=== PATIENT | female | born 1935 | race Caucasian/White ===

== ENCOUNTER → 2016-12-25 | Outpatient (CLI) | payer MEDICARE ==
[~2016-12-25] MED LIST: REGADENOSON 0.4 MG/5 ML SYRINGE IV ONE
--- NOTE | 2016-12-25 12:21 | P.STRESS ---
- Stress Test Note Stress Test Results/Findings: Exam Performed: NM stress lexiscan cardiolite Exam Date: 12/25/16 Reason for Exam: CP Height: 5 ft 1 in Weight: 68.039 kg Protocol: LEXISCAN Stage: Duration of Exercise: 5:00 Resting Heart Rate: 45 Resting Blood Pressure: 131/69 Maximum Achieved Heart Rate: 73 Maximum Achieved Blood Pressure: 170/64 85% PMHR: 100% PMHR: METS: Technologist Comment: Stress Test Results/Findings: The test is being done to evaluate symptoms of chest pain. Patient has history of hypertension and smoking. Patient EKG showed sinus rhythm with normal IL interval and QRS duration with mild nonspecific ST-T changes. EKG taken during and after the Lexiscan infusion did not reveal any changes to sized ischemia. Final impression: #1. Negative Lexiscan stress test #2. Report on nuclear images to be given by the radiologist
--- NOTE | 2016-12-25 13:28 | NM ---
EXAMINATION TYPE: NM stress lexiscan cardiolite DATE OF EXAM: 12/25/2016 COMPARISON: Previous exam 02/05/2013 HISTORY: Chest pain, R07.9 TECHNIQUE: After the intravenous administration of 10.91 mCi Tc 99m Sestamibi - Cardiolite resting S PECT images acquired 45 minutes post injection. The patient received 0.4mg Lexiscan, 29.7 mCi Tc 99m Sestamibi - Stress images obtained [address] injection FINDINGS: Review of stress and rest SPECT images demonstrates decreased uptake along the anteroapical left vent ricular myocardium on stress as compared to rest images. Gated analysis shows normal wall motion with an estimated left ventricular ejection fraction of 53 %. IMPRESSION: Pharmacologically induced left ventricular myocardial ischemia. A Yellow message has been communicated to Riley Alves MD via the [employer] Result system on 12/25/2016 1:25 PM, Message ID [id number].
--- NOTE | 2016-12-26 09:33 | EST ---
Stress Test Results/Findings: Exam Performed: NM stress lexiscan cardiolite Exam Date: 12/25/16 Reason for Exam: CP Height: 5 ft 1 in Weight: 68.039 kg Protocol: LEXISCAN Stage: Duration of Exercise: 5:00 Resting Heart Rate: 45 Resting Blood Pressure: 131/69 Maximum Achieved Heart Rate: 73 Maximum Achieved Blood Pressure: 170/64 85% PMHR: 100% PMHR: METS: Technologist Comment: Stress Test Results/Findings: The test is being done to evaluate symptoms of chest pain. Patient has history of hypertension and smoking. Patient EKG showed sinus rhythm with normal [place] interval and QRS duration with mild nonspecific ST-T changes. EKG taken during and after the Lexiscan infusion did not reveal any changes to sized ischemia. Final impression: #1. Negative Lexiscan stress test #2. Report on nuclear images to be given by the radiologist JAZMIN
== END | disposition home or self-care (01) ==
LOC: RADNMMAIN 08:25
PROVIDERS: ATTEND Family Medicine
DX: I25.9 Chronic ischemic heart disease, unspecified (principal)
CPT/HCPCS: 93017; 78452; A9500; J2785

== ENCOUNTER → 2016-12-26 | Outpatient (CLI) | payer MEDICARE ==
[2016-12-26 11:11] LABS: CH 30.8; CHCM 33.5; HCT 44.8 % (34.0-46.0); HDW 2.63; HGB 14.5 gm/dL (11.4-16.0); MCHC 32.4 g/dL (31.0-37.0); MCV 92.5 fL (80.0-100.0); Mean Platelet Volume 8.8; RBC 4.84 m/uL (3.80-5.40); RDW 14.3 % (11.5-15.5); WBC 4.7 k/uL (3.8-10.6)
[2016-12-26 11:35] LABS: ALT 42 U/L (9-52); AST 28 U/L (14-36); Anion Gap 9 mmol/L; Blood Urea Nitrogen 15 mg/dL (7-17); Carbon Dioxide 27 mmol/L (22-30); Chloride 108 mmol/L (98-107); Cholesterol 210 mg/dL (<200); HDL Cholesterol 45 mg/dL (40-60); Non-African American GFR(MDRD) 57 (>60 ml/min/1.73 sqM); Potassium 4.5 mmol/L (3.5-5.1); Sodium 144 mmol/L (137-145)
== END | disposition home or self-care (01) ==
LOC: LABPAT 10:44
PROVIDERS: ATTEND Internal Medicine Cardiovascular Disease
DX: Z01.812 Encounter for preprocedural laboratory examination (principal); E78.2 Mixed hyperlipidemia; R07.9 Chest pain, unspecified
CPT/HCPCS: 80051; 80061; 82565; 84450; 84460; 84520; 85027

== ENCOUNTER 2017-01-03 06:25 | Day surgery (SDC) | payer MEDICARE ==
[2016-12-27 16:37] VITALS: BMI 28.3
[~2017-01-03 06:25] MED LIST changes: +ALPRAZolam 0.25 MG TAB PO PRN; +ALPRAZolam 0.5 MG TAB PO PRN; +ASPIRIN 325 MG TAB PO STA; +ATORVASTATIN 80 MG TAB PO STA; +NITROGLYCERIN SL TABS 0.4 MG TAB SUBLINGUAL PRN; -REGADENOSON 0.4 MG/5 ML SYRINGE IV ONE; +SODIUM CHLORIDE 0.9% 1,000 ML in EMPTY BAG 1 BAG IV ONE
[2017-01-03 07:14] VITALS: TEMP 98
[2017-01-03] MEDS ORDERED: LIDOCAINE 2% INJ 20 MG/ML (20 ML MDV) ONE ×2 (07:19)
[2017-01-03 07:25] LABS: Anion Gap 10 mmol/L; Blood Urea Nitrogen 17 mg/dL (7-17); Calcium 8.9 mg/dL (8.4-10.2); Carbon Dioxide 20 mmol/L (22-30); Chloride 111 mmol/L (98-107); Glucose 90 mg/dL (74-99); Non-African American GFR(MDRD) 60 (>60 ml/min/1.73 sqM); Sodium 141 mmol/L (137-145)
[2017-01-03] MEDS ORDERED: fentaNYL (PF) 50 MCG/ML 2 ML AMP ONE (07:32)
[2017-01-03] MEDS ORDERED: diphenhydrAMINE 50 MG/ML 1 ML VIAL ONE (07:32)
[2017-01-03] MEDS ORDERED: MIDAZOLAM 2 MG/2 ML VIAL ONE (07:32)
[2017-01-03] MEDS ORDERED: LIDOCAINE 2% INJ 20 MG/ML SQ ONE (07:37)
[2017-01-03] MEDS ORDERED: MIDAZOLAM 2 MG/2 ML VIAL IV ONE (07:38)
[2017-01-03] MEDS ORDERED: diphenhydrAMINE 50 MG/ML 1 ML VIAL IVP ONE (07:39)
[2017-01-03 07:53] LABS: Potassium 5.6 mmol/L (3.5-5.1)
[2017-01-03] MEDS ORDERED: RX INFO: IV CONTRAST WAS GIVEN 1 EACH MISC MISCELLANE PRN (07:54)
[2017-01-03] MEDS ORDERED: IOHEXOL 350 MG/ML 125ML BOTTLE INJ ONE (07:55)
[2017-01-03] MEDS ORDERED: SODIUM CHLORIDE 0.9% 1,000 ML IV SCH (08:00)
--- NOTE | 2017-01-03 09:00 | CC ---
CARDIAC CATHETERIZATION INDICATION Chest pain with abnormal stress test. PROCEDURE NOTE After obtaining informed consent, left heart catheterization and coronary angiogram are performed via the right femoral artery using standard Riley catheters. Patient tolerated the procedure well without any obvious immediate complications. A femoral angiogram was performed and Angio-Seal was deployed for hemostasis. Patient received conscious sedation and the total sedation time was 15 minutes. FINDINGS: 1. HEMODYNAMICS: Left ventricular end-diastolic pressure is 16 to 18 mm. There is no significant gradient across the aortic valve. 2. LEFT VENTRICULOGRAM: Left ventriculogram is not performed. 3. ANGIOGRAPHIC DATA: LEFT MAIN CORONARY ARTERY: Left main coronary artery is a normal size vessel and is free of stenosis, divides into left anterior descending coronary artery and circumflex coronary artery. LAD appears calcified, shows mild atherosclerotic plaque, but no focal areas of stenosis. Left circumflex coronary artery is a nondominant vessel, shows mild nonobstructive disease. Right coronary artery is a large dominant vessel. It shows calcification and plaque build up, but no focal areas of stenosis. CONCLUSIONS 1. Mild nonobstructive coronary artery disease 2. Elevated left ventricular end-diastolic pressures. 3. False positive stress test. PLAN Patient will be treated with optimal medical therapy. Will review her outpatient lipid profile and start her on statins if necessary. JAZMIN
[2017-01-03 11:56] VITALS: BP 153/72; PULSE 43; RESP 18
== END 2017-01-03 13:12 | disposition home or self-care (01) ==
LOC: CATHCVL 06:25
PROVIDERS: ATTEND Internal Medicine Cardiovascular Disease
DX: I25.10 Atherosclerotic heart disease of native coronary artery without angina pectoris (principal); I25.84 Coronary atherosclerosis due to calcified coronary lesion; I10 Essential (primary) hypertension; Z87.891 Personal history of nicotine dependence; E07.9 Disorder of thyroid, unspecified; Z79.82 Long term (current) use of aspirin; Z79.51 Long term (current) use of inhaled steroids; Z79.899 Other long term (current) drug therapy; Z88.5 Allergy status to narcotic agent; Z88.0 Allergy status to penicillin; Z88.2 Allergy status to sulfonamides
CPT/HCPCS: 80048; 93458

== ENCOUNTER 2017-01-18 10:03 | Day surgery (SDC) | payer MEDICARE ==
[2017-01-16 15:22] VITALS: BMI 28.3
[~2017-01-18 10:03] MED LIST changes: -ALPRAZolam 0.25 MG TAB PO PRN; -ALPRAZolam 0.5 MG TAB PO PRN; -ASPIRIN 325 MG TAB PO STA; -ATORVASTATIN 80 MG TAB PO STA; +LACTATED RINGERS 1,000 ML IV SCH; +LIDOCAINE 1% 20 ML VIAL (10MG/ML) FOR IV START INTRADERMA PRN; -NITROGLYCERIN SL TABS 0.4 MG TAB SUBLINGUAL PRN; -SODIUM CHLORIDE 0.9% 1,000 ML in EMPTY BAG 1 BAG IV ONE
[2017-01-18 10:37] VITALS: RESP 16; TEMP 98.2
[2017-01-18] MEDS ORDERED: LIDOCAINE 1% INJ 10MG/ML (20 ML MDV) ONE (10:43)
[2017-01-18] MEDS ORDERED: PROPOFOL 10 MG/ML 20 ML VIAL IV ONE (10:43)
[2017-01-18 11:06] VITALS: BP 109/53; PULSE 48
--- NOTE | 2017-01-18 11:10 | P.PCN ---
Date of Procedure: 01/18/17 Procedure(s) Performed: Procedure: Esophagogastroduodenoscopy and biopsy. Preoperative diagnosis: Dysphagia and odynophagia. Postoperative diagnosis: 1. Very small sliding hiatal hernia but no obvious esophagitis or conjugated reflux disease. 2. Mild antral gastritis. 3. Multiple biopsies obtained from the duodenum, antrum and esophagus. Preparation and sedation: Was provided by anesthesia. Brief clinical history: The patient is a 81-year-old female who is referred for this evaluation because of issues with swallowing that she has been experiencing over the last year or so. She mentions dysphagia and odynophagia. There is no weight loss or other alarm symptoms. She does have history of reflux and is on acid suppressive medications. She had no recent upper endoscopy. This evaluation is to rule out complicated reflux disease or other pathology. Procedure: With the patient on her left lateral decubitus position and after informed consent and adequate sedation, I passed the Olympus-GIF 160 video upper endoscope through the cricopharyngeus down the esophagus. GE junction was around 37 cm from the incisors and there was a small sliding hiatal hernia. The endoscope was then passed into the stomach which was associated with air and inspected in detail including the retroflex view in the cardia. There was minimal mottling and erythema in the antrum but no ulcers or erosions. Pyloric channel, duodenal bulb, post bulbar area and descending duodenum showed no obvious abnormalities. Because of her symptoms, I obtained biopsies from the duodenum, antrum and esophagus then the endoscope was withdrawn. The patient tolerated the procedure well. Plan: The patient was reassured. Will await biopsy results. It is possible that we could be dealing with motility disorder at her age. I did not schedule further workup as long as she is not having any nutritional compromise or any progression of her symptoms, however, motility studies can be kept as a contingency based on her course. She will follow-up with you as planned and I will be happy to see in the office if needed.
== END 2017-01-18 12:05 | disposition home or self-care (01) ==
LOC: ORWHC2ENDO 10:03
DX: K21.0 Gastro-esophageal reflux disease with esophagitis (principal); K29.50 Unspecified chronic gastritis without bleeding; R13.10 Dysphagia, unspecified; K44.9 Diaphragmatic hernia without obstruction or gangrene; L40.9 Psoriasis, unspecified; M85.80 Other specified disorders of bone density and structure, unspecified site; I10 Essential (primary) hypertension; I25.10 Atherosclerotic heart disease of native coronary artery without angina pectoris; E78.5 Hyperlipidemia, unspecified; E07.9 Disorder of thyroid, unspecified; Z88.5 Allergy status to narcotic agent; Z88.0 Allergy status to penicillin; Z88.2 Allergy status to sulfonamides; Z91.041 Radiographic dye allergy status; Z79.899 Other long term (current) drug therapy
CPT/HCPCS: 88305; 88342; 43239; J2001; J2704

== ENCOUNTER → 2017-01-26 | Outpatient (CLI) | payer MEDICARE ==
[2017-01-26 14:15] LABS: Basophils # (A) 0.1 k/uL (0-0.2); Basophils % (A) 1 %; CH 30.7; CHCM 33.5; Eosinophils # (A) 0.2 k/uL (0-0.7); Eosinophils % (A) 2 %; HDW 2.56; HGB 14.7 gm/dL (11.4-16.0); Luc # (Auto) 0.12; Luc % (Auto) 1; Lymphocytes % (A) 12 %; MCHC 32.6 g/dL (31.0-37.0); Mean Platelet Volume 8.8; Monocytes # (A) 0.5 k/uL (0-1.0); Monocytes % (A) 6 %; Neutrophils # (A) 6.8 k/uL (1.3-7.7); Neutrophils % (A) 78 %; RBC 4.89 m/uL (3.80-5.40); RDW 14.4 % (11.5-15.5); WBC 8.8 k/uL (3.8-10.6); WBC (Perox) 8.88
[2017-01-26 14:26] LABS: ALT 32 U/L (9-52); AST 22 U/L (14-36); Alkaline Phosphatase 64 U/L (38-126); Amylase <30 U/L (30-110); Anion Gap 10 mmol/L; Blood Urea Nitrogen 14 mg/dL (7-17); Calcium 9.7 mg/dL (8.4-10.2); Carbon Dioxide 26 mmol/L (22-30); Chloride 103 mmol/L (98-107); Glucose 104 mg/dL (74-99); Non-African American GFR(MDRD) 54 (>60 ml/min/1.73 sqM); Potassium 4.6 mmol/L (3.5-5.1); Sodium 139 mmol/L (137-145); Total Bilirubin 0.7 mg/dL (0.2-1.3); Total Protein 7.1 g/dL (6.3-8.2)
--- NOTE | 2017-01-26 14:30 | XR ---
2 view abdomen HISTORY: Nausea, difficulty breathing and cough 2 views of the abdomen on 3 images. Lung bases are clear. No pneumoperitoneum or bowel obstruction. There is a spinal curvature. Question metallic artifact over the midline inferiorly. Probable phleboliths within the pelvis. Calcification present at the level just inferior of the L5 transverse process on the right measures approximately 3 mm. IMPRESSION: Nonobstructive bowel gas pattern. Additional findings above. Follow-up as indicated. Diff icult to exclude ureteral calculus.
--- NOTE | 2017-01-26 14:31 | XR ---
EXAMINATION TYPE: XR chest 2V DATE OF EXAM: 01/26/2017 COMPARISON: Prior chest x-ray 03/23/2014 HISTORY: Cough, difficulty breathing, nausea TECHNIQUE: Frontal and lateral views of the chest are obtained. FINDINGS: There is no focal air space opacity, pleural effusion, or pneumothorax seen. The cardiac silhouette size is stable, heart size may be accentuated by rotation. Patient is rotated. The osseou s structures are intact. IMPRESSION: No acute cardiopulmonary process.
== END | disposition home or self-care (01) ==
LOC: LABWHC1 13:48
PROVIDERS: ATTEND Family Medicine
DX: R11.0 Nausea (principal); R05 Cough
CPT/HCPCS: 36415; 71020; 74020; 80053; 82150; 83690; 85025

== ENCOUNTER 2018-02-04 11:26 | Observation (INO) | payer MEDICARE ==
[2018-02-04] MEDS ORDERED: methylPREDNISolone SOD SUCCI 125 MG/2 ML VIAL IV STA (11:56)
--- NOTE | 2018-02-04 11:56 | ED ---
Skin/Abscess/FB HPI <Adrian Greene - Last Filed: 02/04/18 13:12> - General Source: patient, RN notes reviewed, old records reviewed Mode of arrival: ambulatory Limitations: no limitations <Norma Nielsen - Last Filed: 02/04/18 13:45> - General Chief complaint: Skin/Abscess/Foreign Body Stated complaint: allergic rxn Time Seen by Provider: 02/04/18 11:35 - History of Present Illness Initial comments: 82-year-old female presents for his arms today with 10 days of diffuse rash over her arms, legs, abdomen and back. Patient reports that she thinks that 10 days ago she was cutting in the garden and thinks she was exposed to possibly poison oak poison ale. She does have a significant history of psoriasis. She reports sphincter from her psoriasis over the past few years. (Norma Nielsen) - Related Data Home Medications Medication Instructions Recorded Confirmed Aspirin EC [Ecotrin] 81 mg PO HS 03/23/14 02/04/18 Candesartan [Atacand] 32 mg PO HS 03/23/14 02/04/18 Calcium Carbonate [Calcium] 600 mg PO DAILY 02/15/15 02/04/18 Cholecalciferol [Vitamin D3] 2,000 unit PO QAM 02/15/15 02/04/18 Levothyroxine Sodium [Synthroid] 50 mcg PO QAM 02/15/15 02/04/18 Montelukast [Singulair] 10 mg PO DAILY 02/15/15 02/04/18 Ranitidine HCl [Zantac] 150 mg PO BID 02/15/15 02/04/18 Fluticasone Nasal [place] [Flonase 2 spr EA NOSTRIL DAILY 09/06/15 02/04/18 Nasal [place]] amLODIPine [Norvasc] 5 mg PO BID 09/06/15 02/04/18 Alendronate Sodium [Fosamax] 70 mg PO MO 12/27/16 02/04/18 Atenolol [Tenormin] 25 mg PO QAM 12/27/16 02/04/18 Oxybutynin Chloride [Ditropan XL] 10 mg PO HS 12/27/16 02/04/18 diphenhydrAMINE [Benadryl] 25 mg PO QID PRN 01/16/17 02/04/18 Biotin 5,000 mcg PO DAILY 02/04/18 02/04/18 Allergies Allergy/AdvReac Type Severity Reaction Status Date / Time Iodinated Contrast- Oral and Allergy head to Verified 02/04/18 12:32 IV Dye toe rash Penicillins Allergy Rash/Hives Verified 02/04/18 12:32 Sulfa (Sulfonamide Allergy Unknown Verified 02/04/18 12:32 Antibiotics) Childhood sulfamethoxazole Allergy Unknown Verified 02/04/18 12:32 [From Bactrim] Childhood trimethoprim [From Bactrim] Allergy Unknown Verified 02/04/18 12:32 Childhood codeine AdvReac Nausea & Verified 02/04/18 12:32 Vomiting & Diarrhea Review of Systems ROS Other: All systems not noted in ROS Statement are negative. <Adrian Greene - Last Filed: 02/04/18 13:12> ROS Other: All systems not noted in ROS Statement are negative. <Norma Nielsen - Last Filed: 02/04/18 13:45> ROS Statement: Those systems with pertinent positive or pertinent negative responses have been documented in the HPI. Past Medical History Past Medical History: GERD/Reflux, Hyperlipidemia, Hypertension, Skin Disorder Additional Past Medical History / Comment(s): currently rash after heart cath on 01-03-17,hx psoriasis, osteoporosis, sinus problems, states difficlulty swallowing History of Any Multi-Drug Resistant Organisms: None Reported Past Surgical History: Appendectomy, Breast Surgery, Heart Catheterization, Hysterectomy, Tonsillectomy Additional Past Surgical History / Comment(s): cystocele, rectocele repair, arnold cataracts, right shoulder. rt breast benign lumpectomy Past Anesthesia/Blood Transfusion Reactions: No Reported Reaction Additional Past Anesthesia/Blood Transfusion Reaction / Comment(s): sensitive gag reflex Past Psychological History: No Psychological Hx Reported Smoking Status: Former smoker Past Alcohol Use History: None Reported Past Drug Use History: None Reported - Past Family History Mother Family Medical History: No Reported History Father History Unknown: Yes <Norma Nielsen - Last Filed: 02/04/18 13:45> General Exam <Adrian Greene - Last Filed: 02/04/18 13:12> Limitations: no limitations General appearance: alert, in no apparent distress Head exam: Present: atraumatic, normocephalic, normal inspection Eye exam: Present: normal appearance, PERRL, EOMI. Absent: scleral icterus, conjunctival injection, periorbital swelling ENT exam: Present: normal exam, mucous membranes moist Neck exam: Present: normal inspection. Absent: tenderness, meningismus, lymphadenopathy Respiratory exam: Present: normal lung sounds bilaterally. Absent: respiratory distress, wheezes, rales, rhonchi, stridor Cardiovascular Exam: Present: regular rate, normal rhythm, normal heart sounds. Absent: systolic murmur, diastolic murmur, rubs, gallop, clicks GI/Abdominal exam: Present: soft, normal bowel sounds. Absent: distended, tenderness, guarding, rebound, rigid Extremities exam: Present: normal inspection, full ROM, normal capillary refill. Absent: tenderness, pedal edema, joint swelling, calf tenderness Back exam: Present: normal inspection Neurological exam: Present: alert, oriented X3, CN II-XII intact Psychiatric exam: Present: normal affect, normal mood Skin exam: Present: warm, dry, intact, normal color, rash (Patient has a small petechial like rash over the lower extremities of the legs. She has a diffuse rash over bilateral arms, lower back abdomen consistent with urticaria are likely exposure to poison oak or poison ale. Patient reports it's extremely pruritic.) <Norma Nielsen - Last Filed: 02/04/18 13:45> - General Exam Comments Initial Comments: Well-appearing 82-year-old female. No significant distress. (Norma Nielsen) Course <Adrian Greene - Last Filed: 02/04/18 13:12> <Norma Nielsen - Last Filed: 02/04/18 13:45> Vital Signs 02/04/18 11:26 Temperature 97.8 F Pulse Rate 61 Respiratory 18 Rate Blood Pressure 148/63 O2 Sat by Pulse 99 Oximetry - Reevaluation(s) Reevaluation #1: 02/04/18 13:12 Patient reevaluated by myself, Dr. Greene. Patient does have erythematous rash of her lower extremities that spares the trunk and head. Rash is mostly urticarial in appearance. Lower extremities does have some petechial type appearance. There is evidence of pancytopenia which appears new from previous blood draw one year ago. Case was discussed with Tia who will admit for Dr. Alves. Hematology will be placed on consult. (Adrian Greene) Medical Decision Making - Lab Data Result diagrams: 02/04/18 12:09 02/04/18 12:09 <Adrian Greene - Last Filed: 02/04/18 13:12> - Lab Data Result diagrams: 02/04/18 12:09 02/04/18 12:09 <Norma Nielsen - Last Filed: 02/04/18 13:45> - Medical Decision Making 82-year-old female presents emergency department today with chief complaint of diffuse rash. She was sent here by her PCP. Patient was exposed to her garden approximately 10 days ago. She does appear to have ALLERGIC reaction type rash over the bilateral arms, lower extremities is pruritic. It seems to be in a pattern where her clothes were not covering. Patient also has some areas of petechial like rash over lower extremity. She is afebrile and otherwise appears well. Her white blood cell count within normal limits. She does have a diminished platelet count of 87,000. She's had no previous evidence of trauma side pain and last labs. Patient was given IV steroids and Benadryl Pepcid for the Rash. We discussed the case with Dr. Giordano's physician family and divorce legal assistant Tia De Paz recommends admission. We'll consult Dr. Davis for early from the site of pain and petechial like rash. (Norma Nielsen) - Lab Data Lab Results 02/04/18 02/04/18 Range/Units 12:09 12:09 WBC 7.1 (3.8-10.6) k/uL RBC 5.11 (3.80-5.40) m/uL Hgb 14.5 (11.4-16.0) gm/dL Hct 45.1 (34.0-46.0) % MCV 88.3 (80.0-100.0) fL MCH 28.3 (25.0-35.0) pg MCHC 32.1 (31.0-37.0) g/dL RDW 13.0 (11.5-15.5) % Plt Count 86 L (150-450) k/uL Neutrophils % 71 % Lymphocytes % 16 % Monocytes % 5 % Eosinophils % 7 % Basophils % 0 % Neutrophils # 5.0 (1.3-7.7) k/uL Lymphocytes # 1.1 (1.0-4.8) k/uL Monocytes # 0.4 (0-1.0) k/uL Eosinophils # 0.5 (0-0.7) k/uL Basophils # 0.0 (0-0.2) k/uL Manual Slide Review Performed RBC Morphology Normal Sodium 141 (137-145) mmol/L Potassium 4.6 (3.5-5.1) mmol/L Chloride 110 H (98-107) mmol/L Carbon Dioxide 22 (22-30) mmol/L Anion Gap 9 mmol/L BUN 14 (7-17) mg/dL Creatinine 0.92 (0.52-1.04) mg/dL Est GFR (CKD-EPI)AfAm 68 (>60 ml/min/1.73 sqM) Est GFR (CKD-EPI)NonAf 59 (>60 ml/min/1.73 sqM) Glucose 96 (74-99) mg/dL Calcium 9.5 (8.4-10.2) mg/dL Disposition <Adrian Greene - Last Filed: 02/04/18 13:12> Is patient prescribed a controlled substance at d/c from ED?: No Time of Disposition: 13:45 <Norma Nielsen - Last Filed: 02/04/18 13:45> Clinical Impression: Allergic reaction, Thrombocytopenia Disposition: ADMITTED IP TO THIS HOSP Condition: Good Referrals: Riley Alves MD [Primary Care Provider] - 1-2 days
[2018-02-04] MEDS ORDERED: diphenhydrAMINE 50 MG/ML 1 ML VIAL IVP STA (11:57)
[2018-02-04] MEDS ORDERED: FAMOTIDINE 20 MG/2 ML VIAL IV STA (11:57)
[2018-02-04 12:27] LABS: Basophils % (A) 0 %; Eosinophils # (A) 0.5 k/uL (0-0.7); Eosinophils % (A) 7 %; HCT 45.1 % (34.0-46.0); HGB 14.5 gm/dL (11.4-16.0); Lymphocytes # (A) 1.1 k/uL (1.0-4.8); Lymphocytes % (A) 16 %; MCH 28.3 pg (25.0-35.0); MCHC 32.1 g/dL (31.0-37.0); MCV 88.3 fL (80.0-100.0); Mean Platelet Volume 8.2; Monocytes # (A) 0.4 k/uL (0-1.0); Monocytes % (A) 5 %; Neutrophils % (A) 71 %; RBC 5.11 m/uL (3.80-5.40); WBC 7.1 k/uL (3.8-10.6)
[2018-02-04 12:32] LABS: Calcium 9.5 mg/dL (8.4-10.2); Potassium 4.6 mmol/L (3.5-5.1)
[2018-02-04 13:02] LABS: Platelet Count 86 k/uL (150-450)
[2018-02-04] MEDS ORDERED: ACETAMINOPHEN TAB 325 MG TAB PO PRN (13:45)
[2018-02-04] MEDS ORDERED: NALOXONE 0.4 MG/ML 1 ML VIAL IV PRN (13:45)
[2018-02-04] MEDS ORDERED: traMADol 50 MG TAB PO PRN (13:45)
[2018-02-04] MEDS ORDERED: oxyCODONE-APAP 5-325MG 1 EACH TAB PO PRN (13:45)
[2018-02-04] MEDS ORDERED: ONDANSETRON 4 MG/2 ML VIAL IVP PRN (13:45)
[2018-02-04] MEDS ORDERED: IBUPROFEN 400 MG TAB PO PRN (13:45)
[2018-02-04 14:15] LABS: Partial Thromboplastin Time 22.7 sec (22.0-30.0); Prothrombin Time 9.6 sec (9.0-12.0)
[2018-02-04] MEDS: SODIUM CHLORIDE 0.9% 1,000 ML IV SCH (14:56)
[2018-02-04 15:27] VITALS: BMI 28.9
[2018-02-04] MEDS: diphenhydrAMINE 50 MG/ML 1 ML VIAL IVP SCH (20:43)
[2018-02-04] MEDS: methylPREDNISolone SOD SUCCI 125 MG/2 ML VIAL IV SCH (20:43)
[2018-02-04] MEDS: LOSARTAN 50 MG TAB PO SCH (23:16)
[2018-02-04] MEDS: ASPIRIN 81 MG PO SCH (23:17)
[2018-02-04] MEDS: FAMOTIDINE 20 MG TAB PO SCH (23:17)
[2018-02-05] MEDS: SODIUM CHLORIDE 0.9% 1,000 ML IV SCH ×2 (02:00→16:38)
[2018-02-05] MEDS: diphenhydrAMINE 50 MG/ML 1 ML VIAL IVP SCH ×3 (04:16→20:05)
[2018-02-05] MEDS: methylPREDNISolone SOD SUCCI 125 MG/2 ML VIAL IV SCH ×3 (04:16→20:04)
[2018-02-05] MEDS: LEVOTHYROXINE 50 MCG TAB PO SCH (05:51)
[2018-02-05] MEDS: FAMOTIDINE 20 MG TAB PO SCH ×2 (09:47→20:05)
[2018-02-05] MEDS: amLODIPine 5 MG TAB PO SCH ×2 (09:47→20:05)
[2018-02-05] MEDS: ATENOLOL 25 MG TAB PO SCH (09:48)
[2018-02-05] MEDS: MONTELUKAST 10 MG TAB PO SCH (09:48)
[2018-02-05] MEDS: FLUTICASONE 50MCG/SPRAY NASAL 16GM EA NOSTRIL SCH (09:48)
[2018-02-05] MEDS ORDERED: CALCIUM CARBONATE 500 MG CHEWABLE PO SCH (12:00)
--- NOTE | 2018-02-05 12:08 | P.HPIM ---
History of Present Illness 82-year-old female presented to family physician with generalized for rash. Noted to have some petechial rash to legs. Patient does have a history of psoriasis Patient noted to have thrombocytopenia after ER evaluation was admitted to the hospital for evaluation by hematology Review of Systems Integumentary: Reports rash, Reports unusual bruising Past Medical History Past Medical History: GERD/Reflux, Hyperlipidemia, Hypertension, Skin Disorder Additional Past Medical History / Comment(s): currently rash after heart cath on 01-03-17,hx psoriasis, osteoporosis, sinus problems, states difficlulty swallowing History of Any Multi-Drug Resistant Organisms: None Reported Past Surgical History: Appendectomy, Breast Surgery, Heart Catheterization, Hysterectomy, Tonsillectomy Additional Past Surgical History / Comment(s): cystocele, rectocele repair, arnold cataracts, right shoulder. rt breast benign lumpectomy Past Anesthesia/Blood Transfusion Reactions: No Reported Reaction Additional Past Anesthesia/Blood Transfusion Reaction / Comment(s): sensitive gag reflex Past Psychological History: No Psychological Hx Reported Smoking Status: Former smoker Past Alcohol Use History: None Reported Past Drug Use History: None Reported - Past Family History Mother Family Medical History: No Reported History Father History Unknown: Yes Medications and Allergies Home Medications Medication Instructions Recorded Confirmed Type Aspirin EC [Ecotrin] 81 mg PO HS 03/23/14 02/04/18 History Candesartan [Atacand] 32 mg PO HS 03/23/14 02/04/18 History Calcium Carbonate [Calcium] 600 mg PO DAILY 02/15/15 02/04/18 History Cholecalciferol [Vitamin D3] 2,000 unit PO QAM 02/15/15 02/04/18 History Levothyroxine Sodium [Synthroid] 50 mcg PO QAM 02/15/15 02/04/18 History Montelukast [Singulair] 10 mg PO DAILY 02/15/15 02/04/18 History Ranitidine HCl [Zantac] 150 mg PO BID 02/15/15 02/04/18 History Fluticasone Nasal [place] [Flonase 2 spr EA NOSTRIL DAILY 09/06/15 02/04/18 History Nasal [place]] amLODIPine [Norvasc] 5 mg PO BID 09/06/15 02/04/18 History Alendronate Sodium [Fosamax] 70 mg PO MO 12/27/16 02/04/18 History Atenolol [Tenormin] 25 mg PO QAM 12/27/16 02/04/18 History diphenhydrAMINE [Benadryl] 25 mg PO QID PRN 01/16/17 02/04/18 History Biotin 5,000 mcg PO DAILY 02/04/18 02/04/18 History Allergies Allergy/AdvReac Type Severity Reaction Status Date / Time Iodinated Contrast- Oral and Allergy head to Verified 02/04/18 15:03 IV Dye toe rash Penicillins Allergy Rash/Hives Verified 02/04/18 15:03 Sulfa (Sulfonamide Allergy Unknown Verified 02/04/18 15:03 Antibiotics) Childhood sulfamethoxazole Allergy Unknown Verified 02/04/18 15:03 [From Bactrim] Childhood trimethoprim [From Bactrim] Allergy Unknown Verified 02/04/18 15:03 Childhood codeine AdvReac Nausea & Verified 02/04/18 15:03 Vomiting & Diarrhea Physical Exam Vitals: Vital Signs Temp Pulse Pulse Resp BP BP Pulse Ox 02/05/18 07:52 98 F 72 20 139/61 98 02/05/18 04:10 97.0 F L 66 16 124/62 99 02/04/18 22:18 97.1 F L 70 16 126/59 98 02/04/18 20:05 97.1 F L 63 18 114/57 95 02/04/18 15:30 57 L 02/04/18 15:00 97.1 F L 57 L 16 150/62 97 02/04/18 14:12 97.5 F L 55 L 16 153/63 98 Intake and Output 02/04/18 02/05/18 02/05/18 22:59 06:59 14:59 Output Total 200 Balance -200 Output: Urine 200 Other: # Voids 1 1 - Constitutional General appearance: mild distress - EENT Eyes: PERRLA Ears: bilateral: normal - Neck Neck: normal ROM - Respiratory Respiratory: bilateral: CTA - Cardiovascular Rhythm: regular - Gastrointestinal General gastrointestinal: soft - Integumentary Integumentary: rash - Neurologic Neurologic: CNII-XII intact - Musculoskeletal Musculoskeletal: gait normal - Psychiatric Psychiatric: A&O x's 3, appropriate affect, intact judgment & insight Results CBC & Chem 7: 02/04/18 12:09 10/01/18 12:09 Labs: Abnormal Lab Results - Last 24 Hours (Table) 02/04/18 02/04/18 02/04/18 Range/Units 12:09 12:09 13:34 Plt Count 86 L (150-450) k/uL Fibrinogen 616 H (200-500) mg/dL Chloride 110 H (98-107) mmol/L Thrombosis Risk Factor Assmnt - Choose All That Apply Any of the Below Risk Factors Present?: Yes Each Factor Represents 1 point: Hx of IBD, Obesity (BMI >25) Other Risk Factors: No Other congenital or acquired thrombophilia - If yes, enter type in comment: No Thrombosis Risk Factor Assessment Total Risk Factor Score: 2 Thrombosis Risk Factor Assessment Level: Low Risk Assessment and Plan Plan: Assessment Acute ALLERGIC reaction contact dermatitis Thrombocytopenia History of psoriasis GERD Hyperlipidemia Hypertension Plan Consultation with hematology Awaiting a consultation hopeful discharge soon
[2018-02-05] MEDS: CHOLECALCIFEROL 1,000 UNIT TAB PO SCH (12:26)
--- NOTE | 2018-02-05 12:51 | P.CONS ---
History of Present Illness - Reason for Consult Consult date: 02/05/18 Thrombocytopenia Requesting physician: Norma Nielsen - Chief Complaint Rash - History of Present Illness Ms. Rodriguez is a very pleasant 82 year old female who presented to [facility] with a persistent rash. She states she was pulling tomatoes in her garden and eating a lot of them over the past week. She noted a rash starting on leg and just continued to spread over the past week, but apparently only appears to be located on areas that were not covered. She admits to a history of severe psoriasis requiring methotrexate treatments for approximately 2 years. She denies history of low platelets in past. On admission her platelet count found to be 89, and therfore we have been asked to see her. Review of Systems A 14 point review of systems assessed and completed and all negative except HPI Past Medical History Past Medical History: GERD/Reflux, Hyperlipidemia, Hypertension, Skin Disorder Additional Past Medical History / Comment(s): currently rash after heart cath on 01-03-17,hx psoriasis, osteoporosis, sinus problems, states difficlulty swallowing History of Any Multi-Drug Resistant Organisms: None Reported Past Surgical History: Appendectomy, Breast Surgery, Heart Catheterization, Hysterectomy, Tonsillectomy Additional Past Surgical History / Comment(s): cystocele, rectocele repair, arnold cataracts, right shoulder. rt breast benign lumpectomy Past Anesthesia/Blood Transfusion Reactions: No Reported Reaction Additional Past Anesthesia/Blood Transfusion Reaction / Comm: sensitive gag reflex Past Psychological History: No Psychological Hx Reported Smoking Status: Former smoker Past Alcohol Use History: None Reported Past Drug Use History: None Reported - Past Family History Mother Family Medical History: No Reported History Father History Unknown: Yes Medications and Allergies Home Medications Medication Instructions Recorded Confirmed Type Aspirin EC [Ecotrin] 81 mg PO HS 03/23/14 02/04/18 History Candesartan [Atacand] 32 mg PO HS 03/23/14 02/04/18 History Calcium Carbonate [Calcium] 600 mg PO DAILY 02/15/15 02/04/18 History Cholecalciferol [Vitamin D3] 2,000 unit PO QAM 02/15/15 02/04/18 History Levothyroxine Sodium [Synthroid] 50 mcg PO QAM 02/15/15 02/04/18 History Montelukast [Singulair] 10 mg PO DAILY 02/15/15 02/04/18 History Ranitidine HCl [Zantac] 150 mg PO BID 02/15/15 02/04/18 History Fluticasone Nasal [place] [Flonase 2 spr EA NOSTRIL DAILY 09/06/15 02/04/18 History Nasal [place]] amLODIPine [Norvasc] 5 mg PO BID 09/06/15 02/04/18 History Alendronate Sodium [Fosamax] 70 mg PO MO 12/27/16 02/04/18 History Atenolol [Tenormin] 25 mg PO QAM 12/27/16 02/04/18 History diphenhydrAMINE [Benadryl] 25 mg PO QID PRN 01/16/17 02/04/18 History Biotin 5,000 mcg PO DAILY 02/04/18 02/04/18 History Allergies Allergy/AdvReac Type Severity Reaction Status Date / Time Iodinated Contrast- Oral and Allergy head to Verified 02/04/18 15:03 IV Dye toe rash Penicillins Allergy Rash/Hives Verified 02/04/18 15:03 Sulfa (Sulfonamide Allergy Unknown Verified 02/04/18 15:03 Antibiotics) Childhood sulfamethoxazole Allergy Unknown Verified 02/04/18 15:03 [From Bactrim] Childhood trimethoprim [From Bactrim] Allergy Unknown Verified 02/04/18 15:03 Childhood codeine AdvReac Nausea & Verified 02/04/18 15:03 Vomiting & Diarrhea Physical Exam Vitals: Vital Signs Temp Pulse Pulse Resp BP BP Pulse Ox 02/05/18 11:57 97.6 F 69 15 124/56 97 02/05/18 07:52 98 F 72 20 139/61 98 02/05/18 04:10 97.0 F L 66 16 124/62 99 02/04/18 22:18 97.1 F L 70 16 126/59 98 02/04/18 20:05 97.1 F L 63 18 114/57 95 02/04/18 15:30 57 L 02/04/18 15:00 97.1 F L 57 L 16 150/62 97 02/04/18 14:12 97.5 F L 55 L 16 153/63 98 Intake and Output 02/04/18 02/05/18 02/05/18 22:59 06:59 14:59 Output Total 200 Balance -200 Output: Urine 200 Other: # Voids 1 1 - Constitutional General appearance: No acute distress, alert - EENT Eyes: PERRLA mouth no erythema ior exudates. - Neck Neck: normal ROM - Respiratory Respiratory: bilateral: CTA, no increased respiratory effort. - Cardiovascular Rhythm: regular rate and rhythm - Gastrointestinal General gastrointestinal: soft, non-distended, non-tender - Integumentary Integumentary: rash, dry scaly with erythema bilateral arms and legs sun exposed areas - Neurologic Neurologic: CNII-XII intact - Musculoskeletal Musculoskeletal: gait normal - Psychiatric Psychiatric: A&O x's 3, appropriate affect, intact judgment & insight Results CBC & Chem 7: 02/04/18 12:09 02/04/18 12:09 Labs: Abnormal Lab Results - Last 24 Hours (Table) 02/04/18 02/04/18 02/04/18 Range/Units 12:09 12:09 13:34 Plt Count 86 L (150-450) k/uL Fibrinogen 616 H (200-500) mg/dL Chloride 110 H (98-107) mmol/L Assessment and Plan Plan: Assessment and Recommendations: 1. Mild Thrombocytopenia: - This is likely related to an acute immune response, which at this time appears low grade caused from an inflammatory reaction evidenced by rash - Her platelet level on 02/04/18 is within a normal safe range. Above 50K - we will monitor this daily and perform a full immune work-up for confirmation of diagnosis. - If her platelets drop lower than 50K will consider immunosuppressant therapy with high dose, long taper corticosteroid. 2. Bilateral Arms and Leg Rash - Immune response likely - Possibily related to recent gardening - If biopsy is planned best to perform prior to high dose steroids as that may alter result findings 3. HX: Psoriasis and Methotrexate treatment: - Patient believes this was [id number] Physician Attests: I have completed the full history and physical of this patient and agree with above dictation by Moira Zarco NP, dictated as as scribe.
[2018-02-05 13:15] LABS: Albumin 3.7 g/dL (3.5-5.0); Potassium 4.4 mmol/L (3.5-5.1); Total Bilirubin 0.4 mg/dL (0.2-1.3); Total Protein 6.4 g/dL (6.3-8.2)
[2018-02-05 13:27] LABS: Basophils % (A) 0 %; Eosinophils % (A) 0 %; HCT 40.9 % (34.0-46.0); Lymphocytes % (A) 8 %; MCH 28.3 pg (25.0-35.0); MCHC 31.8 g/dL (31.0-37.0); Mean Platelet Volume 7.9; Monocytes # (A) 0.3 k/uL (0-1.0); Monocytes % (A) 2 %; Neutrophils # (A) 10.7 k/uL (1.3-7.7); Neutrophils % (A) 89 %; RBC 4.59 m/uL (3.80-5.40); RDW 13.2 % (11.5-15.5)
[2018-02-05 13:33] LABS: Platelet Count 229 k/uL (150-450)
[2018-02-05 13:42] LABS: C Reactive Protein 18.9 mg/L (<10.0)
[2018-02-05 16:40] LABS: Erythrocyte Sedimentation Rate 23 mm/hr (0-20)
[2018-02-05] MEDS: LOSARTAN 50 MG TAB PO SCH (20:06)
[2018-02-05] MEDS: ASPIRIN 81 MG PO SCH (20:07)
[2018-02-05 20:28] LABS: Iron Saturation 29.93 (12.00-45.00); Protein, Total 6.2 g/dL (6.2-8.2); Rheumatoid Factor 6 IU/mL (0-15)
[2018-02-06] MEDS: methylPREDNISolone SOD SUCCI 125 MG/2 ML VIAL IV SCH (03:54)
[2018-02-06] MEDS: diphenhydrAMINE 50 MG/ML 1 ML VIAL IVP SCH (03:54)
[2018-02-06] MEDS: SODIUM CHLORIDE 0.9% 1,000 ML IV SCH ×2 (03:54→07:10)
[2018-02-06] MEDS: LEVOTHYROXINE 50 MCG TAB PO SCH (07:13)
[2018-02-06] MEDS: FAMOTIDINE 20 MG TAB PO SCH (08:23)
[2018-02-06] MEDS: FLUTICASONE 50MCG/SPRAY NASAL 16GM EA NOSTRIL SCH (08:23)
[2018-02-06] MEDS: ATENOLOL 25 MG TAB PO SCH (08:23)
[2018-02-06] MEDS: MONTELUKAST 10 MG TAB PO SCH (08:23)
[2018-02-06] MEDS: amLODIPine 5 MG TAB PO SCH (08:23)
[2018-02-06] MEDS: CHOLECALCIFEROL 1,000 UNIT TAB PO SCH (08:24)
[2018-02-06 08:33] VITALS: BP 145/63; PULSE 63; RESP 16; TEMP 97.4
--- NOTE | 2018-02-06 11:10 | P.PN ---
Subjective Progress Note Date: 02/06/18 Principal diagnosis: Thrombocytopenia and B12 Deficiency. Kimberly is feeling better today. Her is at bedside. She has many questions regarding rash, blood work and follow-up. She does complain of itching skin and concerned on her care of skin when she leaves. Objective - Vital Signs Vital signs: Vital Signs Temp 97.4 F L 02/06/18 08:32 Pulse 63 02/06/18 08:32 Resp 16 02/06/18 08:32 BP 145/63 02/06/18 08:32 Pulse Ox 99 02/06/18 08:32 Intake & Output 02/05/18 02/06/18 02/06/18 18:59 06:59 18:59 Intake Total 500 Balance 500 Intake: Oral 500 Other: # Voids 2 1 1 - Exam - Constitutional General appearance: No acute distress, alert - EENT Eyes: PERRLA mouth no erythema ior exudates. - Neck Neck: normal ROM - Respiratory Respiratory: bilateral: CTA, no increased respiratory effort. - Cardiovascular Rhythm: regular rate and rhythm - Gastrointestinal General gastrointestinal: soft, non-distended, non-tender - Integumentary Integumentary: rash, dry scaly with erythema bilateral arms and legs sun exposed areas - Neurologic Neurologic: CNII-XII intact - Musculoskeletal Musculoskeletal: gait normal - Psychiatric Psychiatric: A&O x's 3, appropriate affect, intact judgment & insight - Labs CBC & Chem 7: 02/05/18 12:53 02/05/18 12:53 Labs: Abnormal Lab Results - Last 24 Hours (Table) 02/05/18 02/05/18 Range/Units 12:53 12:53 WBC 12.0 H (3.8-10.6) k/uL Neutrophils # 10.7 H (1.3-7.7) k/uL ESR 23 H (0-20) mm/hr Chloride 112 H (98-107) mmol/L Glucose 137 H (74-99) mg/dL C-Reactive Protein 18.9 H (<10.0) mg/L Assessment and Plan Plan: Assessment and Recommendations: 1. Mild Thrombocytopenia: Resolved - This is likely related to an acute immune response, which at this time appears low grade caused from an inflammatory reaction evidenced by rash - Her platelet level on 02/04/18 is within a normal safe range. Above 50K - we will monitor this daily and perform a full immune work-up for confirmation of diagnosis. - If her platelets drop lower than 50K will consider immunosuppressant therapy with high dose, long taper corticosteroid. 2. Bilateral Arms and Leg Rash - Immune response likely - Possibily related to recent gardening - If biopsy is planned best to perform prior to high dose steroids as that may alter result findings 3. Vitamin B12 Deficiency: - B12 Sublinguel daily HX: Psoriasis and Methotrexate treatment: - Patient believes this was [id number] Greater than 45 minutes counseling and coordinating care with skin care recommendations and answering questions related to suggestive products. All added to discharge instructions. Patient and State understanding and will follow-up karuna recheck CBC and Vitamin B12 in 2-3 weeks
--- NOTE | 2018-02-06 11:54 | P.DS ---
Providers Date of admission: 02/04/18 13:13 Expected date of discharge: 02/06/18 Attending physician: Riley Alves Consults: 02/04/18 13:48 Consult Physician Stat Consulting Provider: Santi Davis Consult Reason/Comments: Thrombocytopenia Do you want consulting provider notified?: Yes Primary care physician: Riley Alves Hospital Course: 82-year-old female is admitted from the emergency room with generalized rash and petechial rash to legs. Patient was found to have thrombocytopenia. Patient was evaluated by hematology. CBC showed improvement in the platelet count. Assessment acute ALLERGIC reaction contact dermatitis Thrombocytopenia acute immune response History of psoriasis with methotrexate GERD Hyperlipidemia Hypertension Plan Continue with prednisone Follow-up with hematology and physician Dr. Riley Alves Patient Condition at Discharge: Good Plan - Discharge Summary Discharge Rx Participant: Yes New Discharge Prescriptions: New Acetaminophen Tab [Tylenol] 650 mg PO Q6HR PRN tab PRN Reason: Mild Pain Or Fever > 100.5 Ibuprofen [Motrin] 400 mg PO Q6HR PRN tab PRN Reason: Mild Pain Or Fever > 100.5 oxyCODONE-APAP 5-325MG [Percocet 5-325 mg] 1 each PO Q4HR PRN tab PRN Reason: Severe Pain predniSONE 10 mg PO DAILY #40 tab traMADol HCl [Ultram] 50 mg PO Q6H PRN tab PRN Reason: Moderate Pain Cyanocobalamin (Vitamin B-12) [Vitamin B-12] 1,000 mcg PO DAILY #30 tablet Petrolatum, White [Aquaphor] 1 applic TOPICAL BID #60 gm Triamcinolone 0.1% Cream [Kenalog 0.1% Cream] 1 applic TOPICAL BID #45 applic Continue Candesartan [Atacand] 32 mg PO HS Aspirin EC [Ecotrin Low Dose] 81 mg PO HS Calcium Carbonate [Calcium] 600 mg PO DAILY Ranitidine HCl [Zantac] 150 mg PO BID Levothyroxine Sodium [Synthroid] 50 mcg PO QAM Cholecalciferol [Vitamin D3] 2,000 unit PO QAM Montelukast [Singulair] 10 mg PO DAILY amLODIPine [Norvasc] 5 mg PO BID Fluticasone Nasal [place] [Flonase Nasal [place]] 2 spr EA NOSTRIL DAILY Atenolol [Tenormin] 25 mg PO QAM Alendronate Sodium [Fosamax] 70 mg PO MO diphenhydrAMINE [Benadryl] 25 mg PO QID PRN PRN Reason: Rash Biotin 5,000 mcg PO DAILY Discharge Medication List Aspirin EC [Ecotrin Low Dose] 81 mg PO HS 03/23/14 [History] Candesartan [Atacand] 32 mg PO HS 03/23/14 [History] Calcium Carbonate [Calcium] 600 mg PO DAILY 02/15/15 [History] Cholecalciferol [Vitamin D3] 2,000 unit PO QAM 02/15/15 [History] Levothyroxine Sodium [Synthroid] 50 mcg PO QAM 02/15/15 [History] Montelukast [Singulair] 10 mg PO DAILY 02/15/15 [History] Ranitidine HCl [Zantac] 150 mg PO BID 02/15/15 [History] Fluticasone Nasal [place] [Flonase Nasal [place]] 2 spr EA NOSTRIL DAILY 09/06/15 [ History] amLODIPine [Norvasc] 5 mg PO BID 09/06/15 [History] Alendronate Sodium [Fosamax] 70 mg PO MO 12/27/16 [History] Atenolol [Tenormin] 25 mg PO QAM 12/27/16 [History] diphenhydrAMINE [Benadryl] 25 mg PO QID PRN 01/16/17 [History] Biotin 5,000 mcg PO DAILY 02/04/18 [History] Acetaminophen Tab [Tylenol] 650 mg PO Q6HR PRN tab 02/06/18 [Rx] Cyanocobalamin (Vitamin B-12) [Vitamin B-12] 1,000 mcg PO DAILY #30 tablet 02/06 [Rx] Ibuprofen [Motrin] 400 mg PO Q6HR PRN tab 02/06/18 [Rx] Petrolatum, White [Aquaphor] 1 applic TOPICAL BID #60 gm 02/06/18 [Rx] Triamcinolone 0.1% Cream [Kenalog 0.1% Cream] 1 applic TOPICAL BID #45 applic [Rx] oxyCODONE-APAP 5-325MG [Percocet 5-325 mg] 1 each PO Q4HR PRN tab 02/06/18 [Rx] predniSONE 10 mg PO DAILY #40 tab 02/06/18 [Rx] traMADol HCl [Ultram] 50 mg PO Q6H PRN tab 02/06/18 [Rx] Follow up Appointment(s)/Referral(s): Riley Alves MD [Primary Care Provider] - 02/08/18 11:20 am Santi Davis MD [STAFF PHYSICIAN] - 2 Weeks Activity/Diet/Wound Care/Special Instructions: SKIN CARE FOR RASH: 1. Do not use Dial or Bar Soap for next 3-4 weeks 2. Recommend Baby Cetaphil or Aquaphor Wash during Bath/Shower 3. Wear Sunscreen that contains Zinc and Titanium Dioxide - Example of good brand for sensitive skin is Blue Lizard 4. Refrain from perfume and scented lotions, moisturizers, and/or detergents 5. Moisturize skin daily with Aquaphor, Cetaphil or Eucerin type Ointments. These can be found over the counter at your pharmacy. I did try to send a prescription for it. - Mix 4 Parts of Aquaphor with 1 Part Triamacolone (Or Over the Counter Hydrocortisone Cream) and apply to skin twice a day for the next 5 days. - After Rash has improved Moisturize with Aquaphor, Cetaphil, or Eucerin Cream/ Ointment alone. May Mix in the Triamacolone or Hydrocortisone 1% if skin is itchy. New Prescriptions for skin: 1. Triamacolone Cream (May use Hydrocortisone Over the counter if prescription not available) 2. Aquaphor Ointment (May use Over the counter Generic Aquaphor, Eucerin, Or Cetaphil if prescription not available) Vitamin B12 Deficiency: - Take B12 1000mcg Under Tongue Daily. - Will Recheck during follow-up with ALARM MECHANISM ADJUSTER or Dr. Davis Precautions: - If any Bleeding, Bruising or worsening of rash over the next weeks to month seek medical attention. Continue regular diet as tolerated. fluids are always encouraged. continue prednisone as directed by physician starting tomorrow 02/07/18. Benadryl as needed for itching. last dose was at 4 am next dose will be able to be given at 12pm if needed. Continue activities as tolerated. Continue home medications. Follow up with physicians as directed. Continue all home medications as prescribed. You have had your morning medications today 02/06/18. Call family physician with any question comments concerns worsening or returning symptoms that brought you to the ER, increased rash, pain not controlled by tylenol or motrin, fever 101.1 or higher, not tolerating a diet or fluids, shortness of breath or trouble breathing.
[2018-02-06 14:49] LABS: Albumin 3.62 g/dL (3.80-4.90); Gamma Globulin 0.63 g/dL (0.70-1.50)
[2018-02-06 15:12] LABS: Immunoglobulin A 98.2 mg/dL (60.0-350.0)
[2018-02-11] MEDS ORDERED: NON-FORMULARY DRUG (Alendronate Sodium [Fosamax] 70 MG) PO SCH (12:00)
== END 2018-02-06 11:28 ==
LOC: EC 11:26 → 6PED 13:13
PROVIDERS: ADMIT Family Medicine; ATTEND Family Medicine
DX: D69.6 Thrombocytopenia, unspecified (principal); L23.9 Allergic contact dermatitis, unspecified cause; E53.8 Deficiency of other specified B group vitamins; L40.9 Psoriasis, unspecified; K21.9 Gastro-esophageal reflux disease without esophagitis; E78.5 Hyperlipidemia, unspecified; I10 Essential (primary) hypertension; M81.0 Age-related osteoporosis without current pathological fracture; E66.9 Obesity, unspecified; Z68.28 Body mass index [BMI] 28.0-28.9, adult; R13.10 Dysphagia, unspecified; Z79.82 Long term (current) use of aspirin; Z79.83 Long term (current) use of bisphosphonates; Z79.890 Hormone replacement therapy; Z79.51 Long term (current) use of inhaled steroids; Z79.899 Other long term (current) drug therapy; Z88.5 Allergy status to narcotic agent; Z88.0 Allergy status to penicillin; Z88.2 Allergy status to sulfonamides; Z88.1 Allergy status to other antibiotic agents; Z91.041 Radiographic dye allergy status; Z87.19 Personal history of other diseases of the digestive system; Z90.710 Acquired absence of both cervix and uterus; Z90.89 Acquired absence of other organs; Z98.42 Cataract extraction status, left eye; Z98.41 Cataract extraction status, right eye; Z87.891 Personal history of nicotine dependence
CPT/HCPCS: 96361 ×2; 96376 ×3; 96374; 96375; 99284; 36415; 83921; 80053; 80048; 85652; 82607; 82728; 82746; 83540; 83550; 85025 ×2; 85384; 85610; 85730; 86140; 86431; 82784 ×3; 84165; 86038; 86334; 83883; G0378 ×3; J1200 ×3; J2930 ×3

== ENCOUNTER → 2018-08-16 | Outpatient (CLI) | payer MEDICARE ==
--- NOTE | 2018-08-16 21:05 | US ---
EXAMINATION TYPE: US carotid duplex BILAT DATE OF EXAM: 08/16/2018 COMPARISON: NONE CLINICAL HISTORY: R55 Syncope and collapse. EXAM MEASUREMENTS: RIGHT: Peak Systolic Velocity (PSV) cm/sec ----- Right CCA: 61.7 ----- Right ICA: 56.5 ----- Right ECA: 86.2 ICA/CCA ratio: 0.9 RIGHT: End Diastole cm/sec ----- Right CCA: 14.0 ----- Right ICA: 15.9 ----- Right ECA: 10.2 LEFT: Peak Systolic Velocity (PSV) cm/sec ----- Left CCA: 76.7 ----- Left ICA: 91.7 ----- Left ECA: 82.9 ICA/CCA ratio: 1.2 LEFT: End Diastole cm/sec ----- Left CCA: 16.2 ----- Left ICA: 30.1 ----- Left ECA: 8.0 VERTEBRALS (direction of flow): Right Vertebral: Antegrade Left Vertebral: Antegrade Rhythm: Normal No significant stenosis seen, no elevated velocities. IMPRESSION: 1. No significant hemodynamic stenosis as visualized. Criteria for Assigning % of Stenosis / Diameter reduction (Estimation based on the indirect measurements of the internal carotid artery velocities (ICA PSV). 1. Normal (no stenosis)=ICA PSV < 125 cm/s: ratio < 2.0: ICA EDV<40 cm/s. 2. Less than 50% stenosis=ICA PSV < 125 cm/s: ratio < 2.0: ICA EDV<40 cm/s. 3. 50 to 69% stenosis=ICA PSV of 125 to 230 cm/s: ration 2.0 ? 4.0: ICA EDV 40-100 cm/s. 4. Greater than 70% stenosis to near occlusion= ICA PSV > 230 cm/s: ratio > 4.0: ICA EDV > 100 cm/s. 5. Near occlusion= ICA PSV velocities may be low or undetectable: variable ratio and ICA EDV. 6. Total occlusion=unable to detect flow.
== END | disposition home or self-care (01) ==
LOC: RADUSWWP 15:01
PROVIDERS: ATTEND Family Medicine
DX: R55 Syncope and collapse (principal)
CPT/HCPCS: 93880

== ENCOUNTER → 2018-08-27 | Outpatient (CLI) | payer MEDICARE ==
--- NOTE | 2018-08-27 15:23 | XR ---
EXAMINATION TYPE: XR chest 2V DATE OF EXAM: 08/27/2018 COMPARISON: Prior chest x-ray 01/26/2017 HISTORY: Psoriasis TECHNIQUE: Frontal and lateral views of the chest are obtained. FINDINGS: There is no focal air space opacity, pleural effusion, or pneumothorax seen. The cardiac silhouette size is stable. There is stable elevation of the right hemidiaphragm. There may be a spin al curvature. Patient is rotated. The osseous structures are intact. IMPRESSION: No acute cardiopulmonary process.
== END | disposition home or self-care (01) ==
LOC: RADXRMAIN 11:37
PROVIDERS: ATTEND Family Medicine
DX: L40.9 Psoriasis, unspecified (principal)
CPT/HCPCS: 71046

== ENCOUNTER → 2018-10-18 | Outpatient (CLI) | payer MEDICARE ==
--- NOTE | 2018-10-18 09:01 | US ---
EXAMINATION TYPE: US abdomen complete DATE OF EXAM: 10/18/2018 COMPARISON: x ray of 01/26/2017 CLINICAL HISTORY: R10.13 Epigastric pain and LUQ pain radiating to left flank; low grade bladder CA a nd psoriasis per patient; takes meds methotrexate and folic acid for psoriasis per patient EXAM MEASUREMENTS: Liver Length: 14.7 cm Gallbladder Wall: 0.2 cm CBD: 0.1 cm Spleen: 8.4 cm Right Kidney: 9.8 x 6.0 x 3.5 cm Left Kidney: 9.5 x 4.2 x 4.4 cm Pancreas: wnl Liver: hyperechoic to right renal cortex suggests fatty liver, which limits evaluation for underlyin g hepatic masses. Gallbladder: wnl Evidence for sonographic Flores's sign: no CBD: wnl Spleen: wnl Right Kidney: No hydronephrosis or masses seen Left Kidney: No hydronephrosis or masses seen Upper IVC: wnl Abd Aorta: ectatic appearance to lumen with intimal wall thickening noted throughout, but size is wn l. The intrahepatic portion of the IVC and proximal abdominal aorta are within normal limits. There is no evidence of cholelithiasis. Common bile duct is unremarkable. The visualized portions of the ross creas are homogenous. The spleen is unremarkable. Kidneys are symmetric and free of hydronephrosis. No renal lesions are seen. IMPRESSION: 1. No hydronephrosis or nephrolithiasis. 2. Sonographic findings most commonly related to mild degree hepatic steatosis. Correlate with liver for test.
== END | disposition home or self-care (01) ==
LOC: RADUSWWP 07:59
PROVIDERS: ATTEND Family Medicine
DX: R10.13 Epigastric pain (principal)
CPT/HCPCS: 76700

== ENCOUNTER → 2018-11-08 | Outpatient (CLI) | payer MEDICARE ==
[2018-11-08 16:06] LABS: DHEA Sulfate 15.2 ug/dL (26.0-430.0)
[2018-11-08 16:07] LABS: Sex Horm Bind Glob 54.8 nmol/L (23.15-159.07)
== END | disposition home or self-care (01) ==
LOC: LABWHC1 10:05
PROVIDERS: ATTEND Dermatology Procedural Dermatology
DX: L40.0 Psoriasis vulgaris (principal); L20.89 Other atopic dermatitis; L68.0 Hirsutism
CPT/HCPCS: 36415; 82157; 82627; 84270; 84402; 84403

== ENCOUNTER → 2019-03-12 | Outpatient (CLI) | payer MEDICARE ==
--- NOTE | 2019-03-12 12:09 | CT ---
EXAMINATION TYPE: CT sinus wo con DATE OF EXAM: 03/12/2019 COMPARISON: 09/12/11 HISTORY: J32.[address] of the paranasal sinuses was performed in the axial and coronal planes. Bone and soft tissue settings are submitted. The paranasal sinuses demonstrate normal aeration and development. The paranasal sinuses are free of mucosal thickening or air fluid level. The osteal meatal units are patent bilaterally. Mild nasal septal deviation left to right. No bony destructive changes are seen within the field of view. IMPRESSION: Mild nasal septal deviation left to right.
== END | disposition home or self-care (01) ==
LOC: RADCTMAIN 11:17
PROVIDERS: ATTEND Otolaryngology
DX: J34.2 Deviated nasal septum (principal)
CPT/HCPCS: 70486

== ENCOUNTER → 2019-08-08 | Outpatient (CLI) | payer MEDICARE ==
[2019-08-08 11:38] LABS: Basophils % (A) 1 %; Eosinophils # (A) 0.1 k/uL (0-0.7); Eosinophils % (A) 2 %; HCT 39.1 % (34.0-46.0); HGB 12.8 gm/dL (11.4-16.0); Lymphocytes # (A) 0.9 k/uL (1.0-4.8); Lymphocytes % (A) 24 %; MCH 30.7 pg (25.0-35.0); MCHC 32.8 g/dL (31.0-37.0); MCV 93.7 fL (80.0-100.0); Mean Platelet Volume 8.4; Monocytes # (A) 0.2 k/uL (0-1.0); Monocytes % (A) 5 %; Neutrophils # (A) 2.6 k/uL (1.3-7.7); Neutrophils % (A) 66 %; Platelet Count 196 k/uL (150-450); RBC 4.18 m/uL (3.80-5.40); RDW 13.6 % (11.5-15.5); WBC 3.9 k/uL (3.8-10.6)
[2019-08-08 15:43] LABS: Albumin 4.5 g/dL (3.80-4.90); Albumin/Globulin Ratio 2.65 (1.60-3.17); Anion Gap 7.4 mmol/L (4.00-12.00); BUN/Creat Ratio 18.89 Ratio (12.00-20.00); Calcium 9.6 mg/dL (8.7-10.3); Carbon Dioxide 29.6 mmol/L (21.6-31.8); Chol/HDL Ratio 4.87; Globulin 1.7 g/dL (1.6-3.3); LDL Cholesterol,Calculated 151.2 mg/dL (0.0-131.0); Non-African American GFR(CKD) 59.5 (60.0-200.0); Potassium 4.2 mmol/L (3.5-5.5); Total Bilirubin 0.6 mg/dL (0.3-1.2); Total Protein 6.2 g/dL (6.2-8.2); VLDL Calculation 26.8 mg/dL (5.00-40.00)
[2019-08-08 15:51] LABS: T4, Free (Free Thyroxine) 1.5 ng/dL (0.80-1.80)
== END | disposition home or self-care (01) ==
LOC: LABWHC1 10:00
PROVIDERS: ATTEND Family Medicine
DX: E03.9 Hypothyroidism, unspecified (principal)
CPT/HCPCS: 36415; 80053; 80061; 84439; 84443; 84481; 85025

== ENCOUNTER → 2019-10-27 | Outpatient (CLI) | payer MEDICARE ==
--- NOTE | 2019-10-27 11:29 | BD ---
EXAMINATION TYPE: Axial Bone Density DATE OF EXAM: 10/27/2019 COMPARISON: DEXA bone scan 2014 CLINICAL HISTORY: Postmenopausal female Nuclear Medicine Study in the last 2 weeks: NO Barium Study in the last week: NO : NO Height: 5 FT 1 IN Weight: 134 FRAX RISK QUESTIONS: Alcohol (3 or more units per day): NO Family History (Parent hip fracture): UNSURE Glucocorticoids (More than 3mos): NO (Ex: prednisone, prednisolone, methylprednisolone, dexamethasone, and hydrocortisone). History of Fracture in Adulthood: YES Secondary Osteoporosis: 1. Type 1 Diabetes: NO 2. Hyperthyroidism: NO 3. Menopause before 45: YES 4. Malnutrition: NO 5. Chronic liver disease: NO Rheumatoid Arthritis: NO Current Tobacco Use: NO RISK FACTORS HISTORY OF: Active: YES Postmenopausal woman: TOTAL HYST AGE 42 Take estrogen and/or progesterone medications: TOOK FOR SEV YEARS AFTER HYST MEDICATIONS: Thyroid Medications: YES Which medication: SYNTHROID How Long: VERY LONG TIME UNSURE Osteoporosis Medications: YES Which medication: FOSAMAX How Long: UNSURE Additional Medications: SYNTHROID, FOSAMAX, METHOTREXATE, FOLIC ACID, CANDESARTAN CILEXETIL, HYDROCHO ROT, Additional History: POOR HISTORIAN EXAM MEASUREMENTS: Bone mineral densitometry was performed using the D[employer]Ter[employer] System. Bone mineral density as measured about the Lumbar spine is: ----- L1-L4(G/cm2): 1.013 T Score Values are as follows: ----- L2: -1.4 ----- L3: -1.1 ----- L4: -1.0 ----- L1-L4: -1.4 Bone mineral density has: INCREASED 11.6 % since study of: 2014 Bone mineral density about the R hip (g/cm2): 0.756 Bone mineral density about the L hip (g/cm2): 0.727 T Score values are as follows: -----R Neck: -2.0 -----L Neck: -2.2 -----R Total: -1.2 -----L Total: -1.4 Bone mineral density has: DECREASED -0.1 % since study of: 2014 IMPRESSION: Osteopenia (T Score between -2.5 and -1) is now present. Bone density felt improved from prior. There remains slightly increased risk of fracture and the patient may be considered for treatment. Re-Screen 2-5 years. NOTE: T-SCORE=SD OF THE YOUNG ADULT MEAN.
== END | disposition home or self-care (01) ==
LOC: RADBDWWP 10:32
PROVIDERS: ATTEND Family Medicine
DX: M85.80 Other specified disorders of bone density and structure, unspecified site (principal)
CPT/HCPCS: 77080

== ENCOUNTER → 2020-02-05 | Outpatient (CLI) | payer MEDICARE ==
--- NOTE | 2020-02-05 13:40 | US ---
EXAMINATION TYPE: US kidneys/renal and bladder DATE OF EXAM: 02/05/2020 COMPARISON: US 2019 CLINICAL HISTORY: D49.4 F/U staging bladder cancer. EXAM MEASUREMENTS: Right Kidney: 8.9 x 3.5 x 3.7 cm Left Kidney: 9.2 x 3.9 x 4.0 cm Right Kidney: no hydronephrosis or masses seen Left Kidney: no hydronephrosis or masses seen Bladder: wnl Bilateral Jets seen: no Mild nodularity anterior right mid cortex. No nephrolithiasis. Bladder distends normally. No definite wall thickening. IMPRESSION: No hydronephrosis or nephrolithiasis. CT of the abdomen is recommended to assess the anterior right m id pole cortex.
== END | disposition home or self-care (01) ==
LOC: RADUSMAIN 12:51
PROVIDERS: ATTEND Urology
DX: C67.9 Malignant neoplasm of bladder, unspecified (principal)
CPT/HCPCS: 76770

== ENCOUNTER → 2020-02-24 | Outpatient (CLI) | payer MEDICARE | END | disposition home or self-care (01) | LOC: RADCTMAIN 14:25 | PROVIDERS: ATTEND Urology | DX: Z53.9 Procedure and treatment not carried out, unspecified reason (principal) ==

== ENCOUNTER → 2020-03-09 | Outpatient (CLI) | payer MEDICARE ==
--- NOTE | 2020-03-09 18:00 | CT ---
EXAMINATION TYPE: CT abdomen wo con DATE OF EXAM: 03/09/2020 COMPARISON: Ultrasound kidneys 02/05/2020 HISTORY: renal mass CT DLP: 167.6 mGycm Automated exposure control for dose reduction was used. TECHNIQUE: Helical acquisition of images was performed from the lung bases through the top of iliac crest to include entire abdomen. CONTRAST: Performed with Oral Contrast and without IV contrast. FINDINGS: LUNG BASES: Calcified granuloma of the right lower lobe. No pericardial or pleural effusion. LIVER: Normal attenuation and size. Too small to characterize hypodense lesion of the left lobe (3:19 ). BILIARY SYSTEM: Cholelithiasis within the gallbladder neck. The gallbladder is contracted. No urinary ductal dilatation. PANCREAS: No peripancreatic inflammation. SPLEEN: Not enlarged. ADRENALS: Normal. KIDNEYS: No hydronephrosis or urolithiasis. There is normal unenhanced contour of the bilateral kidne ys. BOWEL: No obstruction or thickening. Colonic diverticulosis. No acute diverticulitis of the abdomen. PERITONEUM: No pneumoperitoneum. No free fluid. LYMPH NODES: No lymphadenopathy. VASCULATURE: No abdominal aortic aneurysm. MUSCULOSKELETAL: Degenerative changes of the spine. IMPRESSION: 1. Evaluation for solid renal masses is limited without the use of IV contrast. If patient is unable to receive IV contrast, consider repeat renal ultrasound or MRI of the abdomen to further evaluate qu estioned abnormality of the right kidney on 02/05/2020 renal ultrasound comparison. 2. No hydronephrosis or urolithiasis. 3. Cholelithiasis.
== END | disposition home or self-care (01) ==
LOC: RADCTMAIN 13:31
PROVIDERS: ATTEND Urology
DX: K80.20 Calculus of gallbladder without cholecystitis without obstruction (principal); Z88.0 Allergy status to penicillin; Z88.1 Allergy status to other antibiotic agents; Z88.5 Allergy status to narcotic agent; Z91.041 Radiographic dye allergy status
CPT/HCPCS: 74150

== ENCOUNTER → 2021-03-01 | Outpatient (CLI) | payer MEDICARE | END | disposition home or self-care (01) | LOC: LABWHC1 09:52 | PROVIDERS: ATTEND Family Medicine | DX: Z53.9 Procedure and treatment not carried out, unspecified reason (principal) ==

== ENCOUNTER → 2021-08-16 | Outpatient (CLI) | payer MEDICARE ==
--- NOTE | 2021-08-16 15:57 | US ---
EXAMINATION TYPE: US kidneys/renal and bladder DATE OF EXAM: 08/16/2021 COMPARISON: NONE CLINICAL HISTORY: 86-year-old female C67.2 CANCER OF BLADDER WALL. TECHNIQUE: Multiple sonographic images of the kidneys and bladder are obtained. FINDINGS: EXAM MEASUREMENTS: Right Kidney: 9.2 x 3.2 x 3.3 cm Left Kidney: 9.3 x 3.4 x 3.0 cm Right Kidney: No hydronephrosis or masses seen Left Kidney: No hydronephrosis or masses seen Bladder: Anechoic Bilateral Jets seen: No IMPRESSION: No hydronephrosis. No filling defect identified within the lumen of the bladder by ultrasound.
== END | disposition home or self-care (01) ==
LOC: RADUSWWP 12:39
PROVIDERS: ATTEND Urology
DX: C67.2 Malignant neoplasm of lateral wall of bladder (principal)
CPT/HCPCS: 76770

== ENCOUNTER → 2021-09-16 | Outpatient (CLI) | payer MEDICARE ==
--- NOTE | 2021-09-16 11:43 | BD ---
EXAMINATION TYPE: Axial Bone Density DATE OF EXAM: 09/16/2021 COMPARISON: NONE CLINICAL HISTORY: 86 years year old Female. ICD-10 CODE: Z78.0 ASYMPTOMATIC MENOPAUSAL Height: 61 Weight: 124.2 FRAX RISK QUESTIONS: Alcohol (3 or more units per day): NO Family History (Parent hip fracture): NO Glucocorticoids (More than 3mos): NO History of Fracture in Adulthood: YES Secondary Osteoporosis: 1. Type 1 Diabetes: NO 2. Hyperthyroidism: NO 3. Menopause before 45: NO 4. Malnutrition: NO 5. Chronic liver disease: NO Rheumatoid Arthritis: NO Current Tobacco Use: NO RISK FACTORS HISTORY OF: Hip Fracture (Right/Left): NO Spine Fracture: NO History of Wrist Fracture: YES LEFT When: AGE 62 Surgery to Spine/Hip(right/left)/Wrist (right/left): NO Family History of Osteoporosis: NO Active: NO Diet low in dairy products/other sources of calcium: YES Postmenopausal woman: YES If Premenopausal, do you have irregular periods: NO Take estrogen and/or progesterone medications: NO Lost more than 2 inches in height since high school: NO Frequent falls: NO Poor Health: NO Hyperparathyroidism: NO Adrenal Insufficiency: NO MEDICATIONS: Prednisone or other steroids: NO Thyroid Medications: SYNTHROID, How Lon YEARS Osteoporosis Medications: FOSAMAX How Lon YEARS Additional Medications: CANDESARTAN, FOLIC ACID Additional History: EXAM MEASUREMENTS: Bone mineral densitometry was performed using the [employer] System. Bone mineral density as measured about the Lumbar spine is: ----- L1-L4(G/cm2): 0.969 T Score Values are as follows: ----- L1: -2.6 ----- L2: -2.3 ----- L3: -1.2 ----- L4: -1.4 ----- L1-L4: -1.6 Bone mineral density has: DECREASED 5.0% since study of: 10/27/2019 Bone mineral density about the R hip (g/cm2): 0.774 Bone mineral density about the L hip (g/cm2): 0.720 T Score values are as follows: -----R Neck: -1.9 -----L Neck: -2.3 -----R Total: -1.4 -----L Total: -1.6 Bone mineral density has: DECREASED 4.0% since study of: 10/27/2019 FRAX%s: The graph provided illustrates a 24.0% chance for a major osteoporotic fx and a 7.7% chance f or the hips probability for fx in 10 years time. IMPRESSION: Osteopenia NOTE: T-SCORE=SD OF THE YOUNG ADULT MEAN.
== END | disposition home or self-care (01) ==
LOC: RADBDWWP 09:43
PROVIDERS: ATTEND Family Medicine
DX: M85.89 Other specified disorders of bone density and structure, multiple sites (principal); Z78.0 Asymptomatic menopausal state
CPT/HCPCS: 77080

== ENCOUNTER → 2022-10-20 | Outpatient (CLI) | payer MEDICARE ==
--- NOTE | 2022-10-20 15:36 | US ---
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 Posterior wall appears normal. No definite wall thickening or urinary bladder masses to correlate with the patient's bladder wall cancer is identified. IMPRESSION: 1. Normal bilateral kidneys. 2. 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
== END | disposition home or self-care (01) ==
LOC: RADUSWWP 14:40
PROVIDERS: ATTEND Urology
DX: C67.9 Malignant neoplasm of bladder, unspecified (principal)
CPT/HCPCS: 76770

== ENCOUNTER → 2022-12-08 | Outpatient (CLI) | payer MEDICARE ==
[2022-12-08 16:08] LABS: Basophils # (A) 0.03 X 10*3/uL (0.00-0.10); Basophils % (A) 0.6 %; Eosinophils # (A) 0.09 X 10*3/uL (0.04-0.35); Eosinophils % (A) 1.7 %; HCT 40.4 % (37.2-46.3); HGB 13.3 d/dL (12.0-15.0); Lymphocytes # (A) 1.06 X 10*3/uL (0.90-5.00); MCH 31.4 pg (27.0-32.0); MCHC 32.9 d/dL (32.0-37.0); MCV 95.5 FL (80.0-97.0); Mean Platelet Volume 11.9 FL (9.5-12.2); Monocytes # (A) 0.38 X 10*3/uL (0.20-1.00); Monocytes % (A) 7.2 %; NRBC Per 100 WBC 0 X 10*3/uL (0.00-0.01); Neutrophils # (A) 3.73 X 10*3/uL (1.80-7.70); Neutrophils % (A) 70.1 %; Platelet Count 206 X 10*3/uL (140-440); RBC 4.23 X 10*6/uL (4.10-5.20); RDW 13.4 % (11.5-14.5); WBC 5.31 X 10*3/uL (4.50-10.00)
[2022-12-08 17:39] LABS: BUN/Creat Ratio 19.31 Ratio (12.00-20.00); Blood Urea Nitrogen 25.1 mg/dL (9.0-27.0); Glucose 104 mg/dL (70-110)
[2022-12-08 17:40] LABS: ALT 19 U/L (8-44); AST 25 U/L (13-35); Albumin 4.5 d/dL (3.8-4.9); Albumin/Globulin Ratio 2.37 Ratio (1.60-3.17); Alkaline Phosphatase 64 U/L (41-126); Calcium 10.6 mg/dL (8.7-10.3); Chloride 106 mmol/L (96-109); Globulin 1.9 d/dL (1.6-3.3); Potassium 4.4 mmol/L (3.5-5.5); Sodium 141 mmol/L (135-145); Total Bilirubin 0.3 mg/dL (0.3-1.2); Total Protein 6.4 d/dL (6.2-8.2)
== END | disposition home or self-care (01) ==
LOC: LABWHC1 10:38
PROVIDERS: ATTEND Physician Assistant Medical
DX: L40.0 Psoriasis vulgaris (principal)
CPT/HCPCS: 36415; 80053; 85025

== ENCOUNTER → 2023-10-05 | Outpatient (CLI) | payer MEDICARE ==
--- NOTE | 2023-10-07 18:00 | US ---
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 No nephrolithiasis is seen. Corticome dullary differentiation is maintained bilaterally. No masses are identified. The visualized urinary bladder is anechoic without definitive bladder wall mass identified. IMPRESSION: 1. No hydronephrosis or nephrolithiasis. 2. Patient's reported urinary bladder neoplasm is not identified by ultrasound.
== END | disposition home or self-care (01) ==
LOC: RADUSWWP 15:08
PROVIDERS: ATTEND Urology
DX: C67.2 Malignant neoplasm of lateral wall of bladder (principal)
CPT/HCPCS: 76770

== ENCOUNTER 2024-01-12 16:24 | Inpatient (IN) | payer MEDICARE ==
--- NOTE | 2024-01-12 16:50 | ED ---
General Adult HPI - General Chief complaint: Nausea/Vomiting/Diarrhea Stated complaint: vomiting Time Seen by Provider: 01/12/24 16:38 Source: EMS Mode of arrival: EMS - History of Present Illness Initial comments: 88-year-old female brought in by EMS with chief complaint of nausea and vomiting. Her is with her at bedside, he supplements the history as she is in the early stages of dementia. He reports that for a few weeks she has planing of an upset stomach. Today they went to go to dinner and while he was doing her her supplements for the evening she was unable to stand up on her own. She then started vomiting. Patient is having lower abdominal pain. She denies any chest pain or difficulty breathing. No fevers. No cough, congestion, sore throat. - Related Data Home Medications Medication Instructions Recorded Confirmed Levothyroxine Sodium [Synthroid] 50 mcg PO AC-BRKFST 02/15/15 01/12/24 Alendronate Sodium [Fosamax] 70 mg PO ROBLEDO 12/27/16 01/12/24 Candesartan Cilexetil 32 mg PO DAILY 01/12/24 01/12/24 Donepezil [Aricept] 10 mg PO DAILY 01/12/24 01/12/24 Folic Acid 1 mg PO SUMOTUTHFRSA 01/12/24 01/12/24 Rosuvastatin [Crestor] 10 mg PO DAILY 01/12/24 01/12/24 hydroCHLOROthiazide [Hydrodiuril] 12.5 mg PO DAILY 01/12/24 01/12/24 metHOTREXate sodium [Methotrexate] 10 mg PO WE 01/12/24 01/12/24 Allergies Allergy/AdvReac Type Severity Reaction Status Date / Time Iodinated Contrast Media Allergy head to Verified 01/12/24 18:30 [Iodinated Contrast- Oral toe rash and IV Dye] Penicillins Allergy Rash/Hives Verified 01/12/24 18:30 Sulfa (Sulfonamide Allergy Unknown Verified 01/12/24 18:30 Antibiotics) Childhood sulfamethoxazole Allergy Unknown Verified 01/12/24 18:30 [From Bactrim] Childhood trimethoprim [From Bactrim] Allergy Unknown Verified 01/12/24 18:30 Childhood codeine AdvReac Nausea & Verified 01/12/24 18:30 Vomiting & Diarrhea Review of Systems ROS Statement: Those systems with pertinent positive or pertinent negative responses have been documented in the HPI. ROS Other: All systems not noted in ROS Statement are negative. Past Medical History Past Medical History: GERD/Reflux, Hyperlipidemia, Hypertension, Skin Disorder Additional Past Medical History / Comment(s): currently rash after heart cath on 01-03-17,hx psoriasis, osteoporosis, sinus problems, states difficlulty swallowing History of Any Multi-Drug Resistant Organisms: None Reported Past Surgical History: Appendectomy, Breast Surgery, Heart Catheterization, Hysterectomy, Tonsillectomy Additional Past Surgical History / Comment(s): cystocele, rectocele repair, arnold cataracts, right shoulder. rt breast benign lumpectomy Past Anesthesia/Blood Transfusion Reactions: No Reported Reaction Additional Past Anesthesia/Blood Transfusion Reaction / Comment(s): sensitive gag reflex Past Psychological History: No Psychological Hx Reported Past Alcohol Use History: None Reported Past Drug Use History: None Reported - Past Family History Mother Family Medical History: No Reported History Father History Unknown: Yes General Exam General appearance: alert, lethargic Head exam: Present: atraumatic, normocephalic, normal inspection Eye exam: Present: normal appearance Neck exam: Present: normal inspection. Absent: meningismus Respiratory exam: Present: normal lung sounds bilaterally. Absent: respiratory distress, wheezes, rales, rhonchi, stridor Cardiovascular Exam: Present: normal rhythm, bradycardia, normal heart sounds. Absent: systolic murmur, diastolic murmur, rubs, gallop, clicks GI/Abdominal exam: Present: soft, tenderness (Lower abdomen). Absent: distended, guarding, rebound, rigid Neurological exam: Present: alert, altered (Dementia) Skin exam: Present: warm, dry Course Vital Signs 01/12/24 01/12/24 16:31 21:15 Temperature 97.7 F 97.8 F Pulse Rate 50 L 57 L Respiratory 17 17 Rate Blood Pressure 97/53 135/74 O2 Sat by Pulse 100 98 Oximetry Medical Decision Making - Medical Decision Making Was pt. sent in by a medical professional or institution (, PA, CAT SITTER, urgent care, hospital, or intermediate...) When possible be specific @ -No Did you speak to anyone other than the patient for history (EMS, parent, family, police, friend...)? What history was obtained from this source @ -History is mainly provided by patient's given her dementia Did you review nursing and triage notes (agree or disagree)? Why? @ -I reviewed and agree with nursing and triage notes Were old charts reviewed (outside hosp., previous admission, EMS record, old EKG, old radiological studies, urgent care reports/EKG's, intermediate records)? Report findings @ -No old charts were reviewed Differential Diagnosis (chest pain, altered mental status, abdominal pain women, abdominal pain men, vaginal bleeding, weakness, fever, dyspnea, syncope, headache, dizziness, GI bleed, back pain, seizure, CVA, palpatations, mental h ealth, musculoskeletal)? @ -MDM Differential Abdominal Pain Women: Appendicitis, Cholecystitis, diverticulosis, ischemic bowel, pancreatitis, hepatitis, UTI, gastroenteritis, AAA, incarcerated hernia, bowel obstruction, constipation, inflammatory bowel, hepatitis, peptic ulcer disease, splenic inf arction, perforated viscus, vulvitis, ovarian torsion, PID, kidney stone, placenta abruption... This is not meant to be an all-inclusive list EKG interpreted by me (3pts min.). @ -As above X-rays interpreted by me (1pt min.). @ -None done CT interpreted by me (1pt min.). @ -CT shows extensive colonic diverticulosis, with findings in the proximal sigmoid suggesting possible mild acute diverticulitis U/S interpreted by me (1pt. min.). @ -None done What testing was considered but not performed or refused? (CT, X-rays, U/S, labs)? Why? @ -None What meds were considered but not given or refused? Why? @ -None Did you discuss the management of the patient with other professionals (professionals i.e. , PA, CAT SITTER, lab, RT, psych nurse, social service coordinator, marine services technician, teacher, quality officer, business case analyst)? Give summary @ -Spoke with the [facility] provider on-call who accepts admission Was smoking cessation discussed for >3mins.? @ -No Was critical care preformed (if so, how long)? @ -No Were there social determinants of health that impacted care today? How? (Homelessness, low income, unemployed, alcoholism, drug addiction, transportation, low edu. Level, literacy, decrease access to med. care, long-term, rehab)? @ -No Was there de-escalation of care discussed even if they declined (Discuss DNR or withdrawal of care, Hospice)? DNR status @ -No What co-morbidities impacted this encounter? (DM, HTN, Smoking, COPD, CAD, Cancer, CVA, ARF, Chemo, Hep., AIDS, mental health diagnosis, sleep apnea, mo rbid obesity)? @ -None Was patient admitted / discharged? Hospital course, mention meds given and r oute, prescriptions, significant lab abnormalities, going to OR and other pertinent info. @ -88-year-old female presenting with chief complaint of nausea vomiting and generalized weakness. She is indicating she is having lower abdominal pain as well. On exam there is lower abdominal tenderness. Lab work shows no leukocytosis or anemia. BUN 24 creatinine 1.40, no recent value available for comparison. Lactic acid is 2.8, patient is receiving IV hydration. She received 1 L fluid bolus and started on maintenance rate of 75 mL/h. Other for diverticulitis. Patient is treated with Bentyl and Rocephin. UA later comes back with large leukocytes and 91 WBCs. Current antibiotics will cover for UTI. Urine and blood cultures were taken prior to antibiotics. Patient will be admitted. Patient and her are agreeable with this plan. I discussed this case with my attending Dr. Mai Undiagnosed new problem with uncertain prognosis? @ -No Drug Therapy requiring intensive monitoring for toxicity (Heparin, Nitro, Insulin, Cardizem)? @ -No Were any procedures done? @ -No Diagnosis/symptom? @ -Diverticulitis, UTI Acute, or Chronic, or Acute on Chronic? @ -Acute Uncomplicated (without systemic symptoms) or Complicated (systemic symptoms)? @ -Complicated Side effects of treatment? @ -No Exacerbation, Progression, or Severe Exacerbation? @ -No Poses a threat to life or bodily function? How? (Chest pain, USA, CT, pneumonia, PE, COPD, DKA, ARF, appy, cholecystitis, CVA, Diverticulitis, Homicidal, Suicidal, threat to staff... and all critical care pts) @ -Yes - Lab Data Result diagrams: 01/12/24 17:15 01/12/24 17:15 Lab Results 01/12/24 01/12/24 01/12/24 Range/Units 17:15 17:15 17:15 WBC 8.4 (3.8-10.6) k/uL RBC 4.31 (3.80-5.40) m/uL Hgb 13.4 (11.4-16.0) gm/dL Hct 38.8 (34.0-46.0) % MCV 90.1 (80.0-100.0) fL MCH 31.2 (25.0-35.0) pg MCHC 34.6 (31.0-37.0) g/dL RDW 13.9 (11.5-15.5) % Plt Count 237 (150-450) k/uL MPV 8.5 Neutrophils % 79 % Lymphocytes % 15 % Monocytes % 3 % Eosinophils % 1 % Basophils % 0 % Neutrophils # 6.7 (1.3-7.7) k/uL Lymphocytes # 1.3 (1.0-4.8) k/uL Monocytes # 0.3 (0-1.0) k/uL Eosinophils # 0.1 (0-0.7) k/uL Basophils # 0.0 (0-0.2) k/uL Sodium 137 (137-145) mmol/L Potassium 3.6 (3.5-5.1) mmol/L Chloride 100 (98-107) mmol/L Carbon Dioxide 23 (22-30) mmol/L Anion Gap 14 mmol/L BUN 24 H (7-17) mg/dL Creatinine 1.40 H (0.52-1.04) mg/dL Est GFR (CKD-EPI)AfAm 39 (>60 ml/min/1.73 sqM) Est GFR (CKD-EPI)NonAf 34 (>60 ml/min/1.73 sqM) Glucose 113 H (74-99) mg/dL Lactic Ac Sepsis Rflx Plasma Lactic Acid Bryan 2.8 H* (0.7-2.0) mmol/L Calcium 10.3 H (8.4-10.2) mg/dL Total Bilirubin 0.9 (0.2-1.3) mg/dL AST 54 H (14-36) U/L ALT 54 H (4-34) U/L Alkaline Phosphatase 78 (38-126) U/L Troponin I (0.000-0.034) ng/mL Total Protein 6.3 (6.3-8.2) g/dL Albumin 4.2 (3.5-5.0) g/dL Amylase 66 (30-110) U/L Lipase 300 (23-300) U/L Urine Color Urine Appearance (Clear) Urine pH (5.0-8.0) Ur Specific [place] (1.001-1.035) Urine Protein (Negative) Urine Glucose (UA) (Negative) Urine Ketones (Negative) Urine Blood (Negative) Urine Nitrite (Negative) Urine Bilirubin (Negative) Urine Urobilinogen (<2.0) mg/dL Ur Leukocyte Esterase (Negative) Urine RBC (0-5) /hpf Urine WBC (0-5) /hpf Ur Squamous Epith Cells (0-4) /hpf Urine Bacteria (None) /hpf Hyaline Casts (0-2) /lpf Urine Mucus (None) /hpf 01/12/24 01/12/24 01/12/24 Range/Units 17:15 17:50 20:25 WBC (3.8-10.6) k/uL RBC (3.80-5.40) m/uL Hgb (11.4-16.0) gm/dL Hct (34.0-46.0) % MCV (80.0-100.0) fL MCH (25.0-35.0) pg MCHC (31.0-37.0) g/dL RDW (11.5-15.5) % Plt Count (150-450) k/uL MPV Neutrophils % % Lymphocytes % % Monocytes % % Eosinophils % % Basophils % % Neutrophils # (1.3-7.7) k/uL Lymphocytes # (1.0-4.8) k/uL Monocytes # (0-1.0) k/uL Eosinophils # (0-0.7) k/uL Basophils # (0-0.2) k/uL Sodium (137-145) mmol/L Potassium (3.5-5.1) mmol/L Chloride (98-107) mmol/L Carbon Dioxide (22-30) mmol/L Anion Gap mmol/L BUN (7-17) mg/dL Creatinine (0.52-1.04) mg/dL Est GFR (CKD-EPI)AfAm (>60 ml/min/1.73 sqM) Est GFR (CKD-EPI)NonAf (>60 ml/min/1.73 sqM) Glucose (74-99) mg/dL Lactic Ac Sepsis Rflx Y Plasma Lactic Acid Bryan 1.0 (0.7-2.0) mmol/L Calcium (8.4-10.2) mg/dL Total Bilirubin (0.2-1.3) mg/dL AST (14-36) U/L ALT (4-34) U/L Alkaline Phosphatase (38-126) U/L Troponin I <0.012 (0.000-0.034) ng/mL Total Protein (6.3-8.2) g/dL Albumin (3.5-5.0) g/dL Amylase (30-110) U/L Lipase (23-300) U/L Urine Color Urine Appearance (Clear) Urine pH (5.0-8.0) Ur Specific [place] (1.001-1.035) Urine Protein (Negative) Urine Glucose (UA) (Negative) Urine Ketones (Negative) Urine Blood (Negative) Urine Nitrite (Negative) Urine Bilirubin (Negative) Urine Urobilinogen (<2.0) mg/dL Ur Leukocyte Esterase (Negative) Urine RBC (0-5) /hpf Urine WBC (0-5) /hpf Ur Squamous Epith Cells (0-4) /hpf Urine Bacteria (None) /hpf Hyaline Casts (0-2) /lpf Urine Mucus (None) /hpf 01/12/24 Range/Units 20:40 WBC (3.8-10.6) k/uL RBC (3.80-5.40) m/uL Hgb (11.4-16.0) gm/dL Hct (34.0-46.0) % MCV (80.0-100.0) fL MCH (25.0-35.0) pg MCHC (31.0-37.0) g/dL RDW (11.5-15.5) % Plt Count (150-450) k/uL MPV Neutrophils % % Lymphocytes % % Monocytes % % Eosinophils % % Basophils % % Neutrophils # (1.3-7.7) k/uL Lymphocytes # (1.0-4.8) k/uL Monocytes # (0-1.0) k/uL Eosinophils # (0-0.7) k/uL Basophils # (0-0.2) k/uL Sodium (137-145) mmol/L Potassium (3.5-5.1) mmol/L Chloride (98-107) mmol/L Carbon Dioxide (22-30) mmol/L Anion Gap mmol/L BUN (7-17) mg/dL Creatinine (0.52-1.04) mg/dL Est GFR (CKD-EPI)AfAm (>60 ml/min/1.73 sqM) Est GFR (CKD-EPI)NonAf (>60 ml/min/1.73 sqM) Glucose (74-99) mg/dL Lactic Ac Sepsis Rflx Plasma Lactic Acid Bryan (0.7-2.0) mmol/L Calcium (8.4-10.2) mg/dL Total Bilirubin (0.2-1.3) mg/dL AST (14-36) U/L ALT (4-34) U/L Alkaline Phosphatase (38-126) U/L Troponin I (0.000-0.034) ng/mL Total Protein (6.3-8.2) g/dL Albumin (3.5-5.0) g/dL Amylase (30-110) U/L Lipase (23-300) U/L Urine Color Yellow Urine Appearance Cloudy H (Clear) Urine pH 6.5 (5.0-8.0) Ur Specific [place] 1.021 (1.001-1.035) Urine Protein 1+ H (Negative) Urine Glucose (UA) Negative (Negative) Urine Ketones 1+ H (Negative) Urine Blood Negative (Negative) Urine Nitrite Negative (Negative) Urine Bilirubin Negative (Negative) Urine Urobilinogen 2.0 (<2.0) mg/dL Ur Leukocyte Esterase Large H (Negative) Urine RBC 2 (0-5) /hpf Urine WBC 91 H (0-5) /hpf Ur Squamous Epith Cells 2 (0-4) /hpf Urine Bacteria Occasional H (None) /hpf Hyaline Casts 175 H (0-2) /lpf Urine Mucus Few H (None) /hpf Disposition Clinical Impression: Diverticulitis Disposition: ADMITTED IP TO THIS HOSP Condition: Fair Time of Disposition: 21:10
[2024-01-12] MEDS: diphenhydrAMINE 50 MG/ML 1 ML VIAL IVP STA (17:12)
[2024-01-12] MEDS: SODIUM CHLORIDE 0.9% 1,000 ML IV STA (17:12)
[2024-01-12] MEDS: FAMOTIDINE 20 MG/2 ML VIAL IV STA (17:12)
[2024-01-12] MEDS: METOCLOPRAMIDE 5 MG/ML 2 ML VIAL IVP STA (17:12)
[2024-01-12] MEDS: methylPREDNISolone SOD SUCCI 125 MG/2 ML VIAL IV STA (17:12)
[2024-01-12 17:32] LABS: Basophils % (A) 0 %; Eosinophils # (A) 0.1 k/uL (0-0.7); Eosinophils % (A) 1 %; HCT 38.8 % (34.0-46.0); HGB 13.4 gm/dL (11.4-16.0); Lymphocytes # (A) 1.3 k/uL (1.0-4.8); Lymphocytes % (A) 15 %; MCH 31.2 pg (25.0-35.0); MCHC 34.6 g/dL (31.0-37.0); MCV 90.1 fL (80.0-100.0); Mean Platelet Volume 8.5; Monocytes # (A) 0.3 k/uL (0-1.0); Monocytes % (A) 3 %; Neutrophils # (A) 6.7 k/uL (1.3-7.7); Neutrophils % (A) 79 %; Platelet Count 237 k/uL (150-450); RBC 4.31 m/uL (3.80-5.40); RDW 13.9 % (11.5-15.5); WBC 8.4 k/uL (3.8-10.6)
[2024-01-12 17:42] LABS: ALT 54 U/L (4-34); AST 54 U/L (14-36); African American GFR (CKD) 39 (>60 ml/min/1.73 sqM); Albumin 4.2 g/dL (3.5-5.0); Alkaline Phosphatase 78 U/L (38-126); Amylase 66 U/L (30-110); Anion Gap 14 mmol/L; Blood Urea Nitrogen 24 mg/dL (7-17); Calcium 10.3 mg/dL (8.4-10.2); Carbon Dioxide 23 mmol/L (22-30); Chloride 100 mmol/L (98-107); Glucose 113 mg/dL (74-99); Lipase 300 U/L (23-300); Non-African American GFR(CKD) 34 (>60 ml/min/1.73 sqM); Potassium 3.6 mmol/L (3.5-5.1); Sodium 137 mmol/L (137-145); Total Bilirubin 0.9 mg/dL (0.2-1.3); Total Protein 6.3 g/dL (6.3-8.2)
--- NOTE | 2024-01-12 18:43 | CT ---
EXAMINATION TYPE: CT abdomen pelvis wo con CT DLP: 386.1 mGycm, Automated exposure control for dose reduction was used. DATE OF EXAM: 01/12/2024 6:22 PM COMPARISON: None. CLINICAL INDICATION:Female, 88 years old with history of Abdominal pain; abdominal pain, nausea, vomi ting TECHNIQUE: Axial CT of the abdomen and pelvis. Sagittal and coronal reformats were created on a [employer] workstation. Contrast used: mL of , (none if empty) Oral contrast used: without Oral Contrast (none if empty) FINDINGS: LOWER CHEST: Lung bases show mild subsegmental atelectasis and/or scarring. Heart size upper normal. Mild to moderate calcification aorta. ABDOMEN LIVER: Unremarkable GALLBLADDER AND BILE DUCTS: Cholelithiasis without evidence of cholecystitis. Nondilated biliary tree . PANCREAS: Mild fatty infiltration without acute finding SPLEEN: Unremarkable. ADRENAL GLANDS: Mildly thickened, may be seen with hyperplasia.. KIDNEYS AND URETERS: No evidence of renal calculi or contour deformity. No hydronephrosis. PELVIS BLADDER: Incompletely distended but grossly unremarkable. REPRODUCTIVE: Organs not seen likely removed. ABDOMEN & PELVIS STOMACH AND BOWEL: Stomach and small bowel are nondistended, there is no evidence of obstruction. Unr emarkable appendix. Mild to moderate stool throughout the colon. There are numerous diverticula seen throughout the colon. Question mild pericolonic inflammatory changes in the proximal sigmoid region, may be seen with mild acute diverticulitis or focal colitis. No extraluminal gas or fluid collection. PERITONEUM/RETROPERITONEUM: No evidence of pneumoperitoneum or free fluid. VASCULATURE: Moderate atherosclerotic calcifications are present throughout the abdominal aorta and i ts branches. No evidence of aortic aneurysm. LYMPH NODES: No enlarged nodes by CT size criteria. SOFT TISSUE/ABDOMINAL WALL: No acute abnormality. Small fat-containing umbilical hernia. MUSCULOSKELETAL: Osteopenia and mild/moderate degenerative changes of the spine and hips. Mild S-sha ped scoliotic curve. IMPRESSION: Extensive colonic diverticulosis, with findings in the proximal sigmoid suggesting possible mild acut e diverticulitis.
[2024-01-12 21:02] LABS: Appearance,Urine Cloudy (Clear); Bacteria,Urine Occasional /hpf; Bilirubin,Urine Negative (Negative); Blood,Urine Negative (Negative); Color,Urine Yellow; Glucose,Urine (UA) Negative (Negative); Hyaline Casts,Urine 175 /lpf (0-2); Ketones,Urine 1+ (Negative); Leukocyte Esterase,Urine Large (Negative); Mucus,Urine Few /hpf; Nitrite,Urine Negative (Negative); PH, Urine 6.5 (5.0-8.0); Protein,Urine 1+ (Negative); RBC,Urine 2 /hpf (0-5); Specific Gravity,Urine 1.021 (1.001-1.035); Squamous Epithelial Cell,Urine 2 /hpf (0-4); WBC,Urine 91 /hpf (0-5)
[2024-01-12] MEDS ORDERED: NALOXONE 0.4 MG/ML 1 ML VIAL IV PRN (21:06)
[2024-01-12] MEDS: SODIUM CHLORIDE 0.9% 1,000 ML IV SCH (21:35)
[2024-01-12] MEDS: cefTRIAXone IN SWFI 1,000 MG/10 ML SYRINGE IVP STA (21:35)
[2024-01-12] MEDS: metroNIDAZOLE-NS PMX 500 MG in SALINE 1 100ML.BAG IVPB STA (21:37)
[2024-01-13] MEDS ORDERED: LOSARTAN 50 MG TAB PO SCH (10:00)
[2024-01-13] MEDS: FOLIC ACID 1 MG TAB PO SCH (12:55)
[2024-01-13] MEDS: HEPARIN SODIUM,PORCINE 5,000 UNIT/ML 1 ML VIAL SQ SCH (12:55)
[2024-01-13] MEDS: LEVOTHYROXINE 50 MCG TAB PO SCH (12:55)
--- NOTE | 2024-01-13 13:47 | P.HPIM ---
History of Present Illness H&P Date: 01/13/24 History of present illness: 88-year-old female with past medical history significant for early dementia, hypertension, hyperlipidemia psoriasis, GERD who was brought to the hospital for nausea and vomiting. Patient has poor historian, has early stages of dementia. Patient's reported that patient had upset stomach recently, they went outside to have a dinner. Later in the evening patient was unable to stand up on her own, patient started to have nausea and vomiting and lower abdominal p ain. No fever or chills. In the ED patient was afebrile, heart rate 56, respiratory rate 18, blood pressure 132/78, saturating 98% on room air. WBCs 8.4, hemoglobin 13.4 platelet 237. Sodium 137 potassium 3.6 chloride 100 CO2 23 BUN 24, creatinine 1.40, lactate was 2.8 later on came down to 1.0. AST ALT 54 normal bilirubin and alkaline phosphatase. Troponin was negative. UA was positive for large leukocyte esterase, 91 WBCs, occasional bacteria, hyaline cast. CT abdomen pelvis concerning for mild acute diverticulitis. REVIEW OF SYSTEMS: CONSTITUTIONAL: No fever, no malaise, no fatigue. HEENT: No recent visual problems or hearing problems. Denied any sore throat. CARDIOVASCULAR: No chest pain, orthopnea, PND, no palpitations, no syncope. PULMONARY: No shortness of breath, no cough, no hemoptysis. GASTROINTESTINAL: Complains of nausea, vomiting, lower abdominal pain. NEUROLOGICAL: No headaches, no weakness, no numbness. HEMATOLOGICAL: Denies any bleeding or petechiae. GENITOURINARY: Denies any burning micturition, frequency, or urgency. MUSCULOSKELETAL/RHEUMATOLOGICAL: Denies any joint pain, swelling, or any muscle pain. ENDOCRINE: Denies any polyuria or polydipsia. The rest of the 14-point review of systems is negative. PHYSICAL EXAMINATION: GENERAL: The patient is A&O x3, NAD HEENT: EOMI, Sclerae anicteric, Moist Mucous membranes Neck: Supple, Non tender, No JVD PULMONARY: Equal breath souds B/L, No wheezing, No crackles. CARDIOVASCULAR: S1, S2 present. No murmurs, rubs, or gallops. ABDOMEN: Soft, left lower quadrant tender, nondistended, normoactive bowel sounds. No guarding or rebound tenderness. MUSCULOSKELETAL: No edema, No cyanosis. No clubbing. Normal ROM. Intact peripheral pulses. EXTREMITIES: No cyanosis, clubbing, or pedal edema. NEUROLOGICAL: CN 2-12 grossly intact. No FND Assessment and plan: Acute sigmoid diverticulitis: Presented with nausea vomiting, lower abdominal pain. CT abdomen pelvis showed mild acute sigmoid diverticulitis. Continue Rocephin and Flagyl Blood cultures ID consult UTI: Rocephin Urine culture NAILA: Secondary to dehydration IV fluids Avoid nephrotoxin Monitor renal function Hypertension: Hold ARB due to NAILA Monitor renal function Hyperlipidemia: Holding statin due to elevated LFTs Monitor CMP DVT prophylaxis Subcutaneous heparin Monitor vital signs and labs Continue telemetry monitoring Labs and medication were reviewed. Continue same treatment. Resume home medication. Further recommendations as per clinical course of the patient Dictation was produced using [employer] dictation software. please excuse any grammatical, word or spelling errors. Past Medical History Past Medical History: GERD/Reflux, Hyperlipidemia, Hypertension, Skin Disorder, Thyroid Disorder Additional Past Medical History / Comment(s): hx psoriasis, osteoporosis, sinus problems, states difficlulty swallowing History of Any Multi-Drug Resistant Organisms: None Reported Past Surgical History: Appendectomy, Breast Surgery, Heart Catheterization, Hysterectomy, Tonsillectomy Additional Past Surgical History / Comment(s): cystocele, rectocele repair, arnold cataracts, right shoulder. rt breast benign lumpectomy Past Anesthesia/Blood Transfusion Reactions: No Reported Reaction Additional Past Anesthesia/Blood Transfusion Reaction / Comment(s): sensitive gag reflex Past Psychological History: No Psychological Hx Reported Smoking Status: Former smoker Past Alcohol Use History: None Reported Past Drug Use History: None Reported - Past Family History Mother Family Medical History: No Reported History Father History Unknown: Yes Medications and Allergies Home Medications Medication Instructions Recorded Confirmed Type Levothyroxine Sodium [Synthroid] 50 mcg PO AC-BRKFST 02/15/15 01/12/24 History Alendronate Sodium [Fosamax] 70 mg PO ROBLEDO 12/27/16 01/12/24 History Candesartan Cilexetil 32 mg PO DAILY 01/12/24 01/12/24 History Donepezil [Aricept] 10 mg PO DAILY 01/12/24 01/12/24 History Folic Acid 1 mg PO SUMOTUTHFRSA 01/12/24 01/12/24 History Rosuvastatin [Crestor] 10 mg PO DAILY 01/12/24 01/12/24 History hydroCHLOROthiazide [Hydrodiuril] 12.5 mg PO DAILY 01/12/24 01/12/24 History metHOTREXate sodium [Methotrexate] 10 mg PO WE 01/12/24 01/12/24 History Allergies Allergy/AdvReac Type Severity Reaction Status Date / Time Iodinated Contrast Media Allergy head to Verified 01/12/24 18:30 [Iodinated Contrast- Oral toe rash and IV Dye] Penicillins Allergy Rash/Hives Verified 01/12/24 18:30 Sulfa (Sulfonamide Allergy Unknown Verified 01/12/24 18:30 Antibiotics) Childhood sulfamethoxazole Allergy Unknown Verified 01/12/24 18:30 [From Bactrim] Childhood trimethoprim [From Bactrim] Allergy Unknown Verified 01/12/24 18:30 Childhood codeine AdvReac Nausea & Verified 01/12/24 18:30 Vomiting & Diarrhea Physical Exam Vitals: Vital Signs Temp Pulse Pulse Resp BP BP Pulse Ox 01/13/24 07:00 97.9 F 56 L 17 151/71 100 01/13/24 02:00 97.5 F L 67 16 154/74 99 01/12/24 22:33 98.2 F 61 16 158/75 96 01/12/24 22:30 61 16 01/12/24 22:05 97.8 F 56 L 18 132/78 98 01/12/24 21:15 97.8 F 57 L 17 135/74 98 01/12/24 16:31 97.7 F 50 L 17 97/53 100 Intake and Output 01/12/24 01/13/24 01/13/24 22:59 06:59 14:59 Intake Total 240 240 Balance 240 240 Intake: Oral 240 240 Other: Voiding Method Toilet # Voids 1 2 Weight 59.874 kg Results CBC & Chem 7: 01/12/24 17:15 01/12/24 17:15 Labs: Abnormal Lab Results - Last 24 Hours (Table) 01/12/24 01/12/24 01/12/24 Range/Units 17:15 17:15 20:40 BUN 24 H (7-17) mg/dL Creatinine 1.40 H (0.52-1.04) mg/dL Glucose 113 H (74-99) mg/dL Plasma Lactic Acid Bryan 2.8 H* (0.7-2.0) mmol/L Calcium 10.3 H (8.4-10.2) mg/dL AST 54 H (14-36) U/L ALT 54 H (4-34) U/L Urine Appearance Cloudy H (Clear) Urine Protein 1+ H (Negative) Urine Ketones 1+ H (Negative) Ur Leukocyte Esterase Large H (Negative) Urine WBC 91 H (0-5) /hpf Urine Bacteria Occasional H (None) /hpf Hyaline Casts 175 H (0-2) /lpf Urine Mucus Few H (None) /hpf Thrombosis Risk Factor Assmnt - Choose All That Apply Each Risk Factor Represents 3 Points: Age 75 years or older Thrombosis Risk Factor Assessment Total Risk Factor Score: 3 Thrombosis Risk Factor Assessment Level: Moderate Risk
[2024-01-13] MEDS: metroNIDAZOLE-NS PMX 500 MG in SALINE 1 100ML.BAG IVPB SCH (14:29)
[2024-01-13] MEDS: DONEPEZIL 10 MG TAB PO SCH (15:36)
[2024-01-13] MEDS: ONDANSETRON 4 MG/2 ML VIAL IVP PRN (18:25)
--- NOTE | 2024-01-13 22:26 | P.CONS ---
History of Present Illness - Reason for Consult Consult date: 01/13/24 Acute diverticulitis Requesting physician: Pacheco [place] - Chief Complaint Abdominal pain X few days - History of Present Illness Patient is a 88-year-old female with a past medical history significant for hypertension hyperlipidemia reflux hypothyroidism presenting to the hospital for evaluation of abdominal pain nausea and vomiting in this patient symptom has been going on for a day or 2 before presentation the hospital pain has been across lower abdominal area mostly colicky pressure moderate intensity without any radiation with associated nausea and vomiting denies having any diarrhea or significant constipation with the symptoms the patient presented to hospital on arrival to the patient was afebrile and no fever have been called subsequently patient was not tachycardic hypotensive or hypoxic he did have a white count of 8.4 BUN and creatinine has been mildly elevated lactic acid was 2.8 liver isms mildly elevated urine has been positive patient did have CT of abdominal pelvis extensive colonic diverticulosis with proximal sigmoid diverticulitis no evidence of any perforation patient did have a penicillin allergy has been started on Rocephin and Flagyl infectious disease was consulted for further management of antibiotic therapy Review of Systems Positive point and negatives has been mentioned in the HPI, complete review of systems was performed and all other systems are negative Past Medical History Past Medical History: GERD/Reflux, Hyperlipidemia, Hypertension, Skin Disorder, Thyroid Disorder Additional Past Medical History / Comment(s): hx psoriasis, osteoporosis, sinus problems, states difficlulty swallowing History of Any Multi-Drug Resistant Organisms: None Reported Past Surgical History: Appendectomy, Breast Surgery, Heart Catheterization, Hysterectomy, Tonsillectomy Additional Past Surgical History / Comment(s): cystocele, rectocele repair, arnold cataracts, right shoulder. rt breast benign lumpectomy Past Anesthesia/Blood Transfusion Reactions: No Reported Reaction Additional Past Anesthesia/Blood Transfusion Reaction / Comm: sensitive gag reflex Past Psychological History: No Psychological Hx Reported Smoking Status: Former smoker Past Alcohol Use History: None Reported Past Drug Use History: None Reported - Past Family History Mother Family Medical History: No Reported History Father History Unknown: Yes Medications and Allergies Home Medications Medication Instructions Recorded Confirmed Type Levothyroxine Sodium [Synthroid] 50 mcg PO AC-BRKFST 02/15/15 01/12/24 History Alendronate Sodium [Fosamax] 70 mg PO ROBLEDO 12/27/16 01/12/24 History Candesartan Cilexetil 32 mg PO DAILY 01/12/24 01/12/24 History Donepezil [Aricept] 10 mg PO DAILY 01/12/24 01/12/24 History Folic Acid 1 mg PO SUMOTUTHFRSA 01/12/24 01/12/24 History Rosuvastatin [Crestor] 10 mg PO DAILY 01/12/24 01/12/24 History hydroCHLOROthiazide [Hydrodiuril] 12.5 mg PO DAILY 01/12/24 01/12/24 History metHOTREXate sodium [Methotrexate] 10 mg PO WE 01/12/24 01/12/24 History Allergies Allergy/AdvReac Type Severity Reaction Status Date / Time Iodinated Contrast Media Allergy head to Verified 01/12/24 18:30 [Iodinated Contrast- Oral toe rash and IV Dye] Penicillins Allergy Rash/Hives Verified 01/12/24 18:30 Sulfa (Sulfonamide Allergy Unknown Verified 01/12/24 18:30 Antibiotics) Childhood sulfamethoxazole Allergy Unknown Verified 01/12/24 18:30 [From Bactrim] Childhood trimethoprim [From Bactrim] Allergy Unknown Verified 01/12/24 18:30 Childhood codeine AdvReac Nausea & Verified 01/12/24 18:30 Vomiting & Diarrhea Physical Exam Vitals: Vital Signs Temp Pulse Pulse Resp BP BP Pulse Ox 01/13/24 08:00 56 L 17 01/13/24 07:00 97.9 F 56 L 17 151/71 100 01/13/24 02:00 97.5 F L 67 16 154/74 99 01/12/24 22:33 98.2 F 61 16 158/75 96 01/12/24 22:30 61 16 01/12/24 22:05 97.8 F 56 L 18 132/78 98 01/12/24 21:15 97.8 F 57 L 17 135/74 98 01/12/24 16:31 97.7 F 50 L 17 97/53 100 Intake and Output 01/12/24 01/13/24 01/13/24 22:59 06:59 14:59 Intake Total 240 240 Balance 240 240 Intake: Oral 240 240 Other: Voiding Method Toilet Toilet # Voids 1 2 Weight 59.874 kg GENERAL DESCRIPTION: Elderly female lying in bed, no distress. No tachypnea or accessory muscle of respiration use. HEENT: Shows Pallor , no scleral icterus. Oral mucous membrane is dry. No pharyngeal erythema or thrush NECK: Trachea central, no thyromegaly. LUNGS: Unlabored breathing. Clear to auscultation anteriorly. No wheeze or crackle. HEART: S1, S2, regular rate and rhythm. No loud murmur ABDOMEN: Soft, mild tenderness , no guarding or rigidity, no organomegaly EXTREMITIES: No edema of feet. SKIN: No rash, no masses palpable. NEUROLOGICAL: The patient is awake, alert, oriented x3, mood and affect normal. Results CBC & Chem 7: 01/12/24 17:15 01/12/24 17:15 Labs: Abnormal Lab Results - Last 24 Hours (Table) 01/12/24 01/12/24 01/12/24 Range/Units 17:15 17:15 20:40 BUN 24 H (7-17) mg/dL Creatinine 1.40 H (0.52-1.04) mg/dL Glucose 113 H (74-99) mg/dL Plasma Lactic Acid Bryan 2.8 H* (0.7-2.0) mmol/L Calcium 10.3 H (8.4-10.2) mg/dL AST 54 H (14-36) U/L ALT 54 H (4-34) U/L Urine Appearance Cloudy H (Clear) Urine Protein 1+ H (Negative) Urine Ketones 1+ H (Negative) Ur Leukocyte Esterase Large H (Negative) Urine WBC 91 H (0-5) /hpf Urine Bacteria Occasional H (None) /hpf Hyaline Casts 175 H (0-2) /lpf Urine Mucus Few H (None) /hpf Assessment and Plan (1) Allergy to multiple antibiotics Current Visit: Yes Status: Acute Code(s): Z88.1 - ALLERGY STATUS TO OTHER ANTIBIOTIC AGENTS SNOMED Code(s): 099909982 (2) Diverticulitis Current Visit: Yes Status: Acute Code(s): K57.92 - DVTRCLI OF INTEST, PART UNSP, W/O PERF OR ABSCESS W/O BLEED SNOMED Code(s): 097335514 Plan: 1patient presented to hospital with abdominal pain nausea and vomiting in this patient who did have evidence of sigmoid diverticulitis on the CT with no evidence of any perforation will need to cover for the enteric gram-negative both aerobes and anaerobes. 2patient with penicillin sulfa allergy that will limit the number of antibiotics safe to use. 3Rocephin 2 g daily and Flagyl should provide adequate empiric antibiotic coverage at this point along with bowel rest Question concern answered We will follow on clinical condition and cultures to further adjust medication if needed Thank you for this consultation we will follow the patient along with you Dictation was produced using [employer] dictation software. please excuse any grammatical, word or spelling errors. Time with Patient: Greater than 30
[2024-01-14 04:31] LABS: Basophils % (A) 0 %; Eosinophils % (A) 0 %; HCT 36.6 % (34.0-46.0); HGB 12.3 gm/dL (11.4-16.0); Lymphocytes # (A) 1.2 k/uL (1.0-4.8); Lymphocytes % (A) 8 %; MCH 30.7 pg (25.0-35.0); MCHC 33.7 g/dL (31.0-37.0); MCV 91.1 fL (80.0-100.0); Mean Platelet Volume 10.4; Monocytes # (A) 0.6 k/uL (0-1.0); Monocytes % (A) 4 %; Neutrophils # (A) 13.2 k/uL (1.3-7.7); Neutrophils % (A) 87 %; Platelet Count 193 k/uL (150-450); RBC 4.02 m/uL (3.80-5.40); RDW 14.3 % (11.5-15.5); WBC 15.1 k/uL (3.8-10.6)
[2024-01-14 05:13] LABS: ALT 37 U/L (4-34); AST 48 U/L (14-36); African American GFR (CKD) 72 (>60 ml/min/1.73 sqM); Albumin/Globulin Ratio 1.4; Alkaline Phosphatase 50 U/L (38-126); Anion Gap 8 mmol/L; Blood Urea Nitrogen 19 mg/dL (7-17); Calcium 8.7 mg/dL (8.4-10.2); Carbon Dioxide 20 mmol/L (22-30); Chloride 114 mmol/L (98-107); Globulin 2.1 g/dL; Glucose 95 mg/dL (74-99); Non-African American GFR(CKD) 63 (>60 ml/min/1.73 sqM); Potassium 3.9 mmol/L (3.5-5.1); Sodium 142 mmol/L (137-145); Total Bilirubin 0.4 mg/dL (0.2-1.3); Total Protein 5.1 g/dL (6.3-8.2)
[2024-01-14] MEDS: PANTOPRAZOLE 40 MG TABLET PO SCH (10:32)
[2024-01-14] MEDS ORDERED: ACETAMINOPHEN TAB 325 MG TAB PO PRN (15:05)
--- NOTE | 2024-01-14 15:10 | P.PN ---
Subjective Progress Note Date: 01/14/24 History of present illness: 88-year-old female with past medical history significant for early dementia, h ypertension, hyperlipidemia psoriasis, GERD who was brought to the hospital for nausea and vomiting. Patient has poor historian, has early stages of dementia. Patient's reported that patient had upset stomach recently, they went outside to have a dinner. Later in the evening patient was unable to stand up on her own, patient started to have nausea and vomiting and lower abdominal pain. No fever or chills. In the ED patient was afebrile, heart rate 56, respiratory rate 18, blood press ure 132/78, saturating 98% on room air. WBCs 8.4, hemoglobin 13.4 platelet 237. Sodium 137 potassium 3.6 chloride 100 CO2 23 BUN 24, creatinine 1.40, lactate was 2.8 later on came down to 1.0. AST ALT 54 normal bilirubin and alkaline phosphatase. Troponin was negative. UA was positive for large leukocyte esterase, 91 WBCs, occasional bacteria, hyaline cast. CT abdomen pelvis concerning for mild acute diverticulitis. 01/14/2024 Patient evaluated in follow up. Continues on IV ceftriaxone and IV flagyl for acute diverticulitis. Earlier today her abdominal had a significantly but improved and she was not reporting any bowel movements now as this afternoon is going on patient has had multiple bowel movements with crampy abdominal pain requiring additional pain medication. REVIEW OF SYSTEMS: CONSTITUTIONAL: No fever, no malaise, no fatigue. HEENT: No recent visual problems or hearing problems. Denied any sore throat. CARDIOVASCULAR: No chest pain, orthopnea, PND, no palpitations, no syncope. PULMONARY: No shortness of breath, no cough, no hemoptysis. GASTROINTESTINAL: Complains of nausea, vomiting, lower abdominal pain. Crampy pain and diarrhea. NEUROLOGICAL: No headaches, no weakness, no numbness. PHYSICAL EXAMINATION: GENERAL: The patient is A&O x3, NAD HEENT: EOMI, Sclerae anicteric, Moist Mucous membranes Neck: Supple, Non tender, No JVD PULMONARY: Equal breath souds B/L, No wheezing, No crackles. CARDIOVASCULAR: S1, S2 present. No murmurs, rubs, or gallops. ABDOMEN: Soft, left lower quadrant tender, nondistended, normoactive bowel sounds. No guarding or rebound tenderness. MUSCULOSKELETAL: No edema, No cyanosis. No clubbing. Normal ROM. Intact peripheral pulses. EXTREMITIES: No cyanosis, clubbing, or pedal edema. NEUROLOGICAL: CN 2-12 grossly intact. No FND Assessment and plan: Acute sigmoid diverticulitis: Presented with nausea vomiting, lower abdominal pain. CT abdomen pelvis showed mild acute sigmoid diverticulitis. Continue Rocephin and Flagyl Pain managament with oral tylenol IV toradol Check C. Dif Blood cultures ID consult UTI with polymicrobial species; UA and culture will be repeated Continue on IV ceftriaxone ID consultation. NAILA: Secondary to dehydration; resolved creatinine now 0.85. IV fluids Avoid nephrotoxin Monitor renal function Hypertension: Hold ARB due to NAILA; NAILA better ARB will be resumed and monitor renal function. Hyperlipidemia: Holding statin due to elevated LFTs Monitor CMP DVT prophylaxis Subcutaneous heparin Monitor vital signs and labs Continue telemetry monitoring Labs and medication were reviewed. Continue same treatment. Resume home medication. Further recommendations as per clinical course of the patient Check C. Dif continue IV antibiotics Continue liquid diet as tolerated Dictation was produced using [employer] dictation software. please excuse any grammatical, word or spelling errors. The impression and plan of care has been dictated by Nola Freeman Nurse Practitioner as directed. Dr. Rikki MD I have performed a history and physical examination and medical decision making of this patient, discussed the same with the dictator, and agree with the dictators assessment and plan as written, documented as a scribe. Based on total visit time, I have performed more than 50% of this visit. Objective - Vital Signs Vital signs: Vital Signs Temp 97.6 F 01/14/24 07:00 Pulse 51 L 01/14/24 12:45 Resp 17 01/14/24 12:45 BP 159/63 01/14/24 07:00 Pulse Ox 100 01/14/24 07:00 FiO2 Intake & Output 01/13/24 01/14/24 01/14/24 18:59 06:59 18:59 Intake Total 240 118 Output Total 900 Balance 240 -900 118 Intake: Oral 240 118 Output: Gastric Drainage 900 Other: Voiding Method Toilet Toilet # Voids 2 1 4 # Bowel Movements 1 2 - Labs CBC & Chem 7: 01/14/24 02:59 01/14/24 02:59 Labs: Abnormal Lab Results - Last 24 Hours (Table) 01/14/24 01/14/24 Range/Units 02:59 02:59 WBC 15.1 H (3.8-10.6) k/uL Neutrophils # 13.2 H (1.3-7.7) k/uL Chloride 114 H (98-107) mmol/L Carbon Dioxide 20 L (22-30) mmol/L BUN 19 H (7-17) mg/dL AST 48 H (14-36) U/L ALT 37 H (4-34) U/L Total Protein 5.1 L (6.3-8.2) g/dL Albumin 3.0 L (3.5-5.0) g/dL Microbiology - Last 24 Hours (Table) 01/12/24 20:40 Urine Culture - Final Urine,Voided 01/12/24 21:43 Blood Culture - Preliminary Blood Assessment and Plan Time with Patient: Less than 30
[2024-01-14] MEDS: KETOROLAC 15 MG/ML 1 ML VIAL IVP PRN (15:19)
[2024-01-14] MEDS: LOSARTAN 25 MG TAB PO SCH (15:19)
[2024-01-14] MEDS: LOSARTAN 25 MG TAB PO STA (20:59)
[2024-01-15 07:48] LABS: Appearance,Urine Clear (Clear); Bilirubin,Urine Negative (Negative); Blood,Urine Negative (Negative); Color,Urine Yellow; Glucose,Urine (UA) Negative (Negative); Hyaline Casts,Urine 1 /lpf (0-2); Ketones,Urine 1+ (Negative); Leukocyte Esterase,Urine Trace (Negative); Mucus,Urine Rare /hpf; Nitrite,Urine Negative (Negative); PH, Urine 5.5 (5.0-8.0); Protein,Urine Negative (Negative); RBC,Urine 1 /hpf (0-5); Specific Gravity,Urine 1.017 (1.001-1.035); Squamous Epithelial Cell,Urine <1 /hpf (0-4); Urobilinogen,Urine <2.0 mg/dL (<2.0); WBC,Urine 3 /hpf (0-5)
[2024-01-15 08:40] LABS: Blood Urea Nitrogen 12.3 mg/dL (9.0-27.0); Calcium 7.9 mg/dL (8.7-10.3); Carbon Dioxide 22.3 mmol/L (21.6-31.8); Chloride 114 mmol/L (96-109); Glucose 93 mg/dL (70-110); Potassium 3.1 mmol/L (3.5-5.5); Sodium 145 mmol/L (135-145)
[2024-01-15] MEDS: LOSARTAN 50 MG TAB PO SCH (09:34)
--- NOTE | 2024-01-15 13:13 | P.PN ---
Subjective Progress Note Date: 01/14/24 Principal diagnosis: Reason for follow-up is diverticulitis Patient is a 88-year-old female with a past medical history significant for hypertension hyperlipidemia reflux hypothyroidism presenting to the hospital for evaluation of abdominal pain nausea and vomiting, CT abdominal pelvis with extensive diverticulosis and sigmoid diverticulitis no perforation. On today's evaluation that is 01/14/2024, Patient is afebrile patient is currently on room air and denies having any shortness of breath, the patient denies any chest pain or cough, the patient did have some improvement nausea tolerating her diet abdominal pain has decreased in intensity Patient white count is up to 15.1 today, creatinine 0.85 UA was positive Objective - Vital Signs Vital signs: Vital Signs Temp 97.6 F 01/14/24 07:00 Pulse 51 L 01/14/24 12:45 Resp 17 01/14/24 12:45 BP 159/63 01/14/24 07:00 Pulse Ox 100 01/14/24 07:00 FiO2 Intake & Output 01/13/24 01/14/24 01/14/24 18:59 06:59 18:59 Intake Total 240 118 Output Total 900 Balance 240 -900 118 Intake: Oral 240 118 Output: Gastric Drainage 900 Other: Voiding Method Toilet Toilet # Voids 2 1 4 # Bowel Movements 1 2 - Exam GENERAL DESCRIPTION: An elderly female lying in bed in no distress RESPIRATORY SYSTEM: Unlabored breathing , decreased breath sounds at bases HEART: S1 S2 regular rate and rhythm , ABDOMEN: Soft , no tenderness EXTREMITIES: No edema feet - Labs CBC & Chem 7: 01/14/24 02:59 01/15/24 02:34 Labs: Abnormal Lab Results - Last 24 Hours (Table) 01/14/24 01/14/24 Range/Units 02:59 02:59 WBC 15.1 H (3.8-10.6) k/uL Neutrophils # 13.2 H (1.3-7.7) k/uL Chloride 114 H (98-107) mmol/L Carbon Dioxide 20 L (22-30) mmol/L BUN 19 H (7-17) mg/dL AST 48 H (14-36) U/L ALT 37 H (4-34) U/L Total Protein 5.1 L (6.3-8.2) g/dL Albumin 3.0 L (3.5-5.0) g/dL Microbiology - Last 24 Hours (Table) 01/12/24 20:40 Urine Culture - Final Urine,Voided 01/12/24 21:43 Blood Culture - Preliminary Blood Assessment and Plan (1) Allergy to multiple antibiotics Current Visit: Yes Status: Acute Code(s): Z88.1 - ALLERGY STATUS TO OTHER ANTIBIOTIC AGENTS SNOMED Code(s): 992784810 (2) Diverticulitis Current Visit: Yes Status: Acute Code(s): K57.92 - DVTRCLI OF INTEST, PART UNSP, W/O PERF OR ABSCESS W/O BLEED SNOMED Code(s): 428723428 Plan: 1patient presented to hospital with abdominal pain nausea and vomiting in this patient who did have evidence of sigmoid diverticulitis on the CT with no evidence of any perforation will need to cover for the enteric gram-negative both aerobes and anaerobes. 2patient with penicillin sulfa allergy that will limit the number of antibiotics safe to use. 3patient did have slight worsening of the white count will monitor closely for now continue Rocephin 2 g daily and Flagyl along with bowel rest Dictation was produced using [employer] dictation software. please excuse any grammatical, word or spelling errors. Time with Patient: Less than 30
--- NOTE | 2024-01-15 13:14 | P.PN ---
Subjective Progress Note Date: 01/15/24 Principal diagnosis: Reason for follow-up is diverticulitis Patient is a 88-year-old female with a past medical history significant for hypertension hyperlipidemia reflux hypothyroidism presenting to the hospital for evaluation of abdominal pain nausea and vomiting, CT abdominal pelvis with extensive diverticulosis and sigmoid diverticulitis no perforation. On today's evaluation that is 01/15/2024, patient has been afebrile, patient is breathing comfortably and is currently on room air, patient denies having any significant cough no chest pain shortness of breath, patient denies nausea vomiting and abdominal pain has decreased in intensity. Patient creatinine is 1.0 no CBC was done today cultures are currently pending Objective - Vital Signs Vital signs: Vital Signs Temp 97.9 F 01/15/24 07:40 Pulse 48 L 01/15/24 07:40 Resp 15 01/15/24 07:40 BP 172/70 01/15/24 07:40 Pulse Ox 98 01/15/24 07:40 FiO2 Intake & Output 01/14/24 01/15/24 01/15/24 18:59 06:59 18:59 Intake Total 354 240 Balance 354 240 Intake: Oral 354 240 Other: Voiding Method Toilet Toilet # Voids 4 1 # Bowel Movements 2 1 - Exam GENERAL DESCRIPTION: An elderly female lying in bed in no distress RESPIRATORY SYSTEM: Unlabored breathing , decreased breath sounds at bases HEART: S1 S2 regular rate and rhythm , ABDOMEN: Soft , no tenderness EXTREMITIES: No edema feet - Labs CBC & Chem 7: 01/14/24 02:59 01/15/24 02:34 Labs: Abnormal Lab Results - Last 24 Hours (Table) 01/15/24 01/15/24 Range/Units 02:34 06:45 Potassium 3.1 L (3.5-5.5) mmol/L Chloride 114 H (96-109) mmol/L Est GFR (CKD-EPI) 55 L (>=60) Calcium 7.9 L (8.7-10.3) mg/dL Urine Ketones 1+ H (Negative) Ur Leukocyte Esterase Trace H (Negative) Urine Mucus Rare H (None) /hpf Microbiology - Last 24 Hours (Table) 01/12/24 21:43 Blood Culture - Preliminary Blood Assessment and Plan (1) Allergy to multiple antibiotics Current Visit: Yes Status: Acute Code(s): Z88.1 - ALLERGY STATUS TO OTHER ANTIBIOTIC AGENTS SNOMED Code(s): 647900720 (2) Diverticulitis Current Visit: Yes Status: Acute Code(s): K57.92 - DVTRCLI OF INTEST, PART UNSP, W/O PERF OR ABSCESS W/O BLEED SNOMED Code(s): 293096705 Plan: 1patient presented to hospital with abdominal pain nausea and vomiting in this patient who did have evidence of sigmoid diverticulitis on the CT with no evidence of any perforation will need to cover for the enteric gram-negative both aerobes and anaerobes. 2patient with penicillin sulfa allergy that will limit the number of antibiotics safe to use. 3patient seem to have some clinical improvement we will repeat his CBC to make sure white count is trending down and continue Rocephin 2 g daily and Flagyl along with bowel rest Dictation was produced using [employer] dictation software. please excuse any grammatical, word or spelling errors. Time with Patient: Less than 30
[2024-01-15] MEDS: POTASSIUM CHLORIDE ER 20 MEQ TAB.ER PO SCH (15:01)
[2024-01-15] MEDS: hydrALAZINE HCL 25 MG TAB PO SCH (20:48)
[2024-01-16 08:05] VITALS: RESP 16; TEMP 97.9
[2024-01-16 08:36] LABS: Basophils # (A) 0.03 X 10*3/uL (0.00-0.10); Basophils % (A) 0.4 %; Eosinophils # (A) 0.14 X 10*3/uL (0.04-0.35); HCT 35.2 % (37.2-46.3); HGB 11.7 g/dL (12.0-15.0); Lymphocytes # (A) 0.75 X 10*3/uL (0.90-5.00); MCH 31.3 pg (27.0-32.0); MCHC 33.2 g/dL (32.0-37.0); MCV 94.1 FL (80.0-97.0); Mean Platelet Volume 12.4 FL (9.5-12.2); Monocytes # (A) 0.57 X 10*3/uL (0.20-1.00); Monocytes % (A) 8.3 %; NRBC Per 100 WBC 0 X 10*3/uL (0.00-0.01); Neutrophils # (A) 5.28 X 10*3/uL (1.80-7.70); Neutrophils % (A) 77.3 %; Platelet Count 156 X 10*3/uL (140-440); RBC 3.74 X 10*6/uL (4.10-5.20); RDW 14.6 % (11.5-14.5); WBC 6.84 X 10*3/uL (4.50-10.00)
[2024-01-16 09:02] LABS: Blood Urea Nitrogen 6.8 mg/dL (9.0-27.0); Calcium 8.3 mg/dL (8.7-10.3); Carbon Dioxide 17.8 mmol/L (21.6-31.8); Chloride 108 mmol/L (96-109); Glucose 84 mg/dL (70-110); Potassium 3.9 mmol/L (3.5-5.5); Sodium 137 mmol/L (135-145)
[2024-01-16] MEDS: hydroCHLOROthiazide 12.5 MG CAP PO SCH (10:36)
[2024-01-16 11:14] VITALS: BP 179/64; PULSE 53
--- NOTE | 2024-01-16 12:39 | P.PN ---
Subjective Progress Note Date: 01/16/24 Principal diagnosis: Reason for follow-up is diverticulitis Patient is a 88-year-old female with a past medical history significant for hypertension hyperlipidemia reflux hypothyroidism presenting to the hospital for evaluation of abdominal pain nausea and vomiting, CT abdominal pelvis with extensive diverticulosis and sigmoid diverticulitis no perforation. On today's evaluation that is 01/16/2024, Patient is afebrile this morning patient denies having any chest pain shortness of breath or cough, the patient is breathing comfortably and currently on room air, patient denies any abdominal pain no diarrhea no nausea no vomiting, patient mention feeling better wants to go home. Patient white count normalized to 6.84, creatinine 0.8 blood culture has been negative Objective - Vital Signs Vital signs: Vital Signs Temp 97.9 F 01/16/24 07:00 Pulse 57 L 01/16/24 07:00 Resp 16 01/16/24 07:00 BP 193/72 01/16/24 07:00 Pulse Ox 98 01/16/24 07:00 FiO2 Intake & Output 01/15/24 01/16/24 01/16/24 18:59 06:59 18:59 Intake Total 240 Output Total 0 Balance 240 0 Intake: Oral 240 Output: Post Void Residual 0 Other: Voiding Method Toilet Toilet # Voids 3 1 1 # Bowel Movements 1 1 - Exam GENERAL DESCRIPTION: An elderly female lying in bed in no distress RESPIRATORY SYSTEM: Unlabored breathing , decreased breath sounds at bases HEART: S1 S2 regular rate and rhythm , ABDOMEN: Soft , no tenderness EXTREMITIES: No edema feet - Labs CBC & Chem 7: 01/16/24 03:09 01/16/24 03:09 Labs: Abnormal Lab Results - Last 24 Hours (Table) 01/16/24 01/16/24 Range/Units 03:09 03:09 RBC 3.74 L (4.10-5.20) X 10*6/uL Hgb 11.7 L (12.0-15.0) g/dL Hct 35.2 L (37.2-46.3) % RDW 14.6 H (11.5-14.5) % MPV 12.4 H (9.5-12.2) FL Immature Gran # 0.07 H (0.00-0.04) X 10*3/uL Lymphocytes # 0.75 L (0.90-5.00) X 10*3/uL Carbon Dioxide 17.8 L (21.6-31.8) mmol/L BUN 6.8 L (9.0-27.0) mg/dL BUN/Creatinine Ratio 8.50 L (12.00-20.00) Ratio Calcium 8.3 L (8.7-10.3) mg/dL Microbiology - Last 24 Hours (Table) 01/12/24 21:43 Blood Culture - Preliminary Blood Assessment and Plan (1) Allergy to multiple antibiotics Current Visit: Yes Status: Acute Code(s): Z88.1 - ALLERGY STATUS TO OTHER ANTIBIOTIC AGENTS SNOMED Code(s): 044132054 (2) Diverticulitis Current Visit: Yes Status: Acute Code(s): K57.92 - DVTRCLI OF INTEST, PART UNSP, W/O PERF OR ABSCESS W/O BLEED SNOMED Code(s): 192637266 Plan: 1patient presented to hospital with abdominal pain nausea and vomiting in this patient who did have evidence of sigmoid diverticulitis on the CT with no evidence of any perforation will need to cover for the enteric gram-negative both aerobes and anaerobes. 2patient with penicillin sulfa allergy that will limit the number of antibiotics safe to use. 3patient seem to have some clinical improvement and the patient white count has normalized patient wants to go home we will consider a 10-day course of oral Ceftin and Flagyl on discharge. Family at the bedside questions answered Dictation was produced using [employer] dictation software. please excuse any grammatical, word or spelling errors. Time with Patient: Less than 30
--- NOTE | 2024-01-16 13:36 | P.PN ---
Subjective Progress Note Date: 01/15/24 History of present illness: 88-year-old female with past medical history significant for early dementia, h ypertension, hyperlipidemia psoriasis, GERD who was brought to the hospital for nausea and vomiting. Patient has poor historian, has early stages of dementia. Patient's reported that patient had upset stomach recently, they went outside to have a dinner. Later in the evening patient was unable to stand up on her own, patient started to have nausea and vomiting and lower abdominal pain. No fever or chills. In the ED patient was afebrile, heart rate 56, respiratory rate 18, blood press ure 132/78, saturating 98% on room air. WBCs 8.4, hemoglobin 13.4 platelet 237. Sodium 137 potassium 3.6 chloride 100 CO2 23 BUN 24, creatinine 1.40, lactate was 2.8 later on came down to 1.0. AST ALT 54 normal bilirubin and alkaline phosphatase. Troponin was negative. UA was positive for large leukocyte esterase, 91 WBCs, occasional bacteria, hyaline cast. CT abdomen pelvis concerning for mild acute diverticulitis. 01/14/2024 Patient evaluated in follow up. Continues on IV ceftriaxone and IV flagyl for acute diverticulitis. Earlier today her abdominal had a significantly but improved and she was not reporting any bowel movements now as this afternoon is going on patient has had multiple bowel movements with crampy abdominal pain requiring additional pain medication. 01/15/2024 Patient evaluated today in follow up on the medical floor. Patient continues on IV flagyl and IV rocephin. Repeat UA improved. Only having mild abdominal tenderness. Wants to DC. REVIEW OF SYSTEMS: CONSTITUTIONAL: No fever, no malaise, no fatigue. HEENT: No recent visual problems or hearing problems. Denied any sore throat. CARDIOVASCULAR: No chest pain, orthopnea, PND, no palpitations, no syncope. PULMONARY: No shortness of breath, no cough, no hemoptysis. GASTROINTESTINAL: Complains of nausea, vomiting, lower abdominal pain. Crampy pain and diarrhea. NEUROLOGICAL: No headaches, no weakness, no numbness. PHYSICAL EXAMINATION: GENERAL: The patient is A&O x3, NAD HEENT: EOMI, Sclerae anicteric, Moist Mucous membranes Neck: Supple, Non tender, No JVD PULMONARY: Equal breath souds B/L, No wheezing, No crackles. CARDIOVASCULAR: S1, S2 present. No murmurs, rubs, or gallops. ABDOMEN: Soft, left lower quadrant tender, nondistended, normoactive bowel sounds. No guarding or rebound tenderness. MUSCULOSKELETAL: No edema, No cyanosis. No clubbing. Normal ROM. Intact peripheral pulses. EXTREMITIES: No cyanosis, clubbing, or pedal edema. NEUROLOGICAL: CN 2-12 grossly intact. No FND Assessment and plan: Acute sigmoid diverticulitis: Presented with nausea vomiting, lower abdominal pain. CT abdomen pelvis showed mild acute sigmoid diverticulitis. Continue Rocephin and Flagyl Pain managament with oral tylenol IV toradol Check C. Dif Blood cultures ID consult UTI with polymicrobial species; UA and culture will be repeated Continue on IV ceftriaxone ID consultation. NAILA: Secondary to dehydration; resolved creatinine now 0.85. IV fluids Avoid nephrotoxin Monitor renal function Hypertension: Hold ARB due to NAILA; NAILA better ARB will be resumed and monitor renal function. Hyperlipidemia: Holding statin due to elevated LFTs Monitor CMP DVT prophylaxis Subcutaneous heparin Monitor vital signs and labs Continue telemetry monitoring Labs and medication were reviewed. Continue same treatment. Resume home medication. Further recommendations as per clinical course of the patient Check C. Dif continue IV antibiotics Continue liquid diet as tolerated Dictation was produced using [employer] dictation software. please excuse any grammatical, word or spelling errors. The impression and plan of care has been dictated by Nola Freeman, Nurse Practitioner as directed. Dr. Rikki MD I have performed a history and physical examination and medical decision making of this patient, discussed the same with the dictator, and agree with the dictators assessment and plan as written, documented as a scribe. Based on total visit time, I have performed more than 50% of this visit. Objective - Vital Signs Vital signs: Vital Signs Temp 97.9 F 01/15/24 07:40 Pulse 48 L 01/15/24 07:40 Resp 15 01/15/24 07:40 BP 172/70 01/15/24 07:40 Pulse Ox 98 01/15/24 07:40 FiO2 Intake & Output 01/14/24 01/15/24 01/15/24 18:59 06:59 18:59 Intake Total 354 240 Balance 354 240 Intake: Oral 354 240 Other: Voiding Method Toilet Toilet # Voids 4 1 # Bowel Movements 2 1 - Labs CBC & Chem 7: 01/16/24 03:09 01/16/24 03:09 Labs: Abnormal Lab Results - Last 24 Hours (Table) 01/15/24 01/15/24 Range/Units 02:34 06:45 Potassium 3.1 L (3.5-5.5) mmol/L Chloride 114 H (96-109) mmol/L Est GFR (CKD-EPI) 55 L (>=60) Calcium 7.9 L (8.7-10.3) mg/dL Urine Ketones 1+ H (Negative) Ur Leukocyte Esterase Trace H (Negative) Urine Mucus Rare H (None) /hpf Microbiology - Last 24 Hours (Table) 01/12/24 21:43 Blood Culture - Preliminary Blood
--- NOTE | 2024-01-19 13:04 | P.DS ---
Providers Date of admission: 01/14/24 08:59 Attending physician: Darryl Garcia Consults: 01/13/24 09:59 Consult Physician Routine Consulting Provider: Mary Ramirez Consult Reason/Comments: Acute diverticulitis Do you want consulting provider notified?: Yes Primary care physician: Riley Alves Hospital Course: Final Diagnosis Acute sigmoid diverticulitis UTI with polymicrobial species repeat UA improved after IV ceftriaxone Acute kidney injury prerenal secondary to dehydration Hypertension Hyperlipidemia Discharge Disposition Stable for discharge home. Is given education and a diverticular diet. Patient to continue oral Ceftin and oral Flagyl for the next 10 days on discharge. Patient is also and started on oral hydralazine for improved blood pressure control. Patient to follow-up with her PCP Dr. Riley Alves in 1 to 2 days and also her infectious disease follow-up with Dr. Ramirez has been scheduled for January 22. Hospital Course 88-year-old female with past medical history significant for early dementia, hypertension, hyperlipidemia psoriasis, GERD who was brought to the hospital for nausea and vomiting. Patient has poor historian, has early stages of dementia. Patient's reported that patient had upset stomach recently, they went outside to have a dinner. Later in the evening patient was unable to stand up on her own, patient started to have nausea and vomiting and lower abdominal pain. No fever or chills. In the ED patient was afebrile, heart rate 56, respiratory rate 18, blood pressure 132/78, saturating 98% on room air. WBCs 8.4, hemoglobin 13.4 platelet 237. Sodium 137 potassium 3.6 chloride 100 CO2 23 BUN 24, creatinine 1.40, lactate was 2.8 later on came down to 1.0. AST ALT 54 normal bilirubin and alkaline phosphatase. Troponin was negative. UA was positive for large leukocyte esterase, 91 WBCs, occasional bacteria, hyaline cast. CT abdomen pelvis concerning for mild acute diverticulitis. 01/14/2024 Patient evaluated in follow up. Continues on IV ceftriaxone and IV flagyl for acute diverticulitis. Earlier today her abdominal had a significantly but improved and she was not reporting any bowel movements now as this afternoon is going on patient has had multiple bowel movements with crampy abdominal pain requiring additional pain medication. 01/15/2024 Patient evaluated today in follow up on the medical floor. Patient continues on IV flagyl and IV rocephin. Repeat UA improved. Only having mild abdominal tenderness. Wants to DC. 01/16/2024 Patient is evaluated today in follow-up. She is not reporting any abdominal tenderness at this time she is having a normal bowel movement. She is tolerating some liquid diet. She was cleared by ID for discharge home will continue on a course of oral Ceftin and oral Flagyl for the next 10 days. Please see medication reconciliation for a list of current medications. Thank you for allowing us to participate in the care of this patient. The impression and plan of care has been dictated by Nola Freeman, Nurse Practitioner as directed. Dr. Rikki MD I have performed a history and physical examination and medical decision making of this patient, discussed the same with the dictator, and agree with the dictators assessment and plan as written, documented as a scribe. Based on total visit time, I have performed more than 50% of this visit. Patient Condition at Discharge: Fair Plan - Discharge Summary New Discharge Prescriptions: New cefUROXime axetiL [Ceftin] 500 mg PO BID 10 Days #20 tab metroNIDAZOLE [Flagyl] 500 mg PO TID 10 Days #30 tab hydrALAZINE HCL [Apresoline] 25 mg PO BID #60 tab Pantoprazole [Protonix] 40 mg PO AC-BRKFST #30 tab Continue Levothyroxine Sodium [Synthroid] 50 mcg PO AC-BRKFST Alendronate Sodium [Fosamax] 70 mg PO ROBLEDO Donepezil [Aricept] 10 mg PO DAILY Folic Acid 1 mg PO SUMOTUTHFRSA hydroCHLOROthiazide [Hydrodiuril] 12.5 mg PO DAILY Rosuvastatin [Crestor] 10 mg PO DAILY Candesartan Cilexetil 32 mg PO DAILY metHOTREXate sodium [Methotrexate] 10 mg PO WE Discharge Medication List Levothyroxine Sodium [Synthroid] 50 mcg PO AC-BRKFST 02/15/15 [History] Alendronate Sodium [Fosamax] 70 mg PO ROBLEDO 12/27/16 [History] Candesartan Cilexetil 32 mg PO DAILY 01/12/24 [History] Donepezil [Aricept] 10 mg PO DAILY 01/12/24 [History] Folic Acid 1 mg PO SUMOTUTHFRSA 01/12/24 [History] Rosuvastatin [Crestor] 10 mg PO DAILY 01/12/24 [History] hydroCHLOROthiazide [Hydrodiuril] 12.5 mg PO DAILY 01/12/24 [History] metHOTREXate sodium [Methotrexate] 10 mg PO WE 01/12/24 [History] Pantoprazole [Protonix] 40 mg PO AC-BRKFST #30 tab 01/16/24 [Rx] cefUROXime axetiL [Ceftin] 500 mg PO BID 10 Days #20 tab 01/16/24 [Rx] hydrALAZINE HCL [Apresoline] 25 mg PO BID #60 tab 01/16/24 [Rx] metroNIDAZOLE [Flagyl] 500 mg PO TID 10 Days #30 tab 01/16/24 [Rx] Follow up Appointment(s)/Referral(s): Riley Alves MD [Primary Care Provider] - 1-2 days Mary Ramirez MD [STAFF PHYSICIAN] - 01/23/24 2:00 pm Ambulatory/Diagnostic Orders: Basic Metabolic Panel [LAB.AMB] Location: None Selected Complete Blood Count w/diff [LAB.AMB] Time Frame: 3 Days, Location: None Selected Patient Instructions/Handouts: Diverticulitis Diet (DC), Hypertension (DC) Discharge Disposition: HOME SELF-CARE
== END 2024-01-16 14:24 | disposition home or self-care (01) | DRG 392 ==
LOC: EC 16:24 → 6NMEDSUR 21:47 → OBSVTOIN 01-14 08:59
PROVIDERS: ADMIT Hospitalist; ATTEND Hospitalist
DX: K57.32 Diverticulitis of large intestine without perforation or abscess without bleeding (principal); N17.9 Acute kidney failure, unspecified; N39.0 Urinary tract infection, site not specified; F03.90 Unspecified dementia, unspecified severity, without behavioral disturbance, psychotic disturbance, mood disturbance, and anxiety; I10 Essential (primary) hypertension; E03.9 Hypothyroidism, unspecified; E86.0 Dehydration; E78.5 Hyperlipidemia, unspecified; R79.89 Other specified abnormal findings of blood chemistry; Z87.891 Personal history of nicotine dependence; Z79.890 Hormone replacement therapy; Z79.899 Other long term (current) drug therapy; Z79.83 Long term (current) use of bisphosphonates; Z88.1 Allergy status to other antibiotic agents; Z88.0 Allergy status to penicillin; Z88.2 Allergy status to sulfonamides
CPT/HCPCS: 36415; 74176; 80048; 80053; 81001; 82150; 83605; 83690; 84484; 85025; 86140; 87040; 87086; 87324; 93005; 96361; 96365; 96375; 96376; 99285

== ENCOUNTER 2024-02-05 12:52 | Observation (INO) | payer MEDICARE ==
--- NOTE | 2024-02-05 13:26 | ED ---
Recheck HPI - General Source: patient, family, RN notes reviewed Mode of arrival: wheelchair Limitations: no limitations <Seema Rios - Last Filed: 02/05/24 13:24> - General Source: patient, family, RN notes reviewed Mode of arrival: wheelchair Limitations: no limitations, altered mental status - History of Present Illness MD Complaint: abnormal lab (Weakness anorexia) -: week(s) Returns Today for: Called Because of Abnormal Lab/Test Symptoms Since Prior Visit: no new symptoms Context: called for abnormal lab result Associated Symptoms: none Treatments Prior to Arrival: other <Lito Barber - Last Filed: 02/09/24 17:30> - General Chief Complaint: Recheck/Abnormal Lab/Rx Stated Complaint: Dementia/weight loss Time Seen by Provider: 02/05/24 13:15 - History of Present Illness Initial Comments: Quick Note: This is an 88-year-old female who presents to the emergency department for weight loss and memory problems. Patient has a history of dementia and her is worried that she has been getting more and more forgetful lately. States that she is also not eating and has lost approximately 17 pounds. Patient denies any abdominal pain or nausea, states that she is just not hungry. (Seema Rios) This is a 88-year-old female to ER for weakness with underlying dementia not eating or drinking well not able to take medication with recent weight loss (Lito Barber) - Related Data Home Medications Medication Instructions Recorded Confirmed Levothyroxine Sodium [Synthroid] 50 mcg PO AC-BRKFST 02/15/15 02/05/24 Alendronate Sodium [Fosamax] 70 mg PO ROBLEDO 12/27/16 02/05/24 Candesartan Cilexetil 32 mg PO DAILY 01/12/24 02/05/24 Donepezil [Aricept] 10 mg PO DAILY 01/12/24 02/05/24 Folic Acid 1 mg PO SUMOTUTHFRSA 01/12/24 02/05/24 Rosuvastatin [Crestor] 10 mg PO DAILY 01/12/24 02/05/24 hydroCHLOROthiazide [Hydrodiuril] 12.5 mg PO DAILY 01/12/24 02/05/24 metHOTREXate sodium [Methotrexate] 10 mg PO WE 01/12/24 02/05/24 Calcium Carbonate [Calcium] 1,200 mg PO DAILY 02/05/24 02/05/24 Cholecalciferol [Vitamin D3 (25 25 mcg PO DAILY 02/05/24 02/05/24 Mcg = 1000 Iu)] Mv-Min/Vit C/Glut/Lysine/Hc124 2 tab PO DAILY 02/05/24 02/05/24 [Airborne Tablet Chewable] Ondansetron Odt [Zofran ODT] 4 mg PO Q8HR PRN 02/05/24 02/05/24 Previous Rx's Medication Instructions Recorded Pantoprazole [Protonix] 40 mg PO AC-BRKFST #30 tab 01/16/24 hydrALAZINE HCL [Apresoline] 25 mg PO BID #60 tab 01/16/24 Potassium Chloride ER [K-Dur 20] 20 meq PO BID #4 tab 02/07/24 Allergies Allergy/AdvReac Type Severity Reaction Status Date / Time Iodinated Contrast Media Allergy head to Verified 02/05/24 16:41 [Iodinated Contrast- Oral toe rash and IV Dye] Penicillins Allergy Rash/Hives Verified 02/05/24 16:41 Sulfa (Sulfonamide Allergy Unknown Verified 02/05/24 16:41 Antibiotics) Childhood sulfamethoxazole Allergy Unknown Verified 02/05/24 16:41 [From Bactrim] Childhood trimethoprim [From Bactrim] Allergy Unknown Verified 02/05/24 16:41 Childhood codeine AdvReac Nausea & Verified 02/05/24 16:41 Vomiting & Diarrhea Review of Systems ROS Other: All systems not noted in ROS Statement are negative. <Seema Rios - Last Filed: 02/05/24 13:24> ROS Other: All systems not noted in ROS Statement are negative. <Lito Barber - Last Filed: 02/09/24 17:30> ROS Statement: Those systems with pertinent positive or pertinent negative responses have been documented in the HPI. Past Medical History Past Medical History: GERD/Reflux, Hyperlipidemia, Hypertension, Skin Disorder, Thyroid Disorder Additional Past Medical History / Comment(s): hx psoriasis, osteoporosis, sinus problems, states difficlulty swallowing History of Any Multi-Drug Resistant Organisms: None Reported Past Surgical History: Appendectomy, Breast Surgery, Heart Catheterization, Hysterectomy, Tonsillectomy Additional Past Surgical History / Comment(s): cystocele, rectocele repair, arnold cataracts, right shoulder. rt breast benign lumpectomy Past Anesthesia/Blood Transfusion Reactions: No Reported Reaction Additional Past Anesthesia/Blood Transfusion Reaction / Comment(s): sensitive gag reflex Past Psychological History: No Psychological Hx Reported Smoking Status: Former smoker Past Alcohol Use History: None Reported Past Drug Use History: None Reported - Past Family History Mother Family Medical History: No Reported History Father History Unknown: Yes <Seema Rios - Last Filed: 02/05/24 13:24> General Exam Limitations: no limitations <Seema Rios - Last Filed: 02/05/24 13:24> General appearance: alert, in no apparent distress, anxious, lethargic Head exam: Present: atraumatic, normocephalic, normal inspection Eye exam: Present: normal appearance, PERRL, EOMI. Absent: scleral icterus, conjunctival injection, periorbital swelling ENT exam: Present: normal exam, mucous membranes moist Neck exam: Present: normal inspection. Absent: tenderness, meningismus, lymphadenopathy Respiratory exam: Present: normal lung sounds bilaterally. Absent: respiratory distress, wheezes, rales, rhonchi, stridor Cardiovascular Exam: Present: regular rate, normal rhythm, normal heart sounds. Absent: systolic murmur, diastolic murmur, rubs, gallop, clicks GI/Abdominal exam: Present: soft, normal bowel sounds. Absent: distended, tenderness, guarding, rebound, rigid Extremities exam: Present: normal inspection, full ROM, normal capillary refill. Absent: tenderness, pedal edema, joint swelling, calf tenderness Back exam: Present: normal inspection Neurological exam: Present: alert, oriented X3, CN II-XII intact Psychiatric exam: Present: normal affect, normal mood Skin exam: Present: warm, dry, intact, normal color. Absent: rash <Lito Barber - Last Filed: 02/09/24 17:30> - General Exam Comments Initial Comments: Visual Physical Exam Vital signs reviewed General: Well-appearing, nontoxic, no acute distress. Head: Normocephalic, atraumatic Eyes: PERRLA, EOMI ENT: Airway patent Chest: Nonlabored breathing Skin: No visual rash, normal skin tone Neuro: Alert and oriented 3 Musculoskeletal: No gross abnormalities (Seema Rios) Course <Lito Barber - Last Filed: 02/09/24 17:30> Vital Signs 02/05/24 02/05/24 02/05/24 13:06 17:06 19:02 Temperature 97.3 F L Pulse Rate 79 70 70 Pulse Rate [ Manager Spa ] Respiratory 16 18 18 Rate Blood Pressure 81/56 111/56 120/84 Blood Pressure [Left Arm] O2 Sat by Pulse 97 99 98 Oximetry 02/05/24 02/05/24 02/06/24 20:11 21:47 02:00 Temperature Pulse Rate 68 80 Pulse Rate [ 57 L Manager [place] ] Respiratory 18 18 16 Rate Blood Pressure 130/48 122/54 Blood Pressure 119/55 [Left Arm] O2 Sat by Pulse 97 99 100 Oximetry 02/06/24 02/06/24 15:00 16:58 Temperature 97.2 F L Pulse Rate 70 68 Pulse Rate [ Manager Spa ] Respiratory 21 18 Rate Blood Pressure 130/54 135/62 Blood Pressure [Left Arm] O2 Sat by Pulse 96 96 Oximetry - Reevaluation(s) Reevaluation #1: 02/05/24 19:21 Medical records reviewed (Lito Barber) Reevaluation #2: 02/05/24 19:21 Patient symptoms unchanged (Lito Barber) Reevaluation #3: 02/05/24 19:21 Patient informed of results and questions answered (Lito Barber) Reevaluation #4: Was pt. sent in by a medical professional or institution (, PA, BILL ADJUSTER, urgent care, hospital, or fdc...) When possible be specific @ -no Did you speak to anyone other than the patient for history (EMS, parent, family, police, friend...)? What history was obtained from this source @ -no Did you review nursing and triage notes (agree or disagree)? Why? @ -agree Are old charts reviewed (outside hosp., previous admission, EMS record, old EKG, old radiological studies, urgent care reports/EKG's, fdc records)? Report findings @ -yes Differential Diagnosis (chest pain, altered mental status, abdominal pain women, abdominal pain men, vaginal bleeding, weakness, fever, dyspnea, syncope, headache, dizziness, GI bleed, back pain, seizure, CVA, palpatations, mental health, musculoskeletal)? @ -prior EKG interpreted by me (3pts min.). @ -yes X-rays interpreted by me (1pt min.). @ -yes negative for acute disease CT interpreted by me (1pt min.). @ -no U/S interpreted by me (1pt. min.). @ -no What testing was considered but not performed or refused? (CT, X-rays, U/S, labs)? Why? @ -none What meds were considered but not given or refused? Why? @ -none Did you discuss the management of the patient with other professionals (professionals i.e. DrLeeann, PA, BILL ADJUSTER, lab, RT, psych nurse, older adult social work specialist, news reporter, teacher, forest fire management officer, director of casework)? Give summary @ -no Was smoking cessation discussed for >3mins.? @ -no Was critical care preformed (if so, how long)? @ -no Were there social determinants of health that impacted care today? How? (Homelessness, low income, unemployed, alcoholism, drug addiction, transportation, low edu. Level, literacy, decrease access to med. care, correction, rehab)? @ -none Was there de-escalation of care discussed even if they declined (Discuss DNR or withdrawal of care, Hospice)? DNR status @ -no What co-morbidities impacted this encounter? (DM, HTN, Smoking, COPD, CAD, Cancer, CVA, ARF, Chemo, Hep., AIDS, mental health diagnosis, sleep apnea, morbid obesity)? @ -none Was patient admitted / discharged? Hospital course, mention meds given and route, prescriptions, significant lab abnormalities, going to OR and other pertinent info. @ -[id number] female to the ER for evaluation patient has significantly low potassium levels here in the ER failure to thrive anorexia and weight loss. Will admit for further evaluation and management Undiagnosed new problem with uncertain prognosis? @ -no Drug Therapy requiring intensive monitoring for toxicity (Heparin, Nitro, Insulin, Cardizem)? @ -no Were any procedures done? @ -no Diagnosis/symptom? @ -Failure to thrive anorexia weight loss Acute, or Chronic, or Acute on Chronic? @ -Acute Uncomplicated (without systemic symptoms) or Complicated (systemic symptoms)? @ -Complicated Side effects of treatment? @ -no Exacerbation, Progression, or Severe Exacerbation? @ -exacerbation Poses a threat to life or bodily function? How? (Chest pain, USA, AK, pneumonia, PE, COPD, DKA, ARF, appy, cholecystitis, CVA, Diverticulitis, Homicidal, Suicidal, threat to staff... and all critical care pts) @ -yes extremes of age (Lito Barber) Reevaluation #5: Differential Weakness: Hypoglycemia, shock, sepsis, hyponatremia, anemia, infection, AK, ETOH, adverse medicine reaction, overdose, stroke, this is not meant to be an all-inclusive list. (Lito Barber) - Consultations Consultation #1: Spoke with [facility] who agrees to admit this patient (Lito Barber) Medical Decision Making <Seema Rios - Last Filed: 02/05/24 13:24> - Lab Data Result diagrams: 02/06/24 05:00 02/07/24 06:20 - EKG Data -: EKG Interpreted by Me (EKG is sinus 98 RI 164 QRS 86 QTc 430) - Radiology Data Radiology results: report reviewed (Chest x-ray is negative for acute disease), image reviewed <Lito Barber - Last Filed: 02/09/24 17:30> - Medical Decision Making I performed the QuickNote portion of this chart. Signed Seema Rios PA-C. (Seema Rios) 88 female to the ER for evaluation patient has significantly low potassium levels here in the ER failure to thrive anorexia and weight loss. Will admit for further evaluation and management (Lito Barber) - Lab Data Lab Results 02/05/24 02/05/24 02/05/24 Range/Units 14:44 14:44 16:20 WBC 6.9 (3.8-10.6) k/uL RBC 4.77 (3.80-5.40) m/uL Hgb 14.7 (11.4-16.0) gm/dL Hct 44.6 (34.0-46.0) % MCV 93.6 (80.0-100.0) fL MCH 30.9 (25.0-35.0) pg MCHC 33.0 (31.0-37.0) g/dL RDW 15.4 (11.5-15.5) % Plt Count 256 (150-450) k/uL MPV 8.4 Neutrophils % 82 % Lymphocytes % 10 % Monocytes % 5 % Eosinophils % 1 % Basophils % 0 % Neutrophils # 5.7 (1.3-7.7) k/uL Lymphocytes # 0.7 L (1.0-4.8) k/uL Monocytes # 0.3 (0-1.0) k/uL Eosinophils # 0.1 (0-0.7) k/uL Basophils # 0.0 (0-0.2) k/uL PT 11.8 (10.0-12.5) sec INR 1.1 (<1.2) APTT 22.8 (22.0-30.0) sec Sodium 139 (137-145) mmol/L Potassium 2.8 L (3.5-5.1) mmol/L Chloride 97 L (98-107) mmol/L Carbon Dioxide 27 (22-30) mmol/L Anion Gap 15 mmol/L BUN 40 H (7-17) mg/dL Creatinine 1.77 H (0.52-1.04) mg/dL Est GFR (CKD-EPI)AfAm 30 (>60 ml/min/1.73 sqM) Est GFR (CKD-EPI)NonAf 26 (>60 ml/min/1.73 sqM) Glucose 105 H (74-99) mg/dL Calcium 9.9 (8.4-10.2) mg/dL Phosphorus 2.7 (2.5-4.5) mg/dL Magnesium 2.3 (1.6-2.3) mg/dL Total Bilirubin 0.9 (0.2-1.3) mg/dL AST 27 (14-36) U/L ALT 15 (4-34) U/L Alkaline Phosphatase 66 (38-126) U/L Total Protein 6.2 L (6.3-8.2) g/dL Albumin 3.9 (3.5-5.0) g/dL Disposition <Seema Rios - Last Filed: 02/05/24 13:24> Is patient prescribed a controlled substance at d/c from ED?: No Time of Disposition: 19:30 <Lito Barber - Last Filed: 02/09/24 17:30> Clinical Impression: Hypokalemia, Weakness, Debility, Anorexia Disposition: ADMITTED IP TO THIS HOSP Condition: Fair
[2024-02-05 15:04] LABS: Basophils % (A) 0 %; Eosinophils # (A) 0.1 k/uL (0-0.7); Eosinophils % (A) 1 %; HCT 44.6 % (34.0-46.0); HGB 14.7 gm/dL (11.4-16.0); Lymphocytes # (A) 0.7 k/uL (1.0-4.8); Lymphocytes % (A) 10 %; MCH 30.9 pg (25.0-35.0); MCV 93.6 fL (80.0-100.0); Mean Platelet Volume 8.4; Monocytes # (A) 0.3 k/uL (0-1.0); Monocytes % (A) 5 %; Neutrophils # (A) 5.7 k/uL (1.3-7.7); Neutrophils % (A) 82 %; Platelet Count 256 k/uL (150-450); RBC 4.77 m/uL (3.80-5.40); RDW 15.4 % (11.5-15.5); WBC 6.9 k/uL (3.8-10.6)
--- NOTE | 2024-02-05 15:15 | XR ---
EXAMINATION TYPE: XR chest 2V DATE OF EXAM: 02/05/2024 2:25 PM CLINICAL INDICATION: Female, 88 years old with history of altered mental status; [facility] COMPARISON: Chest radiographs from 08/27/2018 TECHNIQUE: XR chest 2V Frontal view of the chest. FINDINGS: Lungs/Pleura: There is no evidence of pleural effusion, focal consolidation, or pneumothorax. Pulmonary vascularity: Unremarkable. Heart/mediastinum: Cardiomediastinal silhouette is unremarkable. Musculoskeletal: No acute osseous pathology. IMPRESSION: No acute cardiopulmonary disease/process. [facility], , 02/05/2024 3:13 PM
[2024-02-05 15:25] LABS: INR 1.1 (<1.2); Partial Thromboplastin Time 22.8 sec (22.0-30.0); Prothrombin Time 11.8 sec (10.0-12.5)
[2024-02-05 16:51] LABS: ALT 15 U/L (4-34); AST 27 U/L (14-36); African American GFR (CKD) 30 (>60 ml/min/1.73 sqM); Albumin 3.9 g/dL (3.5-5.0); Alkaline Phosphatase 66 U/L (38-126); Anion Gap 15 mmol/L; Blood Urea Nitrogen 40 mg/dL (7-17); Calcium 9.9 mg/dL (8.4-10.2); Carbon Dioxide 27 mmol/L (22-30); Chloride 97 mmol/L (98-107); Glucose 105 mg/dL (74-99); Magnesium 2.3 mg/dL (1.6-2.3); Non-African American GFR(CKD) 26 (>60 ml/min/1.73 sqM); Phosphorus 2.7 mg/dL (2.5-4.5); Potassium 2.8 mmol/L (3.5-5.1); Sodium 139 mmol/L (137-145); Total Bilirubin 0.9 mg/dL (0.2-1.3); Total Protein 6.2 g/dL (6.3-8.2)
[2024-02-05] MEDS ORDERED: ONDANSETRON 4 MG/2 ML VIAL IVP PRN (21:13)
[2024-02-05] MEDS ORDERED: NALOXONE 0.4 MG/ML 1 ML VIAL IV PRN (21:13)
[2024-02-05] MEDS ORDERED: MORPHINE SULFATE 4 MG/ML SYRINGE IV PRN (21:13)
[2024-02-05] MEDS: POTASSIUM BICARBONATE/CIT AC 20 MEQ TABLET.EFF PO ONE (21:36)
[2024-02-05] MEDS: POTASSIUM CHLORIDE 20 MEQ in WATER FOR INJECTION 1 100ML.BAG IVPB STA (21:45)
[2024-02-05] MEDS: SODIUM CHLORIDE 0.9% 1,000 ML IV SCH (21:45)
[2024-02-06 02:22] LABS: Amorphous Sediment,Urine Occasional /hpf; Appearance,Urine Cloudy (Clear); Bilirubin,Urine 1+ (Negative); Blood,Urine Negative (Negative); Color,Urine Dark Brown; Glucose,Urine (UA) Negative (Negative); Hyaline Casts,Urine 247 /lpf (0-2); Ketones,Urine 2+ (Negative); Leukocyte Esterase,Urine Moderate (Negative); Mucus,Urine Few /hpf; Nitrite,Urine Negative (Negative); PH, Urine 5.5 (5.0-8.0); Protein,Urine 1+ (Negative); RBC,Urine 4 /hpf (0-5); Specific Gravity,Urine 1.022 (1.001-1.035); Squamous Epithelial Cell,Urine 3 /hpf (0-4); WBC,Urine 43 /hpf (0-5)
[2024-02-06 05:30] LABS: Basophils % (A) 0 %; Eosinophils # (A) 0.1 k/uL (0-0.7); Eosinophils % (A) 1 %; HCT 38.5 % (34.0-46.0); HGB 12.7 gm/dL (11.4-16.0); Lymphocytes # (A) 0.6 k/uL (1.0-4.8); Lymphocytes % (A) 9 %; MCH 31.2 pg (25.0-35.0); MCHC 33.1 g/dL (31.0-37.0); MCV 94.3 fL (80.0-100.0); Mean Platelet Volume 8.8; Monocytes # (A) 0.4 k/uL (0-1.0); Monocytes % (A) 6 %; Neutrophils # (A) 5.2 k/uL (1.3-7.7); Neutrophils % (A) 82 %; Platelet Count 155 k/uL (150-450); Poikilocytosis Slight; RBC 4.08 m/uL (3.80-5.40); RDW 15.9 % (11.5-15.5); WBC 6.3 k/uL (3.8-10.6)
[2024-02-06 05:59] LABS: ALT 12 U/L (4-34); AST 23 U/L (14-36); African American GFR (CKD) 37 (>60 ml/min/1.73 sqM); Albumin 3.1 g/dL (3.5-5.0); Alkaline Phosphatase 52 U/L (38-126); Anion Gap 9 mmol/L; Blood Urea Nitrogen 42 mg/dL (7-17); Calcium 8.7 mg/dL (8.4-10.2); Carbon Dioxide 27 mmol/L (22-30); Chloride 103 mmol/L (98-107); Glucose 90 mg/dL (74-99); Magnesium 2.1 mg/dL (1.6-2.3); Non-African American GFR(CKD) 32 (>60 ml/min/1.73 sqM); Phosphorus 1.9 mg/dL (2.5-4.5); Potassium 3.3 mmol/L (3.5-5.1); Sodium 139 mmol/L (137-145); Total Bilirubin 0.6 mg/dL (0.2-1.3); Total Protein 5.1 g/dL (6.3-8.2)
--- NOTE | 2024-02-06 10:33 | P.HPIM ---
History of Present Illness History of present illness; 88-year-old female with past medical history of hypothyroidism, hyperlipidemia, hypertension, presents for weakness. Patient's is sitting bedside and reports the patient has had significant weakness since her last hospital stay earlier this month. The states the patient has lost approximately 20 pounds due to poor oral intake. The patient reports that she has not had a good appetite because she has been ill, and even after being discharged from the hospital she still did not regain her appetite. Patient's reports that the patient will only eat 1 bite of the meal and then not be able to take any more. Patient's reports that the patient has had significant nausea anytime she eats which also has not helped her oral intake. Initial lab work done in the ER showed potassium 2.8 which is increased to 3.3, creatinine of 1.77 which decreased to 1.49, WBC 6.3, hemoglobin 12.7, and MCV 94.3. UA from the ED showed cloudy urine significant for 1+ protein, 2+ keto kristal, moderate leukocyte esterase, 43 WBC, and 247 hyaline casts. Patient admitted to internal medicine service REVIEW OF SYSTEMS: CONSTITUTIONAL: No fever, no malaise, no fatigue. HEENT: No recent visual problems or hearing problems. Denied any sore throat. CARDIOVASCULAR: No chest pain, orthopnea, PND, no palpitations, no syncope. PULMONARY: No shortness of breath, no cough, no hemoptysis. GASTROINTESTINAL: No diarrhea, no nausea, no vomiting, no abdominal pain. NEUROLOGICAL: No headaches, no weakness, no numbness. HEMATOLOGICAL: Denies any bleeding or petechiae. GENITOURINARY: Denies any burning micturition, frequency, or urgency. MUSCULOSKELETAL/RHEUMATOLOGICAL: Denies any joint pain, swelling, or any muscle pain. ENDOCRINE: Denies any polyuria or polydipsia. The rest of the 14-point review of systems is negative. PHYSICAL EXAMINATION: GENERAL: The patient is alert and oriented x3, not in any acute distress. Well developed, well nourished. HEENT: Pupils are round and equally reacting to light. EOMI. No scleral icterus. No conjunctival pallor. Normocephalic, atraumatic. No pharyngeal erythema. No thyromegaly. CARDIOVASCULAR: S1 and S2 present. No murmurs, rubs, or gallops. PULMONARY: Chest is clear to auscultation, no wheezing or crackles. ABDOMEN: Soft, nontender, nondistended, normoactive bowel sounds. No palpable organomegaly. MUSCULOSKELETAL: No joint swelling or deformity. EXTREMITIES: No cyanosis, clubbing, or pedal edema. NEUROLOGICAL: Gross neurological examination did not reveal any focal deficits. SKIN: No rashes. Assessment: 88-year-old female with a past medical history of hypothyroidism, hyperlipidemia, hypertensionpresents for weakness. Patient is being worked up for failure to thrive and hypokalemia. Plan Failure to thrive: In the setting of poor p.o. intake Continue NS 75 cc/h Continue to encourage oral intake Hypokalemia: So far patient received potassium chloride 20 mill equivalents IVPB and potassium bicarbonate 40 mill equivalents p.o. once which resulted in increased potassium of 2.8 to 3.3 Will order additional potassium chloride 20 mEq IVPB once Follow-up on labs in the morning PT OT consulted Continue to monitor vital signs, monitor CBC, monitor CMP, continue telemetry monitoring Labs and medication were reviewed. Continue with symptomatic treatment. Resume home medication. Monitor labs and vitals. DVT and GI prophylaxis. Further recommendations as per clinical course of the patient Dictation was produced using [employer] dictation software. please excuse any grammatical, word or spelling errors. Ronaldo confidentiality statement: "The information contained in this communication, including attachments, is confidential, may be privileged, and is intended only for the use of the named recipient(s). Unauthorized use, disclosure, forwarding or copying is strictly prohibited and may be unlawful. If you have received this communication in error, please notify me IMMEDIATELY at the phone number or pager listed above." Dr. Rikki MD I have performed a history and physical examination and medical decision making of this patient, discussed the same with the the resident, and agree with the a ssessment and plan as written. I performed brief physical exam. Past Medical History Past Medical History: GERD/Reflux, Hyperlipidemia, Hypertension, Skin Disorder, Thyroid Disorder Additional Past Medical History / Comment(s): hx psoriasis, osteoporosis, sinus problems, states difficlulty swallowing History of Any Multi-Drug Resistant Organisms: None Reported Past Surgical History: Appendectomy, Breast Surgery, Heart Catheterization, Hysterectomy, Tonsillectomy Additional Past Surgical History / Comment(s): cystocele, rectocele repair, arnold cataracts, right shoulder. rt breast benign lumpectomy Past Anesthesia/Blood Transfusion Reactions: No Reported Reaction Additional Past Anesthesia/Blood Transfusion Reaction / Comment(s): sensitive gag reflex Past Psychological History: No Psychological Hx Reported Smoking Status: Former smoker Past Alcohol Use History: None Reported Past Drug Use History: None Reported - Past Family History Mother Family Medical History: No Reported History Father History Unknown: Yes Medications and Allergies Home Medications Medication Instructions Recorded Confirmed Type Levothyroxine Sodium [Synthroid] 50 mcg PO AC-BRKFST 02/15/15 02/05/24 History Alendronate Sodium [Fosamax] 70 mg PO ROBLEDO 12/27/16 02/05/24 History Candesartan Cilexetil 32 mg PO DAILY 01/12/24 02/05/24 History Donepezil [Aricept] 10 mg PO DAILY 01/12/24 02/05/24 History Folic Acid 1 mg PO SUMOTUTHFRSA 01/12/24 02/05/24 History Rosuvastatin [Crestor] 10 mg PO DAILY 01/12/24 02/05/24 History hydroCHLOROthiazide [Hydrodiuril] 12.5 mg PO DAILY 01/12/24 02/05/24 History metHOTREXate sodium [Methotrexate] 10 mg PO WE 01/12/24 02/05/24 History Pantoprazole [Protonix] 40 mg PO -BRKFST #30 tab 01/16/24 02/05/24 Rx hydrALAZINE HCL [Apresoline] 25 mg PO BID #60 tab 01/16/24 02/05/24 Rx Calcium Carbonate [Calcium] 1,200 mg PO DAILY 02/05/24 02/05/24 History Cholecalciferol [Vitamin D3 (25 25 mcg PO DAILY 02/05/24 02/05/24 History Mcg = 1000 Iu)] Mv-Min/Vit C/Glut/Lysine/Hc124 2 tab PO DAILY 02/05/24 02/05/24 History [Airborne Tablet Chewable] Ondansetron Odt [Zofran Odt] 4 mg PO Q8HR PRN 02/05/24 02/05/24 History Allergies Allergy/AdvReac Type Severity Reaction Status Date / Time Iodinated Contrast Media Allergy head to Verified 02/05/24 16:41 [Iodinated Contrast- Oral toe rash and IV Dye] Penicillins Allergy Rash/Hives Verified 02/05/24 16:41 Sulfa (Sulfonamide Allergy Unknown Verified 02/05/24 16:41 Antibiotics) Childhood sulfamethoxazole Allergy Unknown Verified 02/05/24 16:41 [From Bactrim] Childhood trimethoprim [From Bactrim] Allergy Unknown Verified 02/05/24 16:41 Childhood codeine AdvReac Nausea & Verified 02/05/24 16:41 Vomiting & Diarrhea Physical Exam Vitals: Vital Signs Temp Pulse Pulse Resp BP BP Pulse Ox 02/06/24 02:00 57 L 16 119/55 100 02/05/24 21:47 80 18 122/54 99 02/05/24 20:11 68 18 130/48 97 02/05/24 19:02 70 18 120/84 98 02/05/24 17:06 70 18 111/56 99 02/05/24 13:06 97.3 F L 79 16 81/56 97 Intake and Output 02/05/24 02/06/24 02/06/24 22:59 06:59 14:59 Other: # Voids 1 # Bowel Movements 1 Results CBC & Chem 7: 02/06/24 05:00 02/07/24 06:20 Labs: Abnormal Lab Results - Last 24 Hours (Table) 02/05/24 02/05/24 02/06/24 Range/Units 14:44 16:20 01:15 RDW (11.5-15.5) % Lymphocytes # 0.7 L (1.0-4.8) k/uL Potassium 2.8 L (3.5-5.1) mmol/L Chloride 97 L (98-107) mmol/L BUN 40 H (7-17) mg/dL Creatinine 1.77 H (0.52-1.04) mg/dL Glucose 105 H (74-99) mg/dL Phosphorus (2.5-4.5) mg/dL Total Protein 6.2 L (6.3-8.2) g/dL Albumin (3.5-5.0) g/dL Urine Appearance Cloudy H (Clear) Urine Protein 1+ H (Negative) Urine Ketones 2+ H (Negative) Urine Bilirubin 1+ H (Negative) Ur Leukocyte Esterase Moderate H (Negative) Urine WBC 43 H (0-5) /hpf Amorphous Sediment Occasional H (None) /hpf Hyaline Casts 247 H (0-2) /lpf Urine Mucus Few H (None) /hpf 02/06/24 02/06/24 Range/Units 05:00 05:00 RDW 15.9 H (11.5-15.5) % Lymphocytes # 0.6 L (1.0-4.8) k/uL Potassium 3.3 L (3.5-5.1) mmol/L Chloride (98-107) mmol/L BUN 42 H (7-17) mg/dL Creatinine 1.49 H (0.52-1.04) mg/dL Glucose (74-99) mg/dL Phosphorus 1.9 L (2.5-4.5) mg/dL Total Protein 5.1 L (6.3-8.2) g/dL Albumin 3.1 L (3.5-5.0) g/dL Urine Appearance (Clear) Urine Protein (Negative) Urine Ketones (Negative) Urine Bilirubin (Negative) Ur Leukocyte Esterase (Negative) Urine WBC (0-5) /hpf Amorphous Sediment (None) /hpf Hyaline Casts (0-2) /lpf Urine Mucus (None) /hpf
[2024-02-06] MEDS: POTASSIUM CHLORIDE ER 20 MEQ TAB.ER PO STA (19:31)
[2024-02-06] MEDS: HEPARIN SODIUM,PORCINE 5,000 UNIT/ML 1 ML VIAL SQ SCH (20:45)
[2024-02-06] MEDS: metHOTREXate sodium 2.5 MG TAB PO SCH (20:46)
[2024-02-07 07:04] LABS: ALT 13 U/L (4-34); AST 29 U/L (14-36); African American GFR (CKD) 66 (>60 ml/min/1.73 sqM); Albumin 2.8 g/dL (3.5-5.0); Albumin/Globulin Ratio 1.3; Alkaline Phosphatase 58 U/L (38-126); Anion Gap 4 mmol/L; Blood Urea Nitrogen 28 mg/dL (7-17); Calcium 8.2 mg/dL (8.4-10.2); Carbon Dioxide 24 mmol/L (22-30); Chloride 113 mmol/L (98-107); Globulin 2.1 g/dL; Glucose 95 mg/dL (74-99); Non-African American GFR(CKD) 57 (>60 ml/min/1.73 sqM); Potassium 3.2 mmol/L (3.5-5.1); Sodium 141 mmol/L (137-145); Total Bilirubin 0.6 mg/dL (0.2-1.3); Total Protein 4.9 g/dL (6.3-8.2)
[2024-02-07 08:03] VITALS: RESP 16
[2024-02-07] MEDS: PANTOPRAZOLE 40 MG TABLET PO SCH (08:49)
[2024-02-07] MEDS: CHOLECALCIFEROL 25 MCG (1000 IU) TABLET PO SCH (08:49)
[2024-02-07] MEDS: CALCIUM CARBONATE 500 MG CHEWABLE PO SCH (08:49)
[2024-02-07] MEDS: LEVOTHYROXINE 50 MCG TAB PO SCH (08:49)
[2024-02-07] MEDS: FOLIC ACID 1 MG TAB PO SCH (08:49)
[2024-02-07] MEDS: POTASSIUM CHLORIDE 20 MEQ in WATER FOR INJECTION 1 100ML.BAG IVPB STA (09:33)
--- NOTE | 2024-02-07 09:48 | P.PN ---
Subjective History of present illness; 88-year-old female with past medical history of hypothyroidism, hyperlipidemia, hypertension, presents for weakness. Patient's is sitting bedside and reports the patient has had significant weakness since her last hospital stay earlier this month. The states the patient has lost approximately 20 pounds due to poor oral intake. The patient reports that she has not had a good appetite because she has been ill, and even after being discharged from the hospital she still did not regain her appetite. Patient's reports that the patient will only eat 1 bite of the meal and then not be able to take any more. Patient's reports that the patient has had significant nausea anytime she eats which also has not helped her oral intake. 02/07/2024: Patient seen at bedside. No significant overnight events. Potassium remains low, will continue to replete. Patient is asking when she can be discharged. REVIEW OF SYSTEMS: CONSTITUTIONAL: No fever, no malaise, no fatigue. HEENT: No recent visual problems or hearing problems. Denied any sore throat. CARDIOVASCULAR: No chest pain, orthopnea, PND, no palpitations, no syncope. PULMONARY: No shortness of breath, no cough, no hemoptysis. GASTROINTESTINAL: No diarrhea, no nausea, no vomiting, no abdominal pain. NEUROLOGICAL: No headaches, no weakness, no numbness. HEMATOLOGICAL: Denies any bleeding or petechiae. GENITOURINARY: Denies any burning micturition, frequency, or urgency. MUSCULOSKELETAL/RHEUMATOLOGICAL: Denies any joint pain, swelling, or any muscle pain. ENDOCRINE: Denies any polyuria or polydipsia. The rest of the 14-point review of systems is negative. PHYSICAL EXAMINATION: GENERAL: The patient is alert and oriented x3, not in any acute distress. Well developed, well nourished. HEENT: Pupils are round and equally reacting to light. EOMI. No scleral icterus. No conjunctival pallor. Normocephalic, atraumatic. No pharyngeal erythema. No thyromegaly. CARDIOVASCULAR: S1 and S2 present. No murmurs, rubs, or gallops. PULMONARY: Chest is clear to auscultation, no wheezing or crackles. ABDOMEN: Soft, nontender, nondistended, normoactive bowel sounds. No palpable organomegaly. MUSCULOSKELETAL: No joint swelling or deformity. EXTREMITIES: No cyanosis, clubbing, or pedal edema. NEUROLOGICAL: Gross neurological examination did not reveal any focal deficits. SKIN: No rashes. Assessment: 88-year-old female with a past medical history of hypothyroidism, hyperlipidemia, hypertensionpresents for weakness. Patient is being worked up for failure to thrive and hypokalemia. Plan #Failure to thrive: In the setting of poor p.o. intake Continue NS 75 cc/h Continue to encourage oral intake PT and OT consulted #Hypokalemia: So far patient received potassium chloride 20 mill equivalents IVPB and potassium bicarbonate 40 mill equivalents p.o. once which resulted in increased potassium of 2.8 to 3.3 Continue to replete potassium, ordered additional potassium chloride 20 mEq IVPB once Follow-up on labs in the morning #Acute kidney injury: Likely secondary to dehydration, baseline creatinine 0.8-1 .2. Resolved Maintain NS 75 cc/h Creatinine improved from 1.49 to 0.91 today, back to patient's baseline Continue to monitor vital signs, monitor CBC, monitor CMP, continue telemetry monitoring Labs and medication were reviewed. Continue with symptomatic treatment. Resume home medication. Monitor labs and vitals. DVT and GI prophylaxis. Further recommendations as per clinical course of the patient Dictation was produced using [employer] dictation software. please excuse any grammatical, word or spelling errors. Ronaldo confidentiality statement: "The information contained in this c ommunication, including attachments, is confidential, may be privileged, and is intended only for the use of the named recipient(s). Unauthorized use, disclosure, forwarding or copying is strictly prohibited and may be unlawful. If you have received this communication in error, please notify me IMMEDIATELY at the phone number or pager listed above." Objective - Vital Signs Vital signs: Vital Signs Temp 97.7 F 02/07/24 01:42 Pulse 67 02/07/24 01:42 Resp 16 02/07/24 01:42 BP 148/80 02/07/24 01:42 Pulse Ox 96 02/07/24 01:42 FiO2 Intake & Output 02/06/24 02/07/24 02/07/24 18:59 06:59 18:59 Weight 53.977 kg Other: Voiding Method Bedside Commode # Voids 1 # Bowel Movements 1 - Labs CBC & Chem 7: 02/06/24 05:00 02/07/24 06:20 Labs: Abnormal Lab Results - Last 24 Hours (Table) 02/07/24 Range/Units 06:20 Potassium 3.2 L (3.5-5.1) mmol/L Chloride 113 H (98-107) mmol/L BUN 28 H (7-17) mg/dL Calcium 8.2 L (8.4-10.2) mg/dL Total Protein 4.9 L (6.3-8.2) g/dL Albumin 2.8 L (3.5-5.0) g/dL
[2024-02-07] MEDS: POTASSIUM CHLORIDE ER 20 MEQ TAB.ER PO STA (10:28)
[2024-02-07] MEDS: ATORVASTATIN 20 MG TAB PO SCH (12:08)
[2024-02-07] MEDS: LOSARTAN 50 MG TAB PO SCH (12:09)
[2024-02-07 12:19] VITALS: BP 124/78; PULSE 78; TEMP 97.4
[2024-02-07 13:41] VITALS: BMI 22.4
--- NOTE | 2024-02-07 15:35 | P.DS ---
Providers Date of admission: 02/05/24 21:14 Attending physician: Darryl Garcia Primary care physician: Riley Alves Hospital Course: Discharge Diagnosis: Failure to thrive: In the setting of poor oral intake Hypokalemia Psoriasis Hypertension Hyperlipidemia Hypothyroidism Hospital Course: 88-year-old female with past medical history of hypothyroidism, hyperlipidemia, hypertension, presents for weakness. Patient's is sitting bedside and reports the patient has had significant weakness since her last hospital stay earlier this month. The states the patient has lost approximately 20 pounds due to poor oral intake. The patient reports that she has not had a good appetite because she has been ill, and even after being discharged from the hospital she still did not regain her appetite. Patient's reports that the patient will only eat 1 bite of the meal and then not be able to take any more. Patient's reports that the patient has had significant nausea anytime she eats which also has not helped her oral intake. Initial lab work done in the ER showed potassium 2.8 which is increased to 3.3, creatinine of 1.77 which decreased to 1.49, WBC 6.3, hemoglobin 12.7, and MCV 94.3. UA from the ED showed cloudy urine significant for 1+ protein, 2+ ketones, moderate leukocyte esterase, 43 WBC, and 247 hyaline casts. While admitted the patient received an EKG which showed sinus rhythm with left axis deviation and moderate ST depression. Patient was found to have low Potassium which was repleted during her stay. Patient received IV fluids due to her dehydration. Patient was counseled on the importance of maintaining her diet and to include supplemental nutrition such as Ensure. Patient was advised that she would develop similar weakness that brought her to the hospital this time if she does not maintain good nutrition. On the second day of admission patient's weakness had significantly improved compared to when she initially came in. Patient was given short 2-day course of oral potassium to continue taking at home. Patient has also been scheduled for potassium check in 2 days to ensure the potassium is within normal limits. Patient is medically cleared for discharge to home with home care. Patient is advised to follow-up with her PCP. Pt seen and examined at bedside: No significant overnight events. Patient is eager to go home today. Vital signs reveiwed and stable: General: non toxic, no distress, appears at stated age, normal weight Derm: no unusual rashes/lesions, warm Head: atraumatic, normocephalic, symmetric Eyes: EOMI, no lid lag, anicteric sclera, pupils equal round reactive to light ENT: Nose and ears atraumatic Neck: No cervical lymphadenopathy, trachea midline, supple Mouth: no lip lesion, mucus membranes moist Cardiovascular: S1S2 reg, no murmur, positive dorsalis pedis pulse bilateral, no edema Lungs: Decreased air entry bilaterally, no rhonchi, no rales, no accessory muscle use Abdominal: soft, nontender to palpation, no guarding Ext: muscle strength 5 out of 5 in all 4 extremities grossly, no gross muscle atrophy, no contractures, Neuro: CN II-XI grossly intact, no gross focal neuro deficits Psych: Alert, oriented, appropriate affect A total of [45] minutes were spent preparing this complex discarge summary. Patient was discharged on []. Dr. Rikki MD I have performed a history and physical examination and medical decision making of this patient, discussed the same with the the resident, and agree with the assessment and plan as written. I performed brief physical exam. Patient Condition at Discharge: Fair Plan - Discharge Summary New Discharge Prescriptions: New Potassium Chloride ER [K-Dur 20] 20 meq PO BID #4 tab Continue Levothyroxine Sodium [Synthroid] 50 mcg PO AC-BRKFST Alendronate Sodium [Fosamax] 70 mg PO ROBLEDO Donepezil [Aricept] 10 mg PO DAILY Folic Acid 1 mg PO SUMOTUTHFRSA hydroCHLOROthiazide [Hydrodiuril] 12.5 mg PO DAILY Rosuvastatin [Crestor] 10 mg PO DAILY Cholecalciferol [Vitamin D3 (25 Mcg = 1000 Iu)] 25 mcg PO DAILY Calcium Carbonate [Calcium] 1,200 mg PO DAILY Mv-Min/Vit C/Glut/Lysine/Hc124 [Airborne Tablet Chewable] 2 tab PO DAILY Ondansetron Odt [Zofran ODT] 4 mg PO Q8HR PRN PRN Reason: Nausea And Vomiting Candesartan Cilexetil 32 mg PO DAILY metHOTREXate sodium [Methotrexate] 10 mg PO WE hydrALAZINE HCL [Apresoline] 25 mg PO BID #60 tab Pantoprazole [Protonix] 40 mg PO AC-BRKFST #30 tab Discharge Medication List Levothyroxine Sodium [Synthroid] 50 mcg PO AC-BRKFST 10/12/15 [History] Alendronate Sodium [Fosamax] 70 mg PO ROBLEDO 12/27/16 [History] Candesartan Cilexetil 32 mg PO DAILY 01/12/24 [History] Donepezil [Aricept] 10 mg PO DAILY 01/12/24 [History] Folic Acid 1 mg PO SUMOTUTHFRSA 01/12/24 [History] Rosuvastatin [Crestor] 10 mg PO DAILY 01/12/24 [History] hydroCHLOROthiazide [Hydrodiuril] 12.5 mg PO DAILY 01/12/24 [History] metHOTREXate sodium [Methotrexate] 10 mg PO WE 01/12/24 [History] Pantoprazole [Protonix] 40 mg PO AC-BRKFST #30 tab 01/16/24 [Rx] hydrALAZINE HCL [Apresoline] 25 mg PO BID #60 tab 01/16/24 [Rx] Calcium Carbonate [Calcium] 1,200 mg PO DAILY 02/05/24 [History] Cholecalciferol [Vitamin D3 (25 Mcg = 1000 Iu)] 25 mcg PO DAILY 02/05/24 [History] Mv-Min/Vit C/Glut/Lysine/Hc124 [Airborne Tablet Chewable] 2 tab PO DAILY 02/05/24 [History] Ondansetron Odt [Zofran ODT] 4 mg PO Q8HR PRN 02/05/24 [History] Potassium Chloride ER [K-Dur 20] 20 meq PO BID #4 tab 02/07/24 [Rx] Follow up Appointment(s)/Referral(s): Riley Alves MD [Primary Care Provider] - 02/12/24 9:10 am [facility] Visiting Nurse, [NON-STAFF] - 1 Week Patient Instructions/Handouts: Potassium Chloride (By mouth), Hypokalemia (DC), Weakness (DC), Anorexia in Older Adults (GEN) Discharge Disposition: HOME WITH HOME HEALTH SERVICES
[2024-02-10] MEDS ORDERED: NON FORMULARY DRUG (Alendronate Sodium [Fosamax] 70 MG Tablet) PO SCH (09:00)
== END 2024-02-07 18:06 | disposition home health service (06) ==
LOC: EC 12:52 → 5NMEDONC 21:14
PROVIDERS: ADMIT Hospitalist; ATTEND Hospitalist
CPT/HCPCS: 36415; 71046; 80053; 81001; 83735; 84100; 85025; 85610; 85730; 93005

== ENCOUNTER 2024-03-27 11:18 | Observation (INO) | payer MEDICARE ==
[2024-03-27 12:23] LABS: Basophils % (A) 0 %; Eosinophils # (A) 0.1 k/uL (0-0.7); Eosinophils % (A) 1 %; HCT 43.3 % (34.0-46.0); HGB 14.4 gm/dL (11.4-16.0); Lymphocytes # (A) 1.1 k/uL (1.0-4.8); Lymphocytes % (A) 8 %; MCH 30.6 pg (25.0-35.0); MCHC 33.2 g/dL (31.0-37.0); MCV 92.4 fL (80.0-100.0); Mean Platelet Volume 9.9; Monocytes # (A) 0.5 k/uL (0-1.0); Monocytes % (A) 3 %; Neutrophils # (A) 12.8 k/uL (1.3-7.7); Neutrophils % (A) 88 %; Platelet Count 259 k/uL (150-450); Poikilocytosis Slight; RBC 4.69 m/uL (3.80-5.40); RDW 14.4 % (11.5-15.5); WBC 14.6 k/uL (3.8-10.6)
[2024-03-27 12:38] LABS: ALT 16 U/L (4-34); AST 28 U/L (14-36); African American GFR (CKD) 38 (>60 ml/min/1.73 sqM); Alkaline Phosphatase 104 U/L (38-126); Anion Gap 12 mmol/L; Blood Urea Nitrogen 24 mg/dL (7-17); Calcium 10.1 mg/dL (8.4-10.2); Carbon Dioxide 22 mmol/L (22-30); Chloride 104 mmol/L (98-107); Glucose 150 mg/dL (74-99); Non-African American GFR(CKD) 33 (>60 ml/min/1.73 sqM); Potassium 2.8 mmol/L (3.5-5.1); Sodium 138 mmol/L (137-145); Total Protein 6.7 g/dL (6.3-8.2)
--- NOTE | 2024-03-27 13:11 | ED ---
Weakness HPI - General Source: patient, family, RN notes reviewed Mode of arrival: ambulatory Limitations: no limitations <Anai Sullivan - Last Filed: 03/27/24 13:09> <Siva Grubbs - Last Filed: 03/27/24 17:08> - General Chief complaint: Weakness Stated complaint: Weakness-sent by PCP Time Seen by Provider: 03/27/24 11:32 - History of Present Illness Initial comments: Quick noteis a 89-year-old female presenting to the emergency department with in referral from primary care provider for failure to thrive. Patient has been having a decrease in appetite and worsening weakness over the past few days. Patient had an episode of emesis earlier. Currently patient has no complaints. (Anai Sullivan) 89-year-old female sent in by primary care with poor appetite, concern for dehydration and vomiting. This has been progressive over the past 2 months but does seem to be significantly worsening. Sent in for IV hydration, possible rehab versus additional home care request. Patient herself has no complaints, no chest or abdominal pain. She does have some nausea and has had several episodes of vomiting today. No abdominal pain. (Siva Grubbs) - Related Data Home Medications Medication Instructions Recorded Confirmed Levothyroxine Sodium [Synthroid] 50 mcg PO AC-BRKFST 02/15/15 02/05/24 Alendronate Sodium [Fosamax] 70 mg PO ROBLEDO 12/27/16 02/05/24 Candesartan Cilexetil 32 mg PO DAILY 01/12/24 02/05/24 Donepezil [Aricept] 10 mg PO DAILY 01/12/24 02/05/24 Folic Acid 1 mg PO SUMOTUTHFRSA 01/12/24 02/05/24 Rosuvastatin [Crestor] 10 mg PO DAILY 01/12/24 02/05/24 hydroCHLOROthiazide [Hydrodiuril] 12.5 mg PO DAILY 01/12/24 02/05/24 metHOTREXate sodium [Methotrexate] 10 mg PO WE 01/12/24 02/05/24 Calcium Carbonate [Calcium] 1,200 mg PO DAILY 02/05/24 02/05/24 Cholecalciferol [Vitamin D3 (25 25 mcg PO DAILY 02/05/24 02/05/24 Mcg = 1000 Iu)] Mv-Min/Vit C/Glut/Lysine/Hc124 2 tab PO DAILY 02/05/24 02/05/24 [Airborne Tablet Chewable] Ondansetron Odt [Zofran ODT] 4 mg PO Q8HR PRN 02/05/24 02/05/24 Previous Rx's Medication Instructions Recorded Pantoprazole [Protonix] 40 mg PO AC-BRKFST #30 tab 01/16/24 hydrALAZINE HCL [Apresoline] 25 mg PO BID #60 tab 01/16/24 Potassium Chloride ER [K-Dur 20] 20 meq PO BID #4 tab 02/07/24 Allergies Allergy/AdvReac Type Severity Reaction Status Date / Time Iodinated Contrast Media Allergy head to Verified 03/27/24 11:43 [Iodinated Contrast- Oral toe rash and IV Dye] Penicillins Allergy Rash/Hives Verified 03/27/24 11:43 Sulfa (Sulfonamide Allergy Unknown Verified 03/27/24 11:43 Antibiotics) Childhood sulfamethoxazole Allergy Unknown Verified 03/27/24 11:43 [From Bactrim] Childhood trimethoprim [From Bactrim] Allergy Unknown Verified 03/27/24 11:43 Childhood codeine AdvReac Nausea & Verified 03/27/24 11:43 Vomiting & Diarrhea Review of Systems ROS Other: All systems not noted in ROS Statement are negative. <Anai Sullivan - Last Filed: 03/27/24 13:09> ROS Other: All systems not noted in ROS Statement are negative. <Siva Grubbs - Last Filed: 03/27/24 17:08> ROS Statement: Those systems with pertinent positive or pertinent negative responses have been documented in the HPI. Past Medical History Past Medical History: GERD/Reflux, Hyperlipidemia, Hypertension, Skin Disorder, Thyroid Disorder Additional Past Medical History / Comment(s): hx psoriasis, osteoporosis, sinus problems, states difficlulty swallowing History of Any Multi-Drug Resistant Organisms: None Reported Past Surgical History: Appendectomy, Breast Surgery, Heart Catheterization, Hysterectomy, Tonsillectomy Additional Past Surgical History / Comment(s): cystocele, rectocele repair, arnold cataracts, right shoulder. rt breast benign lumpectomy Past Anesthesia/Blood Transfusion Reactions: No Reported Reaction Additional Past Anesthesia/Blood Transfusion Reaction / Comment(s): sensitive gag reflex Past Psychological History: No Psychological Hx Reported Smoking Status: Former smoker Past Alcohol Use History: None Reported Past Drug Use History: None Reported - Past Family History Mother Family Medical History: No Reported History Father History Unknown: Yes <Anai Sullivan - Last Filed: 03/27/24 13:09> General Exam Limitations: no limitations <Anai Sullivan - Last Filed: 03/27/24 13:09> General appearance: alert, in no apparent distress Head exam: Present: atraumatic, normocephalic Eye exam: Present: normal appearance, PERRL ENT exam: Present: mucous membranes dry Neck exam: Present: normal inspection. Absent: tenderness, meningismus Respiratory exam: Present: normal lung sounds bilaterally. Absent: respiratory distress, wheezes Cardiovascular Exam: Present: regular rate, normal rhythm GI/Abdominal exam: Present: soft. Absent: distended, tenderness, guarding Extremities exam: Present: normal inspection, normal capillary refill. Absent: pedal edema Neurological exam: Present: alert, oriented X3. Absent: motor sensory deficit Psychiatric exam: Present: normal affect, normal mood <Siva Grubbs - Last Filed: 03/27/24 17:08> - General Exam Comments Initial Comments: Visual Physical Exam Vital signs reviewed General: Well-appearing, nontoxic, no acute distress. Head: Normocephalic, atraumatic Eyes: PERRLA, EOMI ENT: Airway patent Chest: Nonlabored breathing Skin: No visual rash, normal skin tone Neuro: Alert and oriented 3 Musculoskeletal: No gross abnormalities (Anai Sullivan) Course <Siva Grubbs - Last Filed: 03/27/24 17:08> Vital Signs 03/27/24 03/27/24 11:37 15:47 Temperature 98 F Pulse Rate 87 80 Respiratory 18 15 Rate Blood Pressure 86/63 141/64 O2 Sat by Pulse 98 Oximetry - Reevaluation(s) Reevaluation #1: 03/27/24 17:06 Urinalysis pending (Siva Grubbs) Medical Decision Making - Lab Data Result diagrams: 03/27/24 12:01 03/27/24 12:01 <Anai Sullivan - Last Filed: 03/27/24 13:09> - Lab Data Result diagrams: 03/27/24 12:01 03/27/24 12:01 <Siva Grubbs N - Last Filed: 03/27/24 17:08> - Medical Decision Making I completed the quick note portion of this chart signed Anai Sullivan PA-C (Anai Sullivan) Was pt. sent in by a medical professional or institution (EDD Su, AMUSEMENT MACHINE MECHANIC, urgent care, hospital, or skilled nursing...) When possible be specific @ -Sent in by primary care for admission Did you speak to anyone other than the patient for history (EMS, parent, family, police, friend...)? What history was obtained from this source @ -Patient's Did you review nursing and triage notes (agree or disagree)? Why? @ -I reviewed and agree with nursing and triage notes Were old charts reviewed (outside hosp., previous admission, EMS record, old EKG, old radiological studies, urgent care reports/EKG's, skilled nursing records)? Report findings @ -No old charts were reviewed Differential Weakness: Hypoglycemia, shock, sepsis, hyponatremia, anemia, infection, OH, ETOH, adverse medicine reaction, overdose, stroke, this is not meant to be an all-inclusive list. EKG interpreted by me (3pts min.). @Sinus rhythm rate of 90, NE interval 179, QRS duration 89, QTc [address] segment elevation. X-rays interpreted by me (1pt min.). @Chest x-ray negative for acute cardiopulmonary findings CT interpreted by me (1pt min.). @ -None done U/S interpreted by me (1pt. min.). @ -None done What testing was considered but not performed or refused? (CT, X-rays, U/S, labs)? Why? @ -None What meds were considered but not given or refused? Why? @ -None Did you discuss the management of the patient with other professionals (prof essionals i.e. EDD Su, AMUSEMENT MACHINE MECHANIC, lab, RT, psych nurse, social scientist, health careers instructor, teacher, chief contract officer, correctional case manager)? Give summary @ -EM Was smoking cessation discussed for >3mins.? @ -No Was critical care preformed (if so, how long)? @ -No Were there social determinants of health that impacted care today? How? (Homelessness, low income, unemployed, alcoholism, drug addiction, transportation, low edu. Level, literacy, decrease access to med. care, half-way, rehab)? @ -No Was there de-escalation of care discussed even if they declined (Discuss DNR or withdrawal of care, Hospice)? DNR status @ -No What co-morbidities impacted this encounter? (DM, HTN, Smoking, COPD, CAD, Cancer, CVA, ARF, Chemo, Hep., AIDS, mental health diagnosis, sleep apnea, morbid obesity)? @Dementia Was patient admitted / discharged? Hospital course, mention meds given and route, prescriptions, significant lab abnormalities, going to OR and other pertinent info. @ -89-year-old female with poor appetite, dehydration, failure to thrive. Normal CBC. She does have an elevated BUN and creatinine. Urinalysis is pending. Chest x-ray is clear. Patient will require admission for hydration, possible rehab versus additional support at home. Case discussed with Nola jacob for [facility] Undiagnosed new problem with uncertain prognosis? @ -No Drug Therapy requiring intensive monitoring for toxicity (Heparin, Nitro, In sulin, Cardizem)? @ -No Were any procedures done? @ -No Diagnosis/symptom? @Dehydration, failure to thrive Acute, or Chronic, or Acute on Chronic? @ -Default Uncomplicated (without systemic symptoms) or Complicated (systemic symptoms)? @ -Default Side effects of treatment? @ -No Exacerbation, Progression, or Severe Exacerbation? @ -No Poses a threat to life or bodily function? How? (Chest pain, USA, OH, pneumonia, PE, COPD, DKA, ARF, appy, cholecystitis, CVA, Diverticulitis, Homicidal, Cande cidal, threat to staff... and all critical care pts) @ -[N yes, electrolyte abnormality, renal failure (Siva Grubbs) - Lab Data Lab Results 03/27/24 03/27/24 03/27/24 Range/Units 12:01 12:01 13:10 WBC 14.6 H (3.8-10.6) k/uL RBC 4.69 (3.80-5.40) m/uL Hgb 14.4 (11.4-16.0) gm/dL Hct 43.3 (34.0-46.0) % MCV 92.4 (80.0-100.0) fL MCH 30.6 (25.0-35.0) pg MCHC 33.2 (31.0-37.0) g/dL RDW 14.4 (11.5-15.5) % Plt Count 259 (150-450) k/uL MPV 9.9 Neutrophils % 88 % Lymphocytes % 8 % Monocytes % 3 % Eosinophils % 1 % Basophils % 0 % Neutrophils # 12.8 H (1.3-7.7) k/uL Lymphocytes # 1.1 (1.0-4.8) k/uL Monocytes # 0.5 (0-1.0) k/uL Eosinophils # 0.1 (0-0.7) k/uL Basophils # 0.0 (0-0.2) k/uL Poikilocytosis Slight Sodium 138 (137-145) mmol/L Potassium 2.8 L (3.5-5.1) mmol/L Chloride 104 (98-107) mmol/L Carbon Dioxide 22 (22-30) mmol/L Anion Gap 12 mmol/L BUN 24 H (7-17) mg/dL Creatinine 1.44 H (0.52-1.04) mg/dL Est GFR (CKD-EPI)AfAm 38 (>60 ml/min/1.73 sqM) Est GFR (CKD-EPI)NonAf 33 (>60 ml/min/1.73 sqM) Glucose 150 H (74-99) mg/dL Calcium 10.1 (8.4-10.2) mg/dL Magnesium 2.1 (1.6-2.3) mg/dL Total Bilirubin 1.0 (0.2-1.3) mg/dL AST 28 (14-36) U/L ALT 16 (4-34) U/L Alkaline Phosphatase 104 (38-126) U/L Total Protein 6.7 (6.3-8.2) g/dL Albumin 4.0 (3.5-5.0) g/dL Disposition <Anai Sullivan - Last Filed: 03/27/24 13:09> Is patient prescribed a controlled substance at d/c from ED?: No Time of Disposition: 17:08 <Siva Grubbs - Last Filed: 03/27/24 17:08> Clinical Impression: Anorexia, Weakness, Dehydration Disposition: ADMITTED IP TO THIS HOSP Condition: Stable Referrals: Riley Alves MD [Primary Care Provider] - 1-2 days
--- NOTE | 2024-03-27 13:11 | XR ---
EXAMINATION TYPE: XR chest 2V DATE OF EXAM: 03/27/2024 12:24 PM COMPARISON: Chest radiographs from 02/05/2024 CLINICAL INDICATION: Female, 89 years old with history of Weakness; TECHNIQUE: XR chest 2V Frontal and lateral views of the chest. FINDINGS: Lungs/Pleura: There is flattening of the diaphragm with increased lucency of the lungs. No evidence o f pneumothorax, pleural effusion or focal consolidation. Pulmonary vascularity: Unremarkable. Heart/mediastinum: Cardiomediastinal silhouette is unremarkable. Musculoskeletal: No acute osseous pathology. IMPRESSION: No acute cardiopulmonary disease/process. [facility], , 03/27/2024 1:09 PM
[2024-03-27] MEDS: SODIUM CHLORIDE 0.9% 1,000 ML IV SCH (16:02)
[2024-03-27] MEDS ORDERED: NALOXONE 0.4 MG/ML 1 ML VIAL IV PRN (17:05)
[2024-03-27] MEDS ORDERED: ACETAMINOPHEN TAB 325 MG TAB PO PRN (17:05)
[2024-03-27] MEDS: SODIUM CHLORIDE 0.9% 500 ML 500 ML IV ONE (17:15)
[2024-03-27] MEDS: POTASSIUM CHLORIDE ER 20 MEQ TAB.ER PO STA (21:17)
[2024-03-28] MEDS ORDERED: ONDANSETRON ODT 4 MG TAB PO PRN (06:59)
[2024-03-28 07:42] LABS: African American GFR (CKD) 44 (>60 ml/min/1.73 sqM); Anion Gap 9 mmol/L; Blood Urea Nitrogen 30 mg/dL (7-17); Calcium 9.1 mg/dL (8.4-10.2); Carbon Dioxide 23 mmol/L (22-30); Chloride 109 mmol/L (98-107); Glucose 89 mg/dL (74-99); Non-African American GFR(CKD) 38 (>60 ml/min/1.73 sqM); Potassium 2.9 mmol/L (3.5-5.1); Sodium 141 mmol/L (137-145)
[2024-03-28] MEDS: LEVOTHYROXINE 50 MCG TAB PO SCH (08:20)
[2024-03-28] MEDS: ATORVASTATIN 20 MG TAB PO SCH (08:20)
[2024-03-28] MEDS: FOLIC ACID 1 MG TAB PO SCH (08:20)
[2024-03-28] MEDS: DONEPEZIL 10 MG TAB PO SCH (08:21)
[2024-03-28] MEDS: CHOLECALCIFEROL 25 MCG (1000 IU) TABLET PO SCH (08:21)
[2024-03-28] MEDS: CALCIUM CARBONATE 500 MG CHEWABLE PO SCH (08:21)
[2024-03-28] MEDS ORDERED: [UNRECOGNIZED DRUG - OTHER] PO SCH (09:00)
[2024-03-28] MEDS ORDERED: LYSINE PO SCH (09:00)
[2024-03-28] MEDS ORDERED: MV MIN PO SCH (09:00)
[2024-03-28] MEDS ORDERED: GLUT PO SCH (09:00)
[2024-03-28] MEDS ORDERED: VIT C PO SCH (09:00)
[2024-03-28] MEDS: POTASSIUM BICARBONATE/CIT AC 20 MEQ TABLET.EFF PO SCH (09:28)
[2024-03-28 10:01] LABS: Appearance,Urine Cloudy (Clear); Bilirubin,Urine Negative (Negative); Blood,Urine Negative (Negative); Color,Urine Yellow; Glucose,Urine (UA) Negative (Negative); Ketones,Urine 1+ (Negative); Leukocyte Esterase,Urine Moderate (Negative); Mucus,Urine Many /hpf; Nitrite,Urine Negative (Negative); Protein,Urine 2+ (Negative); RBC,Urine 1 /hpf (0-5); Specific Gravity,Urine 1.025 (1.001-1.035); Squamous Epithelial Cell,Urine 3 /hpf (0-4); WBC,Urine 34 /hpf (0-5)
[2024-03-28] MEDS ORDERED: QUEtiapine 25 MG TAB PO PRN (12:37)
--- NOTE | 2024-03-28 13:46 | P.HPIM ---
History of Present Illness 89-year-old female was brought in by the because of the increasing generalized weakness for last few days poor appetite has not been eating well patient does have a history of moderate to severe dementia. Patient is found to be hyponatremic with elevated serum creatinine of 1.44 baseline is around 0.6. Patient is also on hydrochlorothiazide which is being held at this time. REVIEW OF SYSTEMS: All other systems are negative except those mentioned in the HPI PHYSICAL EXAMINATION: GENERAL: The patient is alert and oriented x2, not in any acute distress. Well developed, well nourished. HEENT: Pupils are round and equally reacting to light. EOMI. No scleral icterus. No conjunctival pallor. Normocephalic, atraumatic. No pharyngeal erythema. No thyromegaly. CARDIOVASCULAR: S1 and S2 present. No murmurs, rubs, or gallops. PULMONARY: Chest is clear to auscultation, no wheezing or crackles. ABDOMEN: Soft, nontender, nondistended, normoactive bowel sounds. No palpable organomegaly. MUSCULOSKELETAL: No joint swelling or deformity. EXTREMITIES: No cyanosis, clubbing, or pedal edema. NEUROLOGICAL: Gross neurological examination did not reveal any focal deficits. Patient does have significant generalized weakness SKIN: No rashes. Assessment and plan -Dehydration leading to acute renal failure prerenal azotemia: Continue with IV fluids. Replace potassium which is extremely low. Changes of fluids to lactated Ringer's -Hypokalemia secondary to hydrochlorothiazide being replaced at this time. -Poor appetite secondary to advancing dementia -Hyperlipidemia -Hypothyroidism -Vascular dementia For above-mentioned chronic medical problems patient resumed on appropriate home medications DVT prophylaxis: Subcutaneous heparin twice a day Past Medical History Past Medical History: GERD/Reflux, Hyperlipidemia, Hypertension, Skin Disorder, Thyroid Disorder Additional Past Medical History / Comment(s): hx psoriasis, osteoporosis, sinus problems, states difficlulty swallowing History of Any Multi-Drug Resistant Organisms: None Reported Past Surgical History: Appendectomy, Breast Surgery, Heart Catheterization, Hysterectomy, Tonsillectomy Additional Past Surgical History / Comment(s): cystocele, rectocele repair, arnold cataracts, right shoulder. rt breast benign lumpectomy Past Anesthesia/Blood Transfusion Reactions: No Reported Reaction Additional Past Anesthesia/Blood Transfusion Reaction / Comment(s): sensitive gag reflex Past Psychological History: No Psychological Hx Reported Smoking Status: Former smoker Past Alcohol Use History: None Reported Additional Past Alcohol Use History / Comment(s): quit smoking approx 1981,smoked a short times 1 pp per 4 days. Past Drug Use History: None Reported - Past Family History Mother Family Medical History: No Reported History Father History Unknown: Yes Medications and Allergies Home Medications Medication Instructions Recorded Confirmed Type Levothyroxine Sodium [Synthroid] 50 mcg PO AC-BRKFST 02/15/15 03/27/24 History Alendronate Sodium [Fosamax] 70 mg PO ROBLEDO 12/27/16 03/27/24 History Candesartan Cilexetil 32 mg PO DAILY 01/12/24 03/27/24 History Donepezil [Aricept] 10 mg PO DAILY 01/12/24 03/27/24 History Folic Acid 1 mg PO DAILY 01/12/24 03/27/24 History Rosuvastatin [Crestor] 10 mg PO DAILY 01/12/24 03/27/24 History hydroCHLOROthiazide [Hydrodiuril] 12.5 mg PO DAILY 01/12/24 03/27/24 History Calcium Carbonate [Calcium] 1,200 mg PO DAILY 02/05/24 03/27/24 History Cholecalciferol [Vitamin D3 (25 25 mcg PO DAILY 02/05/24 03/27/24 History Mcg = 1000 Iu)] Mv-Min/Vit C/Glut/Lysine/Hc124 2 tab PO DAILY 02/05/24 03/27/24 History [Airborne Tablet Chewable] Ondansetron Odt [Zofran ODT] 4 mg PO Q8HR PRN 02/05/24 03/27/24 History Ginkgo Biloba [place] Extract [Ginkgo] 60 mg PO DAILY 03/27/24 03/27/24 History Allergies Allergy/AdvReac Type Severity Reaction Status Date / Time Iodinated Contrast Media Allergy head to Verified 03/27/24 17:27 [Iodinated Contrast- Oral toe rash and IV Dye] Penicillins Allergy Rash/Hives Verified 03/27/24 17:27 Sulfa (Sulfonamide Allergy Unknown Verified 03/27/24 17:27 Antibiotics) Childhood sulfamethoxazole Allergy Unknown Verified 03/27/24 17:27 [From Bactrim] Childhood trimethoprim [From Bactrim] Allergy Unknown Verified 03/27/24 17:27 Childhood codeine AdvReac Nausea & Verified 03/27/24 17:27 Vomiting & Diarrhea Physical Exam Vitals: Vital Signs Temp Pulse Pulse Pulse Resp BP BP 03/28/24 06:55 97.4 F L 70 16 129/81 03/28/24 02:00 97.4 F L 73 17 03/27/24 22:00 97.2 F L 75 17 03/27/24 20:54 98.3 F 79 17 142/74 03/27/24 20:50 98.3 F 79 17 142/74 03/27/24 19:32 98.5 F 79 17 138/75 03/27/24 17:10 98.1 F 80 16 124/73 03/27/24 15:47 80 15 141/64 BP Pulse Ox 03/28/24 06:55 100 03/28/24 02:00 128/86 94 L 03/27/24 22:00 127/70 99 03/27/24 20:54 98 03/27/24 20:50 98 03/27/24 19:32 96 03/27/24 17:10 03/27/24 15:47 Intake and Output 03/27/24 03/28/24 03/28/24 22:59 06:59 14:59 Intake Total 118 Output Total 1 100 Balance -1 18 Intake: Oral 118 Output: Urine 100 Stool 1 Other: Voiding Method External Catheter External Catheter # Voids 1 1 1 # Bowel Movements 1 Weight 49.895 kg Results CBC & Chem 7: 03/27/24 12:01 03/28/24 07:13 Labs: Abnormal Lab Results - Last 24 Hours (Table) 03/28/24 03/28/24 Range/Units 07:13 08:20 Potassium 2.9 L (3.5-5.1) mmol/L Chloride 109 H (98-107) mmol/L BUN 30 H (7-17) mg/dL Creatinine 1.26 H (0.52-1.04) mg/dL Urine Appearance Cloudy H (Clear) Urine Protein 2+ H (Negative) Urine Ketones 1+ H (Negative) Ur Leukocyte Esterase Moderate H (Negative) Urine WBC 34 H (0-5) /hpf Urine Mucus Many H (None) /hpf Thrombosis Risk Factor Assmnt - Choose All That Apply Any of the Below Risk Factors Present?: Yes Other Risk Factors: Yes Each Risk Factor Represents 3 Points: Age 75 years or older Other congenital or acquired thrombophilia - If yes, enter type in comment: No Thrombosis Risk Factor Assessment Total Risk Factor Score: 3 Thrombosis Risk Factor Assessment Level: Moderate Risk
[2024-03-28] MEDS: LACTATED RINGERS 1,000 ML IV SCH (14:11)
[2024-03-28] MEDS: POTASSIUM CHLORIDE ER 20 MEQ TAB.ER PO STA (14:54)
[2024-03-28] MEDS: SODIUM CHLORIDE 0.9% 1,000 ML IV SCH (16:03)
[2024-03-28] MEDS: HEPARIN SODIUM,PORCINE 5,000 UNIT/ML 1 ML VIAL SQ SCH (20:36)
[2024-03-29 07:21] VITALS: BP 115/69; PULSE 69; RESP 16; TEMP 97.6
[2024-03-29 10:52] LABS: Blood Urea Nitrogen 24.2 mg/dL (9.0-27.0); Calcium 8.6 mg/dL (8.7-10.3); Carbon Dioxide 24.1 mmol/L (21.6-31.8); Chloride 109 mmol/L (96-109); Glucose 97 mg/dL (70-110); Magnesium 1.8 mg/dL (1.5-2.4); Potassium 3.4 mmol/L (3.5-5.5); Sodium 143 mmol/L (135-145)
[2024-03-29] MEDS: MAGNESIUM OXIDE 400 MG TAB PO STA (13:35)
[2024-03-29] MEDS: POTASSIUM CHLORIDE ER 20 MEQ TAB.ER PO STA (13:36)
--- NOTE | 2024-03-29 15:08 | P.DS ---
Providers Date of admission: 03/27/24 17:06 Attending physician: Darryl Garcia Primary care physician: Riley Alves Hospital Course: Final Diagnosis -Dehydration leading to acute renal failure prerenal azotemia: Improved with IV fluid -Hypokalemia secondary to hydrochlorothiazide being replaced at this time. -Poor appetite secondary to advancing dementia -Hyperlipidemia -Hypothyroidism -Vascular dementia Discharge Disposition Stable for discharge home she should follow-up with her PCP Dr. Alves in 1 week this was discussed with family at the bedside she will hold her antihypertensive medications secondary to low normal blood pressures. Recommend to discuss start this patient on appetite stimulant with her PCP. Her decreased diet and appetite is likely due to her advancing dementia at this was discussed with the family. Hospital Course 89-year-old female was brought in by the because of the increasing generalized weakness for last few days poor appetite has not been eating well patient does have a history of moderate to severe dementia. Patient is found to be hyponatremic with elevated serum creatinine of 1.44 baseline is around 0.6. Patient is also on hydrochlorothiazide which is being held at this time. Was diagnosed with dementia at on an outpatient basis. Decrease in functionality and her eating has likely due to advancing dementia. Her verbalizes that he has protein supplementation at home as well as encourages increased oral intake. Blood pressure has also been in the 110 systolic would recommend to hold the candesartan and hydrochlorothiazide on discharge as she was also 90 systolic when she came into the hospital and also at her PCPs office. She is evaluated today she is awake alert oriented. Discussed with family the patient that they should consider an appetite stimulant and follow-up with her PCP Dr. Alves about this we will consider either Megesterol or Marinol. Verbalizes understanding of this. Patient did require magnesium and potassium supplementation her electrolytes have normalized and her renal function has improved. She was evaluated by physical therapy and she has been cleared for discharge home with home care services. Family at the bedside would like to take the patient home today and she has been cleared for discharge. Please see medication reconciliation for a list of current medications. Thank you for allowing us to participate in the care of this patient. The impression and plan of care has been dictated by Nola Freeman Nurse Practitioner as directed. Dr. Rikki MD I have performed a history and physical examination and medical decision making of this patient, discussed the same with the dictator, and agree with the dictators assessment and plan as written, documented as a scribe. Based on total visit time, I have performed more than 50% of this visit. Patient Condition at Discharge: Stable Plan - Discharge Summary New Discharge Prescriptions: New Potassium Chloride ER [K-Dur 20] 20 meq PO DAILY #14 tab Continue Levothyroxine Sodium [Synthroid] 50 mcg PO AC-BRKFST Alendronate Sodium [Fosamax] 70 mg PO ROBLEDO Donepezil [Aricept] 10 mg PO DAILY Folic Acid 1 mg PO DAILY Rosuvastatin [Crestor] 10 mg PO DAILY Cholecalciferol [Vitamin D3 (25 Mcg = 1000 Iu)] 25 mcg PO DAILY Calcium Carbonate [Calcium] 1,200 mg PO DAILY Mv-Min/Vit C/Glut/Lysine/Hc124 [Airborne Tablet Chewable] 2 tab PO DAILY Ondansetron Odt [Zofran ODT] 4 mg PO Q8HR PRN PRN Reason: Nausea And Vomiting Ginkgo Biloba [place] Extract [Ginkgo] 60 mg PO DAILY Discontinued hydroCHLOROthiazide [Hydrodiuril] 12.5 mg PO DAILY Candesartan Cilexetil 32 mg PO DAILY Discharge Medication List Levothyroxine Sodium [Synthroid] 50 mcg PO AC-BRKFST 02/15/15 [History] Alendronate Sodium [Fosamax] 70 mg PO ROBLEDO 12/27/16 [History] Donepezil [Aricept] 10 mg PO DAILY 01/12/24 [History] Folic Acid 1 mg PO DAILY 01/12/24 [History] Rosuvastatin [Crestor] 10 mg PO DAILY 01/12/24 [History] Calcium Carbonate [Calcium] 1,200 mg PO DAILY 02/05/24 [History] Cholecalciferol [Vitamin D3 (25 Mcg = 1000 Iu)] 25 mcg PO DAILY 02/05/24 [History] Mv-Min/Vit C/Glut/Lysine/Hc124 [Airborne Tablet Chewable] 2 tab PO DAILY 02/05/24 [History] Ondansetron Odt [Zofran ODT] 4 mg PO Q8HR PRN 02/05/24 [History] Ginkgo Biloba [place] Extract [Ginkgo] 60 mg PO DAILY 03/27/24 [History] Potassium Chloride ER [K-Dur 20] 20 meq PO DAILY #14 tab 11/23/24 [Rx] Follow up Appointment(s)/Referral(s): Riley Alves MD [Primary Care Provider] - 1-2 days [facility], [NON-STAFF] - As Needed ([facility]. ) [facility] [NON-STAFF] - 1 Week Ambulatory/Diagnostic Orders: Basic Metabolic Panel [LAB.AMB] Time Frame: 3 Days, Location: None Selected Complete Blood Count w/diff [LAB.AMB] Location: None Selected Patient Instructions/Handouts: Dehydration (DC) Activity/Diet/Wound Care/Special Instructions: Hold off on your blood pressure medication. Check your blood pressure at home if BP elevates about 130s on the top number OK to resume the Candesartan. Repeat your blood work in 1 to 2 days Follow up with Dr. Alves in the office in 1 to 2 days. Discharge Disposition: HOME WITH HOME HEALTH SERVICES
[2024-03-30] MEDS ORDERED: NON FORMULARY DRUG (Alendronate Sodium [Fosamax] 70 MG Tablet) PO SCH (09:00)
== END 2024-03-29 14:01 | disposition home health service (06) ==
LOC: EC 11:18 → 6NMEDSUR 17:06
PROVIDERS: ADMIT Hospitalist; ATTEND Hospitalist
DX: E86.0 Dehydration (principal); N17.9 Acute kidney failure, unspecified; R79.89 Other specified abnormal findings of blood chemistry; E87.6 Hypokalemia; T50.2X5A Adverse effect of carbonic-anhydrase inhibitors, benzothiadiazides and other diuretics, initial encounter; E03.9 Hypothyroidism, unspecified; E87.1 Hypo-osmolality and hyponatremia; F01.50 Vascular dementia, unspecified severity, without behavioral disturbance, psychotic disturbance, mood disturbance, and anxiety; R63.0 Anorexia; K21.9 Gastro-esophageal reflux disease without esophagitis; I10 Essential (primary) hypertension; E78.5 Hyperlipidemia, unspecified; Z68.20 Body mass index [BMI] 20.0-20.9, adult; Z87.891 Personal history of nicotine dependence; Z79.890 Hormone replacement therapy; Z79.83 Long term (current) use of bisphosphonates; Z79.899 Other long term (current) drug therapy; Z88.0 Allergy status to penicillin; Z88.2 Allergy status to sulfonamides; Z88.5 Allergy status to narcotic agent
CPT/HCPCS: 96372 ×2; 99285; 36415; 94760; 93005; 97162; 97166; 80053; 80048 ×2; 83735 ×2; 84132; 85025; 81001; 71046; G0378 ×3; J1644 ×2

== ENCOUNTER 2024-03-31 09:12 | Emergency (ER) | payer MEDICARE ==
[2024-03-31 09:17] VITALS: TEMP 97.5
--- NOTE | 2024-03-31 09:36 | ED ---
Chest Pain HPI - General Chief Complaint: Chest Pain Stated Complaint: Chest pain Time Seen by Provider: 03/31/24 09:17 Source: patient, EMS, RN notes reviewed, old records reviewed Mode of arrival: EMS Limitations: no limitations - History of Present Illness Initial Comments: 89-year-old female presents to the emergency department via EMS. Her chief co ncern is right lateral rib pain that started 2 days ago and is currently being managed by Dr. Prado. Her states that she developed this pain that was intermittent about 2 days ago after being discharged from the hospital. He states that she has a history of diverticulitis, which she was being treated for while hospitalized. Reports right lateral rib pain that does not radiate and is reproducible. She denies jaw numbness, tingling, epigastric pain, back pain, shortness of breath. She denies recent history of illness denies cough, fever, and palpitations. She denies leg swelling, tenderness, and pain. She denies recent trauma, fall, or other complaints - Related Data Home Medications Medication Instructions Recorded Confirmed Levothyroxine Sodium [Synthroid] 50 mcg PO AC-BRKFST 02/15/15 03/31/24 Alendronate Sodium [Fosamax] 70 mg PO ROBLEDO 12/27/16 03/31/24 Donepezil [Aricept] 10 mg PO DAILY 01/12/24 03/31/24 Folic Acid 1 mg PO DAILY 01/12/24 03/31/24 Rosuvastatin [Crestor] 10 mg PO DAILY 01/12/24 03/31/24 Calcium Carbonate [Calcium] 1,200 mg PO DAILY 02/05/24 03/31/24 Cholecalciferol [Vitamin D3 (25 25 mcg PO DAILY 02/05/24 03/31/24 Mcg = 1000 Iu)] Mv-Min/Vit C/Glut/Lysine/Hc124 2 tab PO DAILY 02/05/24 03/31/24 [Airborne Tablet Chewable] Ondansetron Odt [Zofran ODT] 4 mg PO Q8HR PRN 02/05/24 03/31/24 Ginkgo Biloba [place] Extract [Ginkgo] 60 mg PO DAILY 03/27/24 03/31/24 Candesartan Cilexetil [Atacand] 32 mg PO DAILY PRN 03/31/24 03/31/24 hydroCHLOROthiazide [Hydrodiuril] 12.5 mg PO DAILY PRN 03/31/24 03/31/24 Previous Rx's Medication Instructions Recorded Potassium Chloride ER [K-Dur 20] 20 meq PO DAILY #14 tab 03/29/24 Ketorolac [Toradol] 10 mg PO Q8HR #10 tab 03/31/24 Allergies Allergy/AdvReac Type Severity Reaction Status Date / Time Iodinated Contrast Media Allergy head to Verified 03/31/24 11:09 [Iodinated Contrast- Oral toe rash and IV Dye] Penicillins Allergy Rash/Hives Verified 03/31/24 11:09 Sulfa (Sulfonamide Allergy Unknown Verified 03/31/24 11:09 Antibiotics) Childhood sulfamethoxazole Allergy Unknown Verified 03/31/24 11:09 [From Bactrim] Childhood trimethoprim [From Bactrim] Allergy Unknown Verified 03/31/24 11:09 Childhood codeine AdvReac Nausea & Verified 03/31/24 11:09 Vomiting & Diarrhea Review of Systems ROS Statement: Those systems with pertinent positive or pertinent negative responses have been documented in the HPI. ROS Other: All systems not noted in ROS Statement are negative. EKG Findings - EKG Comments: EKG Findings:: EKG performed at 9: 17 sinus rhythm rate of 64 DE 166 QRS 77 QT/QTc 415/425 - EKG Results: EKG: interpreted by ANNEMARIE Past Medical History Past Medical History: GERD/Reflux, Hyperlipidemia, Hypertension, Skin Disorder, Thyroid Disorder Additional Past Medical History / Comment(s): hx psoriasis, osteoporosis, sinus problems, states difficlulty swallowing History of Any Multi-Drug Resistant Organisms: None Reported Past Surgical History: Appendectomy, Breast Surgery, Heart Catheterization, Hysterectomy, Tonsillectomy Additional Past Surgical History / Comment(s): cystocele, rectocele repair, arnold cataracts, right shoulder. rt breast benign lumpectomy Past Anesthesia/Blood Transfusion Reactions: No Reported Reaction Additional Past Anesthesia/Blood Transfusion Reaction / Comment(s): sensitive gag reflex Past Psychological History: No Psychological Hx Reported Smoking Status: Former smoker Past Alcohol Use History: None Reported Past Drug Use History: None Reported - Past Family History Mother Family Medical History: No Reported History Father History Unknown: Yes General Exam Limitations: no limitations General appearance: alert, in no apparent distress Head exam: Present: atraumatic, normocephalic, normal inspection Eye exam: Present: normal appearance, PERRL, EOMI. Absent: scleral icterus, conjunctival injection, periorbital swelling ENT exam: Present: normal exam, mucous membranes moist Neck exam: Present: normal inspection. Absent: tenderness, meningismus, lymphadenopathy Respiratory exam: Present: normal lung sounds bilaterally, chest wall tenderness. Absent: respiratory distress, wheezes, rales, rhonchi, stridor Cardiovascular Exam: Present: regular rate, normal rhythm, normal heart sounds. Absent: systolic murmur, diastolic murmur, rubs, gallop, clicks GI/Abdominal exam: Present: soft, normal bowel sounds. Absent: distended, tenderness, guarding, rebound, rigid Extremities exam: Present: normal inspection, full ROM, normal capillary refill. Absent: tenderness, pedal edema, joint swelling, calf tenderness Back exam: Present: normal inspection Neurological exam: Present: alert, oriented X3, CN II-XII intact Psychiatric exam: Present: normal affect, normal mood Skin exam: Present: warm, dry, intact, normal color. Absent: rash Course Vital Signs 03/31/24 03/31/24 03/31/24 09:13 10:50 11:53 Temperature 97.5 F L Pulse Rate 67 70 67 Respiratory 20 20 12 Rate Blood Pressure 164/67 141/61 129/53 O2 Sat by Pulse 99 100 96 Oximetry Chest Pain MDM - MDM Was pt. sent in by a medical professional or institution (Dr. PA, CUSTOMER EXPERIENCE SPECIALIST, urgent care, hospital, or senior care...) When possible be specific @ -No Did you speak to anyone other than the patient for history (EMS, parent, family, police, friend...)? What history was obtained from this source @ - providing past medical history and current complaint Did you review nursing and triage notes (agree or disagree)? Why? @ -I reviewed and agree with nursing and triage notes Were old charts reviewed (outside hosp., previous admission, EMS record, old EKG, old radiological studies, urgent care reports/EKG's, senior care records)? Report findings @ -Reviewed patient inpatient records including labs, social work consults Differential Diagnosis (chest pain, altered mental status, abdominal pain women, abdominal pain men, vaginal bleeding, weakness, fever, dyspnea, syncope, headache, dizziness, GI bleed, back pain, seizure, CVA, palpatations, mental health, musculoskeletal)? @ -Differential Chest Pain: Stable Angina, Unstable Angina, STEMI, NSTEMI Aortic Dissection, Pneumothorax, Musculoskeletal, Esophageal Spasm GERD, Cholecystitis, Pancreatitis, Zoster, this is not meant to be an all-inclusive list. EKG interpreted by me (3pts min.). @ -As above X-rays interpreted by me (1pt min.). @ -Chest shows no acute process CT interpreted by me (1pt min.). @ -None done U/S interpreted by me (1pt. min.). @ -None done What testing was considered but not performed or refused? (CT, X-rays, U/S, labs)? Why? @ -None What meds were considered but not given or refused? Why? @ -None Did you discuss the management of the patient with other professionals (professionals i.e. , PA, CUSTOMER EXPERIENCE SPECIALIST, lab, RT, psych nurse, healthcare social worker, yarn packer, teacher, security control room officer, medical case worker)? Give summary @ -No Was smoking cessation discussed for >3mins.? @ -No Was critical care preformed (if so, how long)? @ -No Were there social determinants of health that impacted care today? How? (Homelessness, low income, unemployed, alcoholism, drug addiction, transportation, low edu. Level, literacy, decrease access to med. care, m[facility], rehab)? @ -No Was there de-escalation of care discussed even if they declined (Discuss DNR or withdrawal of care, Hospice)? DNR status @ -No What co-morbidities impacted this encounter? (DM, HTN, Smoking, COPD, CAD, Cancer, CVA, ARF, Chemo, Hep., AIDS, mental health diagnosis, sleep apnea, morbid obesity)? @ -None Was patient admitted / discharged? Hospital course, mention meds given and route, prescriptions, significant lab abnormalities, going to OR and other pertinent info. @ -Disc charge patient presented for right-sided rib chest wall pain. Patient negative workup she does feel improved with the Toradol be discharged in stable condition updated in room regarding condition and he agrees this is more likely muscle skeletal as he continues to have the casino floor runner, report around her house she is scheduled for home health care today. Undiagnosed new problem with uncertain prognosis? @ -No Drug Therapy requiring intensive monitoring for toxicity (Heparin, Nitro, Insulin, Cardizem)? @ -No Were any procedures done? @ -No Diagnosis/symptom? @ -Chest wall pain Acute, or Chronic, or Acute on Chronic? @ -Acute Uncomplicated (without systemic symptoms) or Complicated (systemic symptoms)? @ -Uncomplicated Side effects of treatment? @ -No Exacerbation, Progression, or Severe Exacerbation? @ -No Poses a threat to life or bodily function? How? (Chest pain, [place], [place], pneumonia, PE, COPD, DKA, ARF, appy, cholecystitis, CVA, Diverticulitis, Homicidal, Suicidal, threat to staff... and all critical care pts) @ -No Disposition Clinical Impression: Chest wall pain, Debility Disposition: HOME SELF-CARE Condition: Stable Instructions (If sedation given, give patient instructions): Chest Pain (DC) Additional Instructions: Please return to the Emergency Department if symptoms worsen or any other concerns. Prescriptions: Ketorolac [Toradol] 10 mg PO Q8HR #10 tab Is patient prescribed a controlled substance at d/c from ED?: No Referrals: Riley Alves MD [Primary Care Provider] - 04/02/24 12:10 pm (Your appointment will be at the new address: [address] [place] [address]) [facility] [NON-STAFF] - 1-2 days (Call for possible help in the home. ) [facility] [facility] [NON-STAFF] - (Call for possible help in the home ) [facility], [NON-STAFF] - As Soon As Possible (Contact after Dr Alves Appointment) Forms: Assisted Living Facilities, Help In The Home, Personal Director Of Health Education Time of Disposition: 11:32
[2024-03-31 10:03] LABS: Basophils % (A) 1 %; Eosinophils # (A) 0.2 k/uL (0-0.7); Eosinophils % (A) 4 %; HCT 39.7 % (34.0-46.0); HGB 12.8 gm/dL (11.4-16.0); Hypochromasia Slight; Lymphocytes # (A) 1.5 k/uL (1.0-4.8); Lymphocytes % (A) 25 %; MCH 30.5 pg (25.0-35.0); MCHC 32.1 g/dL (31.0-37.0); Mean Platelet Volume 9.1; Monocytes # (A) 0.3 k/uL (0-1.0); Monocytes % (A) 5 %; Neutrophils # (A) 3.9 k/uL (1.3-7.7); Neutrophils % (A) 64 %; Platelet Count 187 k/uL (150-450); RBC 4.18 m/uL (3.80-5.40); RDW 14.1 % (11.5-15.5); WBC 6.1 k/uL (3.8-10.6)
--- NOTE | 2024-03-31 10:07 | XR ---
EXAMINATION TYPE: XR chest 2V DATE OF EXAM: 03/31/2024 COMPARISON: NONE CLINICAL INDICATION: Female, 89 years old with history of Chest Pain; , TECHNIQUE: XR chest 2V views of the chest. FINDINGS: The lungs are clear and there is no pneumothorax, pleural effusion, or focal pneumonia. Heart size normal and no overt failure. Osseous structures demonstrate hypertrophic and degenerative changes of the spine. Bilateral shoulder arthropathy. Sclerotic density left humeral head is likely old. IMPRESSION: 1. No acute process. [facility], , 03/31/2024 10:04 AM
[2024-03-31 10:09] LABS: ALT 13 U/L (4-34); AST 25 U/L (14-36); African American GFR (CKD) 72 (>60 ml/min/1.73 sqM); Albumin 3.4 g/dL (3.5-5.0); Alkaline Phosphatase 88 U/L (38-126); Anion Gap 8 mmol/L; Blood Urea Nitrogen 17 mg/dL (7-17); Calcium 9.6 mg/dL (8.4-10.2); Carbon Dioxide 19 mmol/L (22-30); Chloride 112 mmol/L (98-107); Glucose 90 mg/dL (74-99); Non-African American GFR(CKD) 63 (>60 ml/min/1.73 sqM); Potassium 3.8 mmol/L (3.5-5.1); Sodium 139 mmol/L (137-145); Total Bilirubin 0.7 mg/dL (0.2-1.3)
[2024-03-31 10:19] LABS: Partial Thromboplastin Time 22.5 sec (22.0-30.0); Prothrombin Time 10.6 sec (10.0-12.5)
[2024-03-31] MEDS: KETOROLAC 15 MG/ML 1 ML VIAL IVP STA (10:51)
[2024-03-31 11:54] VITALS: BP 129/53; PULSE 67; RESP 12
== END 2024-03-31 12:18 | disposition home or self-care (01) ==
LOC: EC 09:12
DX: R07.89 Other chest pain (principal); R54 Age-related physical debility; Z87.891 Personal history of nicotine dependence; Z88.0 Allergy status to penicillin; Z88.5 Allergy status to narcotic agent; Z91.041 Radiographic dye allergy status; Z88.2 Allergy status to sulfonamides
CPT/HCPCS: 36415; 93005; 80053; 83735; 84484; 85025; 85610; 85730; 71046; 99285; 96374; J1885